=== PATIENT | female | born 1990 | race Caucasian/White ===

== ENCOUNTER 2018-05-17 04:08 | Inpatient (IN) | payer SELFPAY ==
[2018-05-17] MEDS ORDERED: NA CHLORIDE 0.9% 1,000 ML ONE (04:36)
[2018-05-17 05:16] LABS: Urine Blood TRACE (NEG); Urine Glucose 2+ (NEG); Urine Protein NEGATIVE (NEG); Urine Specific Gravity 1.015 (1.005-1.030)
[2018-05-17 05:37] LABS: Urine Culture Reflex Order REFLEXED
[2018-05-17 05:38] LABS: Urine Bacteria 20-50 /HPF (<20); Urine RBC <5 /HPF (NONE SEEN)
[2018-05-17 06:22] LABS: Absolute Lymphocytes (CBC) 0.9 K/uL (0.7-4.9); Absolute Monocytes 0.5 K/uL (0.1-1.3); Absolute Neutrophil 5.1 K/uL (1.8-8.0); Basophils % 0.4 % (0-1.3); Eosinophils % 1.1 % (0-4.4); Hematocrit 38.5 % (36.0-45.0); MCH 28.1 pg (27.0-35.0); MCV 83.6 fL (80-100); MPV 8.6 fL (7.6-11.3); Monocytes % 8.1 % (3.3-12.3)
[2018-05-17 06:34] LABS: BUN Blood Urea Nitrogen 16 mg/dL (7-18); Bicarbonate 26 mmol/L (21-32); Glucose Level 185 mg/dL (74-106); Magnesium 2.2 mg/dL (1.8-2.4); Phosphorus 1.1 mg/dL (2.5-4.9); Potassium 3.4 mmol/L (3.5-5.1); Sodium Level 138 mmol/L (136-145)
--- NOTE | 2018-05-17 06:56 | EDPHYS ---
Physician Documentation [facility] Name: Georgiana Fenton Age: 27 yrs Sex: Female : 1990 Arrival Date: 05/17/2018 Time: 04:15 Bed 7 Private MD: ED Physician Bautista Diggs HPI: 05/17 06:51 This 27 yrs old Female presents to ER via Ambulatory with complaints of Back gs Pain, Abdominal Pain. 06:51 The patient presents with pain that is acute. The symptoms are located in the low back. gs Onset: The symptoms/episode began/occurred 2 day(s) ago. Associated signs and symptoms: Pertinent negatives: fever. Severity of symptoms: At their worst the symptoms were moderate, in the emergency department the symptoms are unchanged. The patient has experienced similar episodes in the past, a few times. 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 - Social history:: Smoking status: Patient/guardian denies using tobacco. - Ebola Screening: : No symptoms or risks identified at this time. ROS: 06:51 All other systems are negative. gs Exam: 06:51 Head/Face: Normocephalic, atraumatic. Eyes: Pupils equal round and reactive to light, gs extra-ocular motions intact. Lids and lashes normal. Conjunctiva and sclera are non-icteric and not injected. Cornea within normal limits. Periorbital areas with no swelling, redness, or edema. ENT: Nares patent. No nasal discharge, no septal abnormalities noted. Tympanic membranes are normal and external auditory canals are clear. Oropharynx with no redness, swelling, or masses, exudates, or evidence of obstruction, uvula midline. Mucous membranes moist. Neck: Trachea midline, no thyromegaly or masses palpated, and no cervical lymphadenopathy. Supple, full range of motion without nuchal rigidity, or vertebral point tenderness. No Meningismus. Chest/axilla: Normal chest wall appearance and motion. Nontender with no deformity. No lesions are appreciated. 06:51 Respiratory: Lungs have equal breath sounds bilaterally, clear to auscultation and percussion. No rales, rhonchi or wheezes noted. No increased work of breathing, no retractions or nasal flaring. Abdomen/GI: Soft, non-tender, with normal bowel sounds. No distension or tympany. No guarding or rebound. No evidence of tenderness throughout. Skin: Warm, dry with normal turgor. Normal color with no rashes, no lesions, and no evidence of cellulitis. MS/ Extremity: Pulses equal, no cyanosis. Neurovascular intact. Full, normal range of motion. Neuro: Awake and alert, GCS 15, oriented to person, place, time, and situation. Cranial nerves II-XII grossly intact. Motor strength 5/5 in all extremities. Sensory grossly intact. Cerebellar exam normal. Normal gait. 06:51 Constitutional: The patient appears alert, awake. 06:51 Cardiovascular: Rate: tachycardic, Rhythm: regular, Pulses: no pulse deficits are appreciated. 06:51 Back: CVA tenderness, that is moderate, is noted on the right. Vital Signs: 04:30 BP 146 / 92; Pulse 111; Resp 18; Temp 98.4(O); Pulse Ox 98% on R/A; Weight 61.23 kg; lp1 Height 5 ft. 3 in. (160.02 cm); Pain 8/10; 05:30 BP 121 / 82; Pulse 104; Resp 16; Pulse Ox 98% on R/A; lp1 06:45 BP 123 / 81; Pulse 102; Resp 16; Pulse Ox 97% on R/A; lp1 07:48 BP 121 / 82; Pulse 93; Resp 18; Pulse Ox 96% on R/A; Pain 7/10; ph 09:44 BP 119 / 76; Pulse 94; Resp 18; Pulse Ox 97% ; ph 10:37 BP 116 / 74; Pulse 100; Resp 18; Pulse Ox 100% on R/A; aj1 04:30 Body Mass Index 23.91 (61.23 kg, 160.02 cm) lp1 MDM: 04:26 Patient medically screened. gs 06:51 Differential diagnosis: Pyelonephritis sprain. Data reviewed: vital signs, nurses gs notes. Response to treatment: the patient's symptoms have mildly improved after treatment. 05/17 04:25 Order name: Basic Metabolic Panel 05/17 04:25 Order name: CBC with Diff 05/17 04:25 Order name: Magnesium 05/17 04:25 Order name: Urine Microscopic Only 05/17 04:25 Order name: Phosphorus 05/17 04:28 Order name: Urine Dipstick--Ancillary (enter results) [facility] 05/17 04:28 Order name: Urine --Ancillary (enter results) [facility] 05/17 05:16 Order name: Urine --Ancillary; Complete Time: 06:42 EDMS 05/17 05:16 Order name: Urine Dipstick-Ancillary; Complete Time: 06:42 EDMS 05/17 05:38 Order name: Urine Microscopic Only; Complete Time: 06:42 EDMS 05/17 06:24 Order name: CBC with Automated Diff; Complete Time: 07:03 EDMS 05/17 06:34 Order name: Basic Metabolic Panel; Complete Time: 07:03 EDMS 05/17 06:34 Order name: Phosphorus; Complete Time: 07:03 EDMS 05/17 06:34 Order name: Magnesium; Complete Time: 07:03 EDMS 05/17 04:25 Order name: Cardiac monitoring; Complete Time: 05:25 05/17 04:25 Order name: IV Saline Lock; Complete Time: 05:25 05/17 04:25 Order name: Labs collected and sent; Complete Time: 05:04 05/17 04:25 Order name: O2 Per Protocol; Complete Time: 04:53 05/17 04:25 Order name: O2 Sat Monitoring; Complete Time: 04:53 05/17 04:25 Order name: Urine Dipstick-Ancillary (obtain specimen); Complete Time: 04:26 05/17 08:51 Order name: CT EDMS Administered Medications: 05:25 Drug: NS 0.9% 1000 ml Route: IV; Rate: 1 bolus; Site: left antecubital; lp1 07:02 Drug: Rocephin - (cefTRIAXone) 1 grams Route: IVPB; Infused Over: 30 mins; Site: left lp1 antecubital; 07:46 Follow up: Response: No adverse reaction; IV Status: Completed infusion ph 07:28 Drug: Potassium Phosphate 15 mmol Route: IV; Rate: 15 calculated rate; Site: left ph antecubital; 07:47 Follow up: Response: No adverse reaction; IV Status: Infusion continued upon admission ph 07:46 Drug: morphine 4 mg Route: IVP; Site: left antecubital; ph 08:00 Follow up: Response: No adverse reaction; Pain is decreased ph 07:46 Drug: Zofran 4 mg Route: IVP; Site: left antecubital; ph 08:00 Follow up: Response: No adverse reaction; Nausea is increased ph 07:57 Drug: Zofran 4 mg Route: IVP; Site: left antecubital; ph 18:40 Follow up: Response: No adverse reaction ph 08:45 Drug: Phenergan 12.5 mg Route: IVP; Site: right wrist; ph 09:10 Follow up: Response: No adverse reaction; Nausea is decreased; Vomiting decreased ph Disposition: 05/17/18 06:54 Hospitalization ordered by Felix Aguirre for Observation. Preliminary diagnosis are Acute tubulo-interstitial nephritis, hypophosphatemia. - Bed requested for Telemetry/MedSurg (observation). - Status is Observation. ph - Condition is Stable. - Problem is new. - Symptoms have improved. UTI on Admission? Yes Signatures: Dispatcher [employer] EDMS Brigitte Carpenter Laura, RN RN lp1 Paz Jiménez RN RN ph Diggs, MD RIGOBERTO Baum Corrections: (The following items were deleted from the chart) 10:02 06:54 Hospitalization Ordered by Felix Aguirre MD for Observation. Preliminary bd diagnosis is Acute tubulo-interstitial nephritis; hypophosphatemia. Bed requested for Telemetry/MedSurg (observation). Status is Observation. Condition is Stable. Problem is new. Symptoms have improved. UTI on Admission? Yes. gs 10:48 10:02 05/17/2018 06:54 Hospitalization Ordered by Felix Aguirre MD for Observation. ph Preliminary diagnosis is Acute tubulo-interstitial nephritis; hypophosphatemia. Bed requested for Telemetry/MedSurg (observation). Status is Observation. Condition is Stable. Problem is new. Symptoms have improved. UTI on Admission? Yes. bd
--- NOTE | 2018-05-17 06:56 | ER ---
Nurse's Notes [facility] Name: Georgiana Fenton Age: 27 yrs Sex: Female : 1990 Arrival Date: 05/17/2018 Time: 04:15 Bed 7 Private MD: Diagnosis: Acute tubulo-interstitial nephritis;hypophosphatemia Presentation: 05/17 04:25 Presenting complaint: Patient states: Lower back pain to right and left flanks, lower lp1 pelvic pain x 1 day; complaint of diarrhea, nausea; Denies fever. Transition of care: patient was not received from another setting of care. Onset of symptoms was May 16, 2018. Risk Assessment: Do you want to hurt yourself or someone else? Patient reports no desire to harm self or others. Initial Sepsis Screen: Does the patient meet any 2 criteria? No. Patient's initial sepsis screen is negative. Does the patient have a suspected source of infection? No. Patient's initial sepsis screen is negative. Care prior to arrival: Glucose check: 340. 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 - Social history:: Smoking status: Patient/guardian denies using tobacco. - Ebola Screening: : No symptoms or risks identified at this time. Screenin:31 Abuse screen: Denies threats or abuse. Denies injuries from another. Nutritional lp1 screening: No deficits noted. Tuberculosis screening: No symptoms or risk factors identified. Fall Risk None identified. Assessment: 04:31 General: Appears uncomfortable, Behavior is appropriate for age. Pain: Complains of lp1 pain in left low back, right low back, right lower quadrant and left lower quadrant Pain currently is 8 out of 10 on a pain scale. Quality of pain is described as sharp, Is intermittent. Neuro: Level of Consciousness is awake, alert, obeys commands. Cardiovascular: Patient's skin is warm and dry. Respiratory: Respiratory effort is even, unlabored. GI: Abdomen is non-distended, Abdomen is tender to palpation in right lower quadrant and left lower quadrant Reports lower abdominal pain, diarrhea, nausea. : No signs and/or symptoms were reported regarding the genitourinary system. EENT: No signs and/or symptoms were reported regarding the EENT system. Derm: Skin is pink, warm \\T\\ dry. Musculoskeletal: Circulation, motion, and sensation intact. 05:30 Reassessment: Patient appears in no apparent distress at this time. No changes from lp1 previously documented assessment. 06:30 Reassessment: Patient is alert, oriented x 3, equal unlabored respirations, skin lp1 warm/dry/pink. Patient states feeling better. Patient states symptoms have improved. 07:47 Reassessment: Patient appears in no apparent distress at this time. Patient and/or ph family updated on plan of care and expected duration. Pain level reassessed. Patient is alert, oriented x 3, equal unlabored respirations, skin warm/dry/pink. Pt resting quietly, c/o "slight" nausea and low back pain 12/24, ERP notified, see MAR, VSS at this time, awaiting room assignment. 07:57 Reassessment: Pt c/o nausea after receiving pain medication, ERP notified, additional ph antiemetic administered, see MAR. 08:45 Reassessment: Patient appears in no apparent distress at this time. Patient and/or ph family updated on plan of care and expected duration. Pain level reassessed. Patient is alert, oriented x 3, equal unlabored respirations, skin warm/dry/pink. Pt returned from CT, c/o nausea and noted to be actively vomiting, ERP notified, see MAR. 09:43 Reassessment: Patient appears in no apparent distress at this time. Patient and/or ph family updated on plan of care and expected duration. Pain level reassessed. Patient is alert, oriented x 3, equal unlabored respirations, skin warm/dry/pink. Pt resting quietly, reports that nausea has improved, awaiting room assignment. 10:37 Reassessment: Patient appears in no apparent distress at this time. No changes from aj1 previously documented assessment. Patient and/or family updated on plan of care and expected duration. Pain level reassessed. Patient is alert, oriented x 3, equal unlabored respirations, skin warm/dry/pink. Vital Signs: 04:30 BP 146 / 92; Pulse 111; Resp 18; Temp 98.4(O); Pulse Ox 98% on R/A; Weight 61.23 kg; lp1 Height 5 ft. 3 in. (160.02 cm); Pain 8/10; 05:30 BP 121 / 82; Pulse 104; Resp 16; Pulse Ox 98% on R/A; lp1 06:45 BP 123 / 81; Pulse 102; Resp 16; Pulse Ox 97% on R/A; lp1 07:48 BP 121 / 82; Pulse 93; Resp 18; Pulse Ox 96% on R/A; Pain 7/10; ph 09:44 BP 119 / 76; Pulse 94; Resp 18; Pulse Ox 97% ; ph 10:37 BP 116 / 74; Pulse 100; Resp 18; Pulse Ox 100% on R/A; aj1 04:30 Body Mass Index 23.91 (61.23 kg, 160.02 cm) lp1 ED Course: 04:15 Patient arrived in ED. es 04:17 Bautista Diggs MD is Attending Physician. gs 04:24 Margy Cross, RN is Primary Nurse. lp1 04:28 Triage completed. lp1 04:31 Arm band placed on. lp1 04:36 Patient has correct armband on for positive identification. lp1 04:50 Missed attempt(s): 20 gauge in right forearm. 22 gauge in right antecubital area. jb4 04:51 Urine Microscopic Only Sent. jb4 05:04 Magnesium Sent. jb4 05:04 Basic Metabolic Panel Sent. jb4 05:04 CBC with Diff Sent. jb4 05:04 Phosphorus Sent. jb4 05:24 Missed attempt(s): 22 gauge in left forearm. Inserted saline lock: 20 gauge in left lp1 antecubital area, using aseptic technique. Blood collected. 06:53 Felix Aguirre MD is Hospitalizing Provider. gs 07:49 Primary Nurse role handed off by Margy Cross, RN ph 07:49 Paz Jiménez, RN is Primary Nurse. ph 08:45 Inserted saline lock: 22 gauge in right wrist, using aseptic technique. inserted while ph in radiology for CT scan, 20 g to LAC d/c, intact, bleeding controlled. 10:36 Report given to LOWELL Mohamud on 2nd floor. aj1 10:38 No provider procedures requiring assistance completed. Patient admitted, IV remains in aj1 place. Administered Medications: 05:25 Drug: NS 0.9% 1000 ml Route: IV; Rate: 1 bolus; Site: left antecubital; lp1 07:02 Drug: Rocephin - (cefTRIAXone) 1 grams Route: IVPB; Infused Over: 30 mins; Site: left lp1 antecubital; 07:46 Follow up: Response: No adverse reaction; IV Status: Completed infusion ph 07:28 Drug: Potassium Phosphate 15 mmol Route: IV; Rate: 15 calculated rate; Site: left ph antecubital; 07:47 Follow up: Response: No adverse reaction; IV Status: Infusion continued upon admission ph 07:46 Drug: morphine 4 mg Route: IVP; Site: left antecubital; ph 08:00 Follow up: Response: No adverse reaction; Pain is decreased ph 07:46 Drug: Zofran 4 mg Route: IVP; Site: left antecubital; ph 08:00 Follow up: Response: No adverse reaction; Nausea is increased ph 07:57 Drug: Zofran 4 mg Route: IVP; Site: left antecubital; ph 18:40 Follow up: Response: No adverse reaction ph 08:45 Drug: Phenergan 12.5 mg Route: IVP; Site: right wrist; ph 09:10 Follow up: Response: No adverse reaction; Nausea is decreased; Vomiting decreased ph Outcome: 06:54 Decision to Hospitalize by Provider. gs 10:45 Admitted to Med/surg accompanied by tech, via stretcher, with chart. ph 10:45 Condition: good 10:45 Instructed on the need for admit. 10:48 Patient left the ED. ph Signatures: Falguni Avila RN RN aj1 Linda Quinones Laura, RN RN lp1 Paz Jiménez RN RN ph Trip José RN RN jb4 Bautista Diggs MD MD gs
[2018-05-17] MEDS ORDERED: CEFTRIAXONE/SWI 1gm 1 GM/10 ML SYR ONE (07:04)
[2018-05-17] MEDS ORDERED: POTASSIUM PHOS IN 0.9 % NACL 15 MMOL/250 ML BAG IV ONE (07:07)
[2018-05-17] MEDS ORDERED: ONDANSETRON 4 MG/2 ML VIAL IV PRN (07:38)
[2018-05-17] MEDS ORDERED: MORPHINE 2 MG/ML SYR IV PRN (07:38)
[2018-05-17] MEDS ORDERED: ACETAMINOPHEN 500 MG TAB PO PRN (07:38)
[2018-05-17] MEDS ORDERED: ONDANSETRON 4 MG/2 ML VIAL ONE (07:41)
[2018-05-17] MEDS ORDERED: MORPHINE 4 MG/ML SYR ONE (07:41)
[2018-05-17] MEDS ORDERED: POTASSIUM PHOS 30 MM in NA CHLORIDE 0.9% 500 ML IV ONE (07:43)
[2018-05-17] MEDS: NA CHLORIDE 0.9% 1,000 ML IV SCH ×3 (08:00→18:00)
[2018-05-17] MEDS ORDERED: PROMETHAZINE 25 MG/ML VIAL ONE (08:44)
--- NOTE | 2018-05-17 08:50 | RAD REPORT ---
EXAM DESCRIPTION: CTAbdomen Pelvis W Contrast - 05/17/2018 8:31 am CLINICAL HISTORY: Abdominal pain. Abdominal pain/pyelonephritis/back pain COMPARISON: CT ABD PELVIS W CONTRAST dated 04/06/2014; CT ABD PELVIS W CONTRAST dated 12/18/2013 TECHNIQUE: Biphasic CT imaging of the abdomen and pelvis was performed with 100 ml non-ionic IV cont rast. All CT scans are performed using dose optimization technique as appropriate and may include automated exposure control or mA/KV adjustment according to patient size. FINDINGS: The lung bases are clear.Cholecystectomy clips. The liver, spleen, pancreas, adrenal glands and left kidney are within normal limits. Punctate right nephrolithiasis. No bowel obstruction, free air, free fluid or abscess. The appendix is normal. No evidence of signi ficant lymphadenopathy. No suspicious bony findings. IMPRESSION: Punctate right nephrolithiasis without hydronephrosis. Normal appendix.
--- NOTE | 2018-05-17 08:53 | P.HP ---
Certification for Inpatient Patient admitted to: Observation With expected LOS: <2 Midnights Patient will require the following post-hospital care: None Practitioner: I am a practitioner with admitting privileges, knowledge of patient current condition, hospital course, and medical plan of care. Services: Services provided to patient in accordance with Admission requirements found in Title 42 Section 412.3 of the Code of Federal Regulations Patient History Date of Service: 05/17/18 Reason for admission: Abdominal pain and back pain along with nausea History of Present Illness: Patient is a 27-year-old female came into the hospital with abdominal pain. Patient also been having some flank tenderness. She came into the emergency room because her symptoms were not improving. Patient has been feeling really weak. She had hypophosphatemia. She has also had some diarrhea. She came into the ER because she has was feeling worse. Patient will be admitted to the hospital for further workup. Allergies No Known Drug Allergies Allergy (Verified 06/24/14 06:18) Unknown Home Medications: Insulin -Regular Human [Novolin -R*] 1 dose IJ ACHS 06/27/14 Ondansetron [Zofran (Odt)*] 4 mg PO Q6H PRN 07/01/14 Insulin NPH Human [Novolin N (Humulin N)*] 10 units SQ BIDWM #10 ml 07/05/14 LORazepam [Ativan*] 0.5 mg PO Q6HR PRN #30 tab 07/05/14 - Past Medical/Surgical History Diabetic: Yes -: DM1 -: Anxiety -: Intractable vomiting (03/2014) -: Abdominal pain/Periumbilical -: Gastroparesis -: Cholecystectomy - Family History Father Family History: Reviewed- Non-Contributory - Social History Smoking Status: Unknown if ever smoked Alcohol use: No CD- Drugs: No Caffeine use: Yes Review of Systems 10-point ROS is otherwise unremarkable Physical Examination - Vital Signs Temperature: 98 F Blood Pressure: 140/70 Pulse: 80 Respirations: 18 Pulse Ox (%): 96 - Physical Exam General: Alert, In no apparent distress, Oriented x3 HEENT: Atraumatic, Normocephalic, PERRLA Neck: Supple, 2+ carotid pulse no bruit, JVD not distended, No Thyromegaly Respiratory: Clear to auscultation bilaterally, Normal air movement Cardiovascular: Regular rate/rhythm, Normal S1 S2, No murmurs Gastrointestinal: Normal bowel sounds, Hypoactive, Soft and benign, Non- distended, W/out hepatomegaly Musculoskeletal: No clubbing, No swelling, No contractures, No erythema Integumentary: No rashes Neurological: Normal gait, Normal speech, Normal strength at 5/5 x4 extr, Normal tone, Sensation intact, Cranial nerves 3-12 intact Lymphatics: No axilla or inguinal lymphadenopathy External genitalia: No edema - Studies Laboratory Data (last 24 hrs) 05/17/18 06:12: WBC 6.6, Hgb 12.9, Hct 38.5, Plt Count 260 05/17/18 06:12: Sodium 138, Potassium 3.4 L, BUN 16, Creatinine 0.70, Glucose 185 H, Phosphorus 1.1 L, Magnesium 2.2 Assessment & Plan - Problems (Diagnosis) (1) Flank pain Current Visit: Yes Status: Acute (2) Diarrhea Current Visit: Yes Status: Acute (3) Hypophosphatemia Current Visit: Yes Status: Acute (4) Abdominal pain Onset Date: 04/08/14 Current Visit: No Status: Acute (5) Diabetes mellitus type 1 Onset Date: 04/14/14 Current Visit: No Status: Acute - Plan Plan: 1. IV hydration 2. Stool studies 3. CT abdomen and pelvis 4. IV antibiotics 5. Pain control 6. Replace phosphorus 7. GI and DVT prophylaxis Discharge Plan: Home Plan to discharge in: 24 Hours - Advance Directives Does patient have a Living Will: No Does patient have a Durable POA for Healthcare: No - Code Status/Comfort Care Code Status Assessed: Yes Code Status: Full Code Critical Care: No Time Spent Managing PTS Care (In Minutes): 50
[2018-05-17] MEDS ORDERED: HYDROCODONE/APAP 5/325 MG TAB PO PRN (08:54)
[2018-05-17 11:28] VITALS: BMI 23.9
[2018-05-17] MEDS ORDERED: D50W 25 GM/50 ML SYRINGE IV PRN (13:23)
[2018-05-17] MEDS ORDERED: GLUCAGON 1 MG/VIAL IM PRN (13:23)
[2018-05-17] MEDS ORDERED: CEFTRIAXONE 1 GM/NS 50 ML 1 GM/50 ML BAG IV SCH (14:00)
[2018-05-17] MEDS: INSULIN -REGULAR HUMAN 50 UNIT/0.5 ML ML SQ SCH ×2 (17:55→21:00)
--- NOTE | 2018-05-17 19:28 | PN ---
Date of Progress Note: 05/17/2018 Subjective: Patient seen and examined. Chart reviewed and case discussed with RN. The patient still complaining of some diarrhea and nausea, but has not thrown up since earlier this morning. Would like to try some liquids. Pain is controlled. Medications: List reviewed. Physical Examination: Vital Signs: Temperature 98, heart rate 80, blood pressure 140/70, respirations 18, O2 96% on room air. General: Awake, alert, oriented x3, in some mild distress due to abdominal discomfort, ill-appearing female. CV: S1, S2. Peripheral pulses present. No murmurs respiratory moving air well bilaterally. No wheezing or stridor. No use of accessory muscles. Gastrointestinal: Abdomen is soft. Mild tenderness to palpation. No guarding or rigidity. Bowel sounds positive. Extremities: No clubbing, cyanosis, or edema. No calf tenderness. Skin: No rash. Skin turgor. Neuro: Cranial nerves 2 through 12 intact grossly. No focal neurological deficit. Speech is normal. Laboratory Data: Sodium 138, potassium 3.4, chloride 105, CO2 26, BUN 16, creatinine 0.7, glucose 185. Hemoglobin A1c pending. Calcium 7.8, phosphorus 1.1. WBC 6.6, hemoglobin and hematocrit 12.9 and 38.5, platelets 260, neutrophils 77%. CT scan of the abdomen and pelvis shows a punctate right nephrolithiasis without hydronephrosis. Normal appendix. Assessment: A 27-year-old female with: 1. Flank pain may be related to nephrolithiasis. 2. Intractable nausea and vomiting. Continue antiemetics. The patient may have an element of diabetic gastroparesis. She is a type 1 diabetic since the age of 14, not well controlled. We will continue with symptomatic treatment. Continue IV fluids. 3. Diarrhea rule out Clostridium difficile. We will obtain stool sample. Follow up on stool studies. 4. Generalized abdominal pain secondary to above. 5. Diabetes mellitus type 1 with hyperglycemia. 6. Anxiety disorder, on Ativan p.r.n. 7. Diabetic gastroparesis. 8. Hypokalemia. We will replace and monitor. 9. Hypophosphatemia. We will replace and monitor. 10. Hypocalcemia. 11. Acute cystitis without hematuria. We will continue with IV antibiotics. Follow up on urine culture. Likely discharge in the next 24 to 48 hours pending on clinical response. We will add mild sliding-scale insulin a.c. and at bedtime. Once the patient is able to tolerate p.o. intake, we will resume home dose of long-acting insulin. Check A1C. /NU Voice ID: [id number] Report ID: [id number] MTDD
[2018-05-18] MEDS: NA CHLORIDE 0.9% 1,000 ML IV SCH ×4 (00:15→20:21)
[2018-05-18 05:14] LABS: Absolute Lymphocytes (CBC) 1.7 K/uL (0.7-4.9); Absolute Monocytes 0.5 K/uL (0.1-1.3); Absolute Neutrophil 1.2 K/uL (1.8-8.0); Basophils % 0.7 % (0-1.3); Hematocrit 31.8 % (36.0-45.0); Lymphocytes % 47.5 % (15.3-44.8); MCH 28.1 pg (27.0-35.0); MCV 84.1 fL (80-100); MPV 8.9 fL (7.6-11.3); Monocytes % 13.2 % (3.3-12.3); RBC Red Blood Cell Count 3.78 M/uL (3.86-4.86)
[2018-05-18 05:38] LABS: Albumin 2.8 g/dL (3.4-5.0); Alkaline Phosphatase 221 U/L (45-117); BUN Blood Urea Nitrogen 6 mg/dL (7-18); Bicarbonate 25 mmol/L (21-32); Bilirubin Total 0.3 mg/dL (0.2-1.0); Glucose Level 212 mg/dL (74-106); Potassium 3.4 mmol/L (3.5-5.1); Protein, Total 6.1 g/dL (6.4-8.2); Sodium Level 140 mmol/L (136-145)
[2018-05-18 05:41] LABS: ALT/SGPT 533 U/L (12-78); AST/SGOT 594 U/L (15-37)
[2018-05-18] MEDS ORDERED: NPH (HUMAN) 100 UNITS/ML INSULIN SQ SCH (08:00)
[2018-05-18] MEDS ORDERED: CEFTRIAXONE/SWI 1gm 1 GM/10 ML SYR IV SCH (09:00)
[2018-05-18] MEDS ORDERED: CEFTRIAXONE 1 GM/NS 50 ML 1 GM/50 ML BAG IV SCH (09:03)
[2018-05-18] MEDS: INSULIN -REGULAR HUMAN 50 UNIT/0.5 ML ML SQ SCH ×4 (09:35→21:50)
[2018-05-18 10:51] LABS: Absolute Lymphocytes (CBC) 1.6 K/uL (0.7-4.9); Absolute Monocytes 0.5 K/uL (0.1-1.3); Absolute Neutrophil 3.7 K/uL (1.8-8.0); Basophils % 0.6 % (0-1.3); Eosinophils % 2.9 % (0-4.4); Hematocrit 33.9 % (36.0-45.0); Lymphocytes % 27.1 % (15.3-44.8); MCV 84.9 fL (80-100); MPV 8.9 fL (7.6-11.3); Monocytes % 8.5 % (3.3-12.3)
[2018-05-18 11:26] LABS: Alkaline Phosphatase 231 U/L (45-117); BUN Blood Urea Nitrogen 7 mg/dL (7-18); Bicarbonate 23 mmol/L (21-32); Bilirubin Total 0.3 mg/dL (0.2-1.0); Magnesium 2.3 mg/dL (1.8-2.4); Phosphorus 2.2 mg/dL (2.5-4.9); Protein, Total 6.4 g/dL (6.4-8.2); Sodium Level 137 mmol/L (136-145)
[2018-05-18 11:40] LABS: ALT/SGPT 509 U/L (12-78); AST/SGOT 429 U/L (15-37); Glucose Level 434 mg/dL (74-106)
[2018-05-18] MEDS: INSULIN GLARGINE 100 UNITS/ML SQ SCH (12:21)
[2018-05-18 19:45] VITALS: O2SAT 98
--- NOTE | 2018-05-18 21:12 | PN ---
Date of Progress Note: 05/18/2018 Subjective: The patient was seen and examined. Chart reviewed and case discussed with RN. The patient states her condition is improved. Not having as much nausea. No vomiting. The patient was able to tolerate her clear liquid diet. Abdominal pain is improved. Medications: List reviewed. Physical Examination: Vital Signs: Temperature 97, heart rate 75, blood pressure 121/70, respirations 20, O2 98% on room air. General: Awake, alert, oriented x3. Some mild distress, ill-appearing female. CV: S1, S2. No murmurs. Regular rate and rhythm. Peripheral pulses present. Respiratory: Moving air well bilaterally. No wheezing. Gastrointestinal: Abdomen is mildly tender. No rebound or guarding. Nondistended. Positive bowel sounds. Extremities: No clubbing, cyanosis, edema. Neurologic: Nonfocal. Laboratory Data: Sodium 137, potassium 4, chloride 105, CO2 23, BUN 7, creatinine 0.6, glucose 434. Hemoglobin A1c pending. Calcium 7.5, phosphorus 2.2, magnesium 2.3. AST 429, ALT 509, WBC 6, H and H 11.2 and 33.9, platelets 220. Stool culture pending. Urine culture, mixed jeremy. Assessment And Plan: A 27-year-old female with: 1. Flank pain, likely secondary to nephrolithiasis. 2. Right nephrolithiasis without hydronephrosis. Continue with IV fluid hydration. 3. Intractable nausea and vomiting. Continue antiemetics, improved. We will advance diet as tolerated. 4. Diarrhea, rule out Clostridium difficile. Obtain stool culture, improving. 5. Generalized abdominal pain secondary to above, improved. 6. Elevated liver enzymes, possibly due to medication side effect. Hepatitis panel is pending. 7. Diabetes mellitus type 1 with hyperglycemia. We will adjust insulin dose. The patient has only been taking insulin as needed. She is not on any long- acting insulin at home. She needs to follow up with her established care with PCP and prover. 8. Generalized anxiety disorder. Ativan p.r.n. 9. Diabetic gastroparesis. 10. Hypokalemia. Replace and monitor. 11. Hypophosphatemia. Replace and monitor. 12. Hypocalcemia, corrected. 13. Acute cystitis without hematuria. Urine culture growing mixed jeremy. We will discontinue IV antibiotics. Plan: Follow up on hepatitis panel. Trend LFTs, likely discharge in the next 24 hours depending on diet and clinical status. SA/MODNathan Voice ID: [id number] Report ID: [id number] MICHELLE
[2018-05-19] MEDS: NA CHLORIDE 0.9% 1,000 ML IV SCH (04:01)
[2018-05-19 06:55] LABS: Protime INR 0.88
[2018-05-19 06:56] LABS: AST/SGOT 148 U/L (15-37); Albumin 2.9 g/dL (3.4-5.0); Alkaline Phosphatase 200 U/L (45-117); BUN Blood Urea Nitrogen 6 mg/dL (7-18); Bicarbonate 27 mmol/L (21-32); Bilirubin Total 0.2 mg/dL (0.2-1.0); Glucose Level 118 mg/dL (74-106); Lipase 96 U/L (73-393); Potassium 3.8 mmol/L (3.5-5.1); Protein, Total 6.3 g/dL (6.4-8.2); Sodium Level 143 mmol/L (136-145)
[2018-05-19 06:57] LABS: ALT/SGPT 343 U/L (12-78)
[2018-05-19 07:05] LABS: Absolute Lymphocytes (CBC) 2.7 K/uL (0.7-4.9); Absolute Monocytes 0.4 K/uL (0.1-1.3); Absolute Neutrophil 1.6 K/uL (1.8-8.0); Basophils % 0.7 % (0-1.3); Hematocrit 32.5 % (36.0-45.0); Lymphocytes % 54.5 % (15.3-44.8); MCH 28.5 pg (27.0-35.0); MCV 83.7 fL (80-100); MPV 9.2 fL (7.6-11.3); Monocytes % 8.6 % (3.3-12.3); RBC Red Blood Cell Count 3.88 M/uL (3.86-4.86)
[2018-05-19] MEDS: INSULIN -REGULAR HUMAN 50 UNIT/0.5 ML ML SQ SCH ×2 (07:30→11:49)
[2018-05-19] MEDS: INSULIN GLARGINE 100 UNITS/ML SQ SCH (09:34)
[2018-05-19 15:14] VITALS: BP 115/73; TEMP 97.9
--- NOTE | 2018-05-20 06:23 | DS ---
Date of Discharge: 05/19/2018 Admitting Diagnoses: 1.Flank pain. 2.Diarrhea. 3.Hypophosphatemia. 4.Abdominal pain. 5.Diabetes mellitus type 1 with hyperglycemia. Discharge Diagnoses: A 27-year-old female with: 1.Flank pain, likely secondary to nephrolithiasis. 2.Right nephrolithiasis without hydronephrosis. 3.Intractable nausea and vomiting, resolved. 4.Diarrhea, resolved. 5.Generalized abdominal pain secondary to above. 6.Elevated liver enzymes; doubt hepatitis, panel pending, likely secondary to side effect from Rocep hin and that was trending down. 7.Diabetes mellitus type 1 with hyperglycemia. Patient counseled regarding diabetes. We will be fo llowing up with diabetes education as an outpatient to [place] [facility]. Patient needs to estab [facility] with PCP and investigative writer. 8.Generalized anxiety disorder, stable. 9.Possible diabetic gastroparesis. Patient tolerating diet. 10.Hypokalemia, replaced. 11.Hypophosphatemia, corrected. 12.Hypocalcemia. Adjusted calcium level was normal. 13.Acute cystitis without hematuria. Urine culture growing mixed jeremy. She was treated with Rocep hin. No further need for antibiotics. Hospital Course: The patient is a 27-year-old type 1 diabetic, who came into the hospital with diarr hea, flank pain. CT scan of the abdomen and pelvis showed nephrolithiasis, but no hydronephrosis or obstruction. Patient was started on IV antibiotics. She did have some acute cystitis. Her urine cu ltures grew out mixed jeremy. Patient did seem to have side effect of Rocephin with elevated liver en zymes. Therefore, Rocephin was discontinued. Patient did have significant amount of nausea, vomitin g, and diarrhea, which improved with symptomatic treatment. Stool studies were also obtained. Declan diggs remained afebrile. Her vital signs were stable. She was counseled extensively regarding her diab etes and she was provided a list of primary care physicians to follow up with her A1c as well as to c oordinate her diabetic care including dilated eye exam and podiatry exam yearly. Patient has been us ing insulin as needed depending on her blood sugar levels that day. She understands that she needs t o be on a more controlled regimen. We will need to follow her blood sugars closely and adjust her in sulin dose. Hepatitis panel also obtained due to her elevated liver enzymes, which is currently pend ing. She needs to follow up with hepatitis panel with her primary care physician. Her liver enzymes trending downwards. Patient was then able to ambulate. She was tolerating her diet. No longer had any diarrhea, nausea, or vomiting. Patient was then cleared for discharge and sent home in a stable condition. Activity: As tolerated. Medications: As per medication reconciliation list. Followup: With diabetic education. Establish care with PCP in 2-3 days. Repeat CMP in 1 week. Fol low up with hepatitis panel through PCP or through medical records. Diet: Diabetic diet. Physical Examination: General: Awake, alert, oriented x3. No acute distress. Cardiovascular: S1, S2. No murmurs. Respiratory: Moving air well bilaterally. Abdomen: Soft, nontender, nondistended. Positive bowel sounds. Extremities: No clubbing, cyanosis, or edema. Neurologic: Nonfocal. Total time spent discharging the patient was 41 minutes. ANDREW Voice ID: [id number] Report ID: [id number]
[2018-05-21 04:20] LABS: HBsAG Nonreactive (Nonreactive); Hepatitis A IgM Antibody Nonreactive
== END 2018-05-19 13:26 | disposition home or self-care (01) | DRG 694 ==
LOC: ER 04:08 → OBSVTOIN 06:56 → ERHOLD 06:56 → INTOOBSV 06:56 → 2ND 10:39 → OBSVTOIN 05-19 04:15
PROVIDERS: ADMIT Hospitalist; ATTEND Family Medicine
DX: N20.0 Calculus of kidney (principal); E10.65 Type 1 diabetes mellitus with hyperglycemia; F41.1 Generalized anxiety disorder; E87.6 Hypokalemia; E83.39 Other disorders of phosphorus metabolism; E83.51 Hypocalcemia; N30.90 Cystitis, unspecified without hematuria; E10.43 Type 1 diabetes mellitus with diabetic autonomic (poly)neuropathy; K31.84 Gastroparesis; R19.7 Diarrhea, unspecified
CPT/HCPCS: 36415; 74177; 80048; 80053; 80074; 81003; 81015; 81025; 82962; 83036; 83690; 83735; 84100; 84132; 85025; 85610; 85730; 87045; 87046; 87086; 87088; 99285; G0378; J0696; J2405; J2550; J7030; Q9967

== ENCOUNTER 2020-07-10 09:09 | Emergency (ER) | payer BC, SELFPAY ==
--- OUTSIDE RECORDS SUMMARY | 2020-07-10 09:11 | XMS REPORT | Summary of Care ---
:1990 Author Organization [facility] Address [address] [place] [address] Care Team Providers Name Role Phone Brianne Doss MD Primary Care Provider [phone] Reason for Visit Reason Comments Follow-up Diabetes Mellitus I Encounter Details Date Type Department Care Team Description 06/29/2020 Office Visit [facility] Jennifer Dotson MD Uncontrolled type 1 diabetes mellitus wi th hyperglycemia (Primary Dx); Endocrinology- [address] [facility] Hypogly emia; [facility] Primary hypothyroidism [address] [place] [address], [address] [address] [place], [place] [phone] [id number] Allergies No Known Allergiesdocumented as of this encounter (statuses as of 06/29/2020) Medications Medication Sig Dispensed Refills Start Date End Date Status flash glucose 1 Kit every 6 Kit 2 03/23/2020 Act blake sensor (FREESTYLE 14 NICOLE 2 SENSOR) (fourteen) KitIndications: days. Uncontrolled type 1 diabetes mellitus with hyperglycemia, Hypoglycemia insulin degludec inject 18 18 mL 1 03/23/2020 Ac tive (TRESIBA FLEXTOUCH Units under U-100) 100 unit/mL the skin (3 mL) daily. InPnIndications: Uncontrolled type 1 diabetes mellitus with hyperglycemia insulin aspart inject 4-10 9 mL 3 03/23/2020 Ac tive U-100 100 unit/mL Units under (3 mL) the skin 3 injectionIndication (three) s: Uncontrolled times daily type 1 diabetes before mellitus with meals. hyperglycemia flash glucose 1 Each 1 Each 0 03/31/2020 Activ e scanning reader daily. ([employer] NICOLE 2 READER) Misc levothyroxine 25 Take 1 90 tablet 3 06/29/2020 Ac tive mcg tablet by tabletIndications: mouth every Primary morning. hypothyroidism LEVOTHYROXINE 25 TAKE 1 90 tablet 1 11/15/2019 Di scontinued mcg TABLET BY 1 (Reorder) tabletIndications: MOUTH ONCE Primary DAILY IN THE hypothyroidism MORNING documented as of this encounter (statuses as of 06/29/2020) Active Problems Problem Noted Date Diabetic ketoacidosis 12/26/2013 Type I diabetes mellitus 12/26/2013 documented as of this encounter (statuses as of 06/29/2020) Social History Tobacco Use Types Packs/Day Years Used Date Never Smoker Smokeless Tobacco: Never Used Alcohol Use Drinks/Week oz/Week Comments No Sex Assigned at Date Recorded Not on file COVID-19 Exposure Response Date Recorded In the last month, have you been in contact with No / Unsure 06/29/2020 2:08 PM TRACTOR TRAILER MECHANIC someone who was confirmed or suspected to have Coronavirus / COVID-19? documented as of this encounter Last Filed Vital Signs Vital Sign Reading Time Taken Comments Blood Pressure 117/79 06/29/2020 2:20 PM TRACTOR TRAILER MECHANIC Pulse 75 06/29/2020 2:20 PM TRACTOR TRAILER MECHANIC Temperature - - Respiratory Rate 18 06/29/2020 2:20 PM TRACTOR TRAILER MECHANIC Oxygen Saturation 100% 06/29/2020 2:20 PM TRACTOR TRAILER MECHANIC Inhaled Oxygen Concentration - - Weight 66.9 kg (147 lb 6.4 oz) 06/29/2020 2:20 PM TRACTOR TRAILER MECHANIC Height 160 cm (5' 3") 06/29/2020 2:20 PM TRACTOR TRAILER MECHANIC Body Mass Index 26.11 06/29/2020 2:20 PM TRACTOR TRAILER MECHANIC documented in this encounter Patient Instructions Patient InstructionsJennifer Dotson MD - 06/29/2020 1:00 PM CSTContinue Tresiba 18 units every morning Continue Novolog 1 unit for every 7 gram carbohydrates Plus to take additional dose when sugar >150 before meal Blood glucose 151 - 200 give 1 units. Blood glucose 201 -250 give 2 units. Blood glucose 251 -300 give 3 units. Blood glucose greater than 300 give 4 units Avoid bedtime Novolog bolus. Only bolus 2 units if glucose >300 at bedtime TOR TRAILER MECHANIC documented in this encounter Progress Notes Jennifer Dotson MD - 06/29/2020 1:00 PM CST CC follow up for type 1 DM and hypothyroid HPI Patient is a 29 year old /White female who is here today for Diabetes Mellitus Type 1: Patient's diabetes is complicated by atherogenic diet and hypothyroidism. DM was diagnosed at age of 14 YEAR-OLD. Hx of DKA with last admission 2014. Initial visit in 12/2018:Her last diabetic care visit was in 2009. Patient states she has no doctor office visit in past 9 years due to lack of insurance. Pt has been buying Novolin N and R From [email or web address] and self adjusting insulin dose. SARAI was in 03/2020 with A1c at 7.8. She was advised to reduce Tresiba to 18 units daily d/t frequenthypoglycemia Patient reports glucose has been doing well for a while but trending up in past 1-2 months with eating holiday food Patienthas [place] [employer] nicole CGM since 12/2018. Patient brought CGM today CGM reviewed (06/15/20/-06/29/20) sensor AVG BG 174 CV 38.5% %time CGM [id number]% Scan9/per day Glucose stat high44% in Target range53% low3% Interpretation: The patient is having Hypoglycemia early am and post breakfast; she has hyperglycemia post dinner Patient is semicompliant with medication Tresiba 18 units every morning NovologNovolog 1 unit for every 7 gram carbohydrates Plus to take additional dose when sugar >150 before meal Blood glucose 151 - 200 give 1 units. Blood glucose 201 -250 give 2 units. Blood glucose 251 -300 give 3 units. Blood glucose greater than 300 give 4 units. He skipped dose of insulin at times in recent holiday Patient isless compliant with diet and exercise in recent holiday -more carbs intake lately Hypothyroid: She was on Levothyroxine 125mcg daily in past. Has not been taking medication for past 9 years due to above reason. However, TFTs In 01/2019 was at low normal range. . Resumed LT4 25mcg daily in 03/2019 She reports fatigue improved. TFTs in 03/2020 was at target DIABETIC HEALTH MAINTENANCE Last Ophthalmology visit was03/2019 Patient on DUNCAN/ARB therapy - No Patient on ASA therapy - No. Patient on Statin/Fibrate therapy - No. Patient received Flu shot this season - No. Patient instructed about daily feet exams, last sensation exam was 03/23/2020 Patient has received Nutrition/Diet/Diabetes Education on 01/14/2019 REVIEW OF SYSTEMS Constitutional: denies weight change, denies fatigue and hair loss Eyes: denies blurry vision, denies diplopia and denies pain. Neck: denies pain, denies swollen glands Cardiovascular: denies chest pain , denies irregular pulse and denies palpitations. Respiratory: denies dyspnea on exertion and denies shortness of breath. Gastrointestinal: denies abdominal pain, denies constipation and denies diarrhea. Genitourinary: denies burning and denies dysuria. Musculoskeletal: denies back pain, denies muscle pain and denies weakness. Skin: denies dry skin and denies hair changes. Neuro: denies numbness , denies tingling and denies tremor. Psych: negative. Endocrine: +Hypoglycemia improved denies goiter, denies hair loss, denies intolerance to cold, denies intolerance to heat, denies polydipsia, denies polyphagia and denies polyuria. PHYSICAL EXAM BP 117/79 (BP Location: Left arm, Patient Position: Sitting, BP CUFF SIZE: Adult Medium) | Pulse 75 | Resp 18 | Ht 5' 3" (1.6 m) | Wt 147 lb 6.4 oz (66.9 kg) | LMP 06/27/2020 (Exact Date) | SpO2 100% | BMI 26.11 kg/m General: alert, oriented times three, no apparent distress, appearing age appropriate. Skin: skin color and turgor are normal Neck: no acanthosis nigricans Thyroid: normal size and consistency to palaption Lungs: good diaphragmatic excursion, lungs clear to auscultation bilaterally. Heart: regular rate and rhythm, no murmurs, gallops or rubs. Neuro: unremarkable without focal findings. Extremities/Musculoskeletal: no cyanosis, no edema . ASSESSMENT/PLAN Uncontrolled type 1 diabetes mellitus with hyperglycemia Status: worsened with recent non following diet instruction -A1C (target=6-7%):8.5 (01/02)--> 8.4(05/05)--> 7.8(04/05)--> 9.0(07/07) -reviewed CGM download as in HPI -complication: none -diet: less compliant -exercise: active reviewed results CREATININE Date Value 03/24/2020 0.57 mg/dL 12/28/2013 0.35 MG/DL (L) Hepatic Function Panel ALBUMIN Date Value 03/24/2020 4.5 g/dL 12/26/2013 3.5 G/DL T PROTEIN Date Value 03/24/2020 7.2 g/dL 12/26/2013 5.9 G/DL (L) TOTAL BILI Date Value 03/24/2020 0.6 mg/dL 12/26/2013 0.4 MG/DL BILI UNCON Date Value 05/10/2019 0.5 mg/dL 12/26/2013 0.1 MG/DL BILI CONJ Date Value 05/10/2019 0.0 mg/dL 12/26/2013 0.0 MG/DL ALT(SGPT) (U/L) Date Value 01/15/2019 15 12/26/2013 20 ALTv (U/L) Date Value 03/24/2020 17 AST(SGOT) (U/L) Date Value 03/24/2020 22 12/26/2013 12 (L) ALK PHOS (U/L) Date Value 03/24/2020 79 12/26/2013 53 Ref. Range 01/15/2019 08:33 CREAT U Latest Units: mg/dL 40.1 MICROAL/CR Latest Ref Range: 0-3,500 ug/mmol creatinine 1,973 MICROALB U Latest Ref Range: 0 - 45 ug/mL 7 Plan -reinterated to continue CGM nicole 2 -urged compliance with diet/exercise - MICROALBUMIN URINE - SPOT SAMPLE; Future - POCT HEMOGLOBIN A1C TEST Patient Instructions Continue Tresiba 18 units every morning Continue Novolog 1 unit for every 7 gram carbohydrates Plus to take additional dose when sugar >150 before meal Blood glucose 151 - 200 give 1 units. Blood glucose 201 -250 give 2 units. Blood glucose 251 -300 give 3 units. Blood glucose greater than 300 give 4 units Avoid bedtime Novolog bolus. Only bolus 2 units if glucose >300 at bedtime 2. Hypoglycemia Status: improved but still with few in early AM , likely 2/2 bedtime bolus Plan continue CGM, adjust bedtime Novolog bolus as above 3. Primary hypothyroidism Status; controlled , TFTs was normal in 03/2020 Reviewed results TSH Date Value 03/24/2020 1.64 mIU/L 12/25/2013 1.20 uIU/mL FREE T4 Date Value 03/24/2020 1.26 ng/dL: 05/17/2005 0.70 NG/DL (L) Plan Continue - levothyroxine 25 mcg tablet; Take 1 tablet by mouth every morning. Dispense: 90 tablet; Refill: 3 documented in this encounter Plan of Treatment Date Type Specialty Care Team Description 10/14/2020 Office Visit Internal Medicine Brianne Doss MD [address] [facility] [address] [place], [place] [address] [phone] 11/09/2020 Office Visit Endocrinology Diabetes & Christiano Dotson MD Metabolism [address] [place], [place] [address] Name Type Priority Associated Diagnoses Order S chedule MICROALBUMIN URINE - SPOT LAB Routine Uncontrolled ty pe 1 Expected: SAMPLE diabetes mellitus with 06/29, Expires: hyperglycemia 06/29/2021 Health Maintenance Due Date Last Done Comments DTaP,Tdap,and Td Vaccines 2010 (1 - Tdap) PAP SMEAR 2012 URINE MICROALBUMIN 01/16/2020 01/15/2019, 03/14/2010 EYE EXAM 03/26/2020 03/26/2019, 03/26/2019 HgA1C 09/21/2020 03/23/2020, 04/28/2019, 01/14/2019, Additional history exists Depression Screening 03/23/2021 03/23/2020 FOOT EXAM 03/23/2021 03/23/2020, 03/23/2020, 01/14/2019, Additional history exists CREATININE (SERUM) 03/24/2021 03/24/2020, 05/10/2019, 01/15/2019, Additional history exists LDL-C 03/24/2021 03/24/2020, 01/15/2019, 03/24/2010 INFLUENZA VACCINE Completed 03/15/2020 PNEUMOCOCCAL 0-64 YEARS Aged Out No longe r eligible COMBINED SERIES based on patient 's age to complete this topic VARICELLA VACCINES Discontinued documented as of this encounter Procedures Procedure Name Priority Date/Time Associated Diagnosis Comme nts POCT HEMOGLOBIN A1C Routine 06/29/2020 3:47 Uncontrolled type 1 Results for this TEST PM TRACTOR TRAILER MECHANIC diabetes mellitus with proce dure are in hyperglycemia the results section. documented in this encounter Results POCT HEMOGLOBIN A1C TEST (06/29/2020 3:47 PM TRACTOR TRAILER MECHANIC) Pathologist Sig nature POCT HBA1C 9.0 (A) 4 - 6 % Specimen Blood - CAPILLARY documented in this encounter Visit Diagnoses Diagnosis Uncontrolled type 1 diabetes mellitus wi th hyperglycemia - Primary Hypoglycemia Hypoglycemia, unspecified Primary hypothyroidism Unspecified hypothyroidism documented in this encounter Insurance Payer Benefit Plan Subscriber ID Effective Dates Phone Address Type / Group [id number] 2018-Mindy [phone] [address] PPO/POS [place] t 7 [id number] [place] [address] documented as of this encounter
--- OUTSIDE RECORDS SUMMARY | 2020-07-10 09:11 | XMS REPORT | Continuity of Care Document ---
:1990 Author Organization [facility] t Address [address] [place] [place] [address] Care Team Providers Name Role Phone Mauri FRANKLIN Attending Clinician Doctor Unassigned, Name Attending Clinician Unavailable Problems This patient has no known problems. Allergies, Adverse Reactions, Alerts This patient has no known allergies or adverse reactions. Medications This patient has no known medications. Procedures This patient has no known procedures. Encounters Start End Encounter Admission Attending Care Care Encounter Source Date/Time Date/Time Type Type Clinicians Facility Department ID 2020-06-29 2020-06-29 Office ANÍBAL Dotson [id number] 14:10:08 15:02:17 Visit Jennifer Meier [id number] [place] [id number] Yonatan [phone] [facility] [address] Building 2020-06-29 2020-06-29 Orders Doctor MOORE [id number] 00:00:00 00:00:00 Only UnassLELA denise [id number] [place] [facility] [id number] Results This patient has no known results.
--- OUTSIDE RECORDS SUMMARY | 2020-07-10 09:11 | XMS REPORT | Summary of Care ---
:[address] [facility] Address [address] [place] [address] Care Team Providers Name Role Phone Brianne Doss MD Primary Care Provider [phone] Reason for Visit Reason Comments Follow-up Diabetes Mellitus I Encounter Details Date Type Department Care Team Description 06/29/2020 Office Visit [facility] Jennifer Dotson MD Uncontrolled type 1 diabetes mellitus wi th hyperglycemia (Primary Dx); [facility]ocrinology- [facility] Hypogly emia; [facility] Primary hypothyroidism [address] [place] [address], [address] [address] [place], [place] [phone] Allergies No Known Allergiesdocumented as of [...] 0 03/31/2020 Activ e scanning reader daily. ([employer] NICOLE 2 READER) Misc levothyroxine 25 Take [...] with No / Unsure 06/29/2020 2:08 PM GLASS WORKER someone who was confirmed or suspected to have Coronavirus / COVID-19? documented as of this encounter Last Filed Vital Signs Vital Sign Reading Time Taken Comments Blood Pressure 117/79 06/29/2020 2:20 PM GLASS WORKER Pulse 75 06/29/2020 2:20 PM GLASS WORKER Temperature - - Respiratory Rate 18 06/29/2020 2:20 PM GLASS WORKER Oxygen Saturation 100% 06/29/2020 2:20 PM GLASS WORKER Inhaled Oxygen Concentration - - Weight 66.9 kg (147 lb 6.4 oz) 06/29/2020 2:20 PM GLASS WORKER Height 160 cm (5' 3") 06/29/2020 2:20 PM GLASS WORKER Body Mass Index 26.11 06/29/2020 2:20 PM GLASS WORKER documented in this encounter Patient Instructions Patient [...] 2 units if glucose >300 at bedtime S WORKER documented in this encounter Progress Notes Jennifer [...] been buying Novolin N and R From [employer] and self adjusting insulin dose. SARAI was in 03/2020 with A1c at 7.8. She was advised to reduce Tresiba to 18 units daily d/t frequenthypoglycemia Patient reports glucose has been doing well for a while but trending up in past 1-2 months with eating holiday food Patienthas [employer] nicole CGM since 12/2018. Patient brought CGM today CGM reviewed (06/15/20/-06/29/20) sensor AVG BG 174 CV 38.5% %time CGM [id number]% Scan9/per day Glucose stat high44% in Target [...] Visit Internal Medicine Brianne Doss MD [address] [facility] [address] [place], [place] [address] [phone] 11/09/2020 Office Visit Endocrinology Diabetes & Christiano Dotson MD Metabolism [address] [place], [place] [id number] Name Type Priority Associated Diagnoses Order S [...] type 1 Results for this TEST PM GLASS WORKER diabetes mellitus with proce dure are in hyperglycemia the results section. documented in this encounter Results POCT HEMOGLOBIN A1C TEST (06/29/2020 3:47 PM GLASS WORKER) Pathologist Sig nature POCT HBA1C 9.0 (A) 4 - 6 % Specimen Blood - CAPILLARY documented in this encounter Visit Diagnoses Diagnosis Uncontrolled type 1 diabetes mellitus wi th hyperglycemia - Primary Hypoglycemia Hypoglycemia, unspecified Primary hypothyroidism Unspecified hypothyroidism documented in this encounter Insurance Payer Benefit Plan Subscriber ID Effective Dates Phone Address Type / Group [id number] 2018-Mindy [phone] [address] PPO/POS [place] t [id number] [place] [address] documented as of this encounter
--- OUTSIDE RECORDS SUMMARY | 2020-07-10 09:12 | XMS REPORT | Summary of Care ---
:1990 Author Organization [facility] - Health Address [address] [place] [id number] Care Team Providers Name Role Phone Brianne Doss MD Primary Care Provider [phone] Encounter Details Date Type Department Care Team Description 06/29/2020 Orders Only [facility] Doctor Unassigned, No [address] [facility] [place] [address] [address] [place] [address] Allergies No Known Allergiesdocumented as of this encounter (statuses as of 07/07/2020) Medications Medication Sig Dispensed Refills Start Date End Date Status flash glucose sensor 1 Kit every 14 6 Kit 2 03/23/2020 Active (FREESTYLE BRITNEY 2 (fourteen) days. SENSOR) KitIndications: Uncontrolled type 1 diabetes mellitus with hyperglycemia, Hypoglycemia insulin degludec inject 18 Units 18 mL 1 03/23/2020 Active (TRESIBA FLEXTOUCH under the skin U-100) 100 unit/mL (3 daily. mL) InPnIndications: Uncontrolled type 1 diabetes mellitus with hyperglycemia insulin aspart U-100 100 inject 4-10 9 mL 3 03/23/2020 Active unit/mL (3 mL) Units under the injectionIndications: skin 3 (three) Uncontrolled type 1 times daily diabetes mellitus with before meals. hyperglycemia flash glucose scanning 1 Each daily. 1 Each 0 03/31/2020 Active reader (FREESTYLE BRITNEY 2 READER) Misc levothyroxine 25 mcg Take 1 tablet by 90 tablet 3 06/29/2020 Active tabletIndications: mouth every Primary hypothyroidism morning. documented as of this encounter (statuses as of 07/07/2020) Active Problems Problem Noted Date Diabetic ketoacidosis 12/26/2013 Type I diabetes mellitus 12/26/2013 documented as of this encounter (statuses as of 07/07/2020) Social History Tobacco Use Types Packs/Day Years Used Date Never Smoker Smokeless Tobacco: Never Used Alcohol Use Drinks/Week oz/Week Comments No Sex Assigned at Date Recorded Not on file COVID-19 Exposure Response Date Recorded In the last month, have you been in contact with No / Unsure 06/29/2020 2:08 PM PROTECTION MGR someone who was confirmed or suspected to have Coronavirus / COVID-19? documented as of this encounter Last Filed Vital Signs Not on filedocumented in this encounter Plan of Treatment Date Type Specialty Care Team Description 08/17/2020 Office Visit Obstetrics & Gynecology Martha Silvestre PA-C [address] [place] [address] [address] [place], [place] [phone] 08/17/2020 Office Visit Ophthalmology Jarocho Aguirre MD [address] [place] [address] 77 550 10/14/2020 Office Visit Internal Medicine Brianne Doss MD [address] [place] [address] [address] [place], [place] [address] 11/09/2020 Office Visit Endocrinology Diabetes & Christiano Dotson MD Metabolism [address] [place] [address] [phone] Health Maintenance Due Date Last Done Comments DTaP,Tdap,and Td Vaccines 2010 (1 - Tdap) PAP SMEAR 2012 URINE MICROALBUMIN 01/16/2020 01/15/2019, 03/14/2010 EYE EXAM 03/26/2020 03/26/2019, 03/26/2019 HgA1C 12/27/2020 06/29/2020, 03/23/2020, 04/28/2019, Additional history exists Depression Screening 03/23/2021 03/23/2020 [...] Name Priority Date/Time Associated Diagnosis Comme nts DIABETES TESTING Routine 06/29/2020 12:01 AM PROTECTION MGR REPORTS documented in this encounter Results Not on filedocumented in this encounter Insurance Payer Benefit Plan Subscriber ID Effective Dates Phone Address Type / Group BC[facility] [id number] 2018-Mindy [phone] [address] PPO/POS [place] t [id number] [place] [address] documented as of this encounter
[2020-07-10 09:37] LABS: Absolute Lymphocytes (CBC) 0.6 K/uL (0.7-4.9); Basophils % 1.6 % (0-1.3); Hematocrit 39.1 % (36.0-45.0); Lymphocytes % 3.8 % (15.3-44.8); MPV 8.8 fL (7.6-11.3); RBC Red Blood Cell Count 4.72 M/uL (3.86-4.86)
[2020-07-10] MEDS ORDERED: ONDANSETRON 4 MG/2 ML VIAL ONE (09:41)
[2020-07-10] MEDS ORDERED: NA CHLORIDE 0.9% 1,000 ML ONE ×2 (09:41→13:02)
[2020-07-10] MEDS ORDERED: PROMETHAZINE INJ 25 MG/ML AMP ONE ×2 (09:52→11:59)
[2020-07-10 10:31] LABS: Blood Morphology Comment NOT SEEN (NOT SEEN); Platelet Estimate ADEQ
[2020-07-10 10:43] LABS: BUN Blood Urea Nitrogen 21 mg/dL (7-18); Bicarbonate 26 mmol/L (21-32); Glucose Level 285 mg/dL (74-106); Potassium 3.9 mmol/L (3.5-5.1); Sodium Level 139 mmol/L (136-145)
--- NOTE | 2020-07-10 12:22 | RAD REPORT ---
EXAM DESCRIPTION: CT - Abdomen Pelvis W Contrast - 07/10/2020 12:00 pm CLINICAL HISTORY: ABD PAIN COMPARISON: CT study May 2018 TECHNIQUE: Biphasic, helical CT imaging of the abdomen and pelvis was performed following 100 ml non -ionic IV contrast. No oral contrast administered. All CT scans are performed using dose optimization technique as appropriate and may include automated exposure control or mA/KV adjustment according to patient size. FINDINGS: No suspicious findings in the lung bases. The liver, spleen, and pancreas show no suspicious findings. Cholecystectomy clips are present. No bi liary tree dilatation. Symmetric renal function is seen with no hydronephrosis or suspicious renal mass. No pyelonephritis o r acute parenchymal process. No bladder abnormalities. No adrenal abnormalities. Uterus is retroflexe d. No suspicious uterine or ovarian finding. No dilated bowel loops or bowel wall thickening. Appendix is not clearly defined. No direct or indire ct evidence for appendicitis. Fluid-filled stomach shows no wall thickening or edema. No free air, fr ee fluid or inflammatory stranding. No hernia, mass or bulky lymphadenopathy. No suspicious bony findings. IMPRESSION: Contrast enhanced CT abdomen and pelvis showing no acute or emergent finding.
--- NOTE | 2020-07-10 12:34 | EDPHYS ---
Physician Documentation [facility] Name: Georgiana Fenton Age: 29 yrs Sex: Female : 1990 Arrival Date: 07/10/2020 Time: 09:12 Bed 19 Private MD: ED Physician Andrew Viramontes HPI: 07/10 09:17 This 29 yrs old Female presents to ER via Unassigned with complaints of kb Vomiting, High Blood Sugar. 09:17 The patient presents to the emergency department with nausea, vomiting. Onset: The kb symptoms/episode began/occurred this morning, at 02:00. Possible causes: unknown. The symptoms are aggravated by nothing. The symptoms are alleviated by nothing. Associated signs and symptoms: Pertinent positives: nausea, vomiting, Pertinent negatives: abdominal pain, constipation, diarrhea, fever. Severity of symptoms: At their worst the symptoms were moderate in the emergency department the symptoms are unchanged. The patient has experienced similar episodes in the past. The patient has not recently seen a physician. Pt reports vomiting started at 0200. States BGL was in the 200s and going up. . BLACK BELT: 09:21 LMP 06/27/2020 iw Historical: - Allergies: 09:23 No Known Allergies; iw - Home Meds: 09:23 Novolin R Sub-Q before meals [Active]; Tresiba FlexTouch U-100 100 unit/mL (3 mL) iw subcutaneous inpn 18 units [Active]; - PMHx: 09:23 Diabetes - IDDM; Hypothyroidism; iw - PSHx: 09:23 Cholecystectomy; iw - Immunization history:: Adult Immunizations up to date. - Social history:: Smoking status: Patient denies any tobacco usage or history of. ROS: 09:18 Constitutional: Negative for fever, chills, and weight loss, Cardiovascular: Negative kb for chest pain, palpitations, and edema, Respiratory: Negative for shortness of breath, cough, wheezing, and pleuritic chest pain, Back: Negative for injury and pain, MS/Extremity: Negative for injury and deformity, Skin: Negative for injury, rash, and discoloration, Neuro: Negative for headache, weakness, numbness, tingling, and seizure. 09:18 Abdomen/GI: Positive for nausea and vomiting, Negative for abdominal pain, diarrhea, constipation. Exam: 11:24 Head/Face: Normocephalic, atraumatic. Chest/axilla: Normal chest wall appearance and kb motion. Nontender with no deformity. No lesions are appreciated. Cardiovascular: Regular rate and rhythm with a normal S1 and S2. No gallops, murmurs, or rubs. Normal PMI, no JVD. No pulse deficits. Respiratory: Lungs have equal breath sounds bilaterally, clear to auscultation and percussion. No rales, rhonchi or wheezes noted. No increased work of breathing, no retractions or nasal flaring. Abdomen/GI: Soft, non-tender, with normal bowel sounds. No distension or tympany. No guarding or rebound. No evidence of tenderness throughout. Skin: Warm, dry with normal turgor. Normal color with no rashes, no lesions, and no evidence of cellulitis. MS/ Extremity: Pulses equal, no cyanosis. Neurovascular intact. Full, normal range of motion. Neuro: Awake and alert, GCS 15, oriented to person, place, time, and situation. Cranial nerves II-XII grossly intact. Motor strength 5/5 in all extremities. Sensory grossly intact. Cerebellar exam normal. Normal gait. 11:24 Constitutional: The patient appears alert, awake, uncomfortable. Vital Signs: 09:21 BP 151 / 77; Pulse 103; Resp 18 S; Temp 98.2; Pulse Ox 100% on R/A; Weight 66.68 kg; iw Height 5 ft. 3 in. (160.02 cm); 11:27 BP 112 / 67; Pulse 93; Resp 17 S; Pulse Ox 99% on R/A; jd3 12:31 BP 122 / 73; Pulse 104; Resp 19 S; Pulse Ox 99% on R/A; jd3 13:28 BP 133 / 86; Pulse 104; Resp 17 S; Pulse Ox 100% on R/A; jd3 09:21 Body Mass Index 26.04 (66.68 kg, 160.02 cm) iw MDM: 09:14 Patient medically screened. kb 09:17 Data reviewed: vital signs, nurses notes. Data interpreted: Pulse oximetry: on room air kb is 100 %. Interpretation: normal. 12:32 Counseling: I had a detailed discussion with the patient and/or guardian regarding: the kb historical points, exam findings, and any diagnostic results supporting the discharge/admit diagnosis, lab results, radiology results, the need for outpatient follow up, a family practitioner, to return to the emergency department if symptoms worsen or persist or if there are any questions or concerns that arise at home. 07/10 09:17 Order name: CBC with Diff; Complete Time: 10:38 kb 07/10 09:17 Order name: Basic Metabolic Panel; Complete Time: 11:29 kb 07/10 09:17 Order name: Acetone, Serum; Complete Time: 11:29 kb 07/10 09:32 Order name: Glucose, Ancillary Testing; Complete Time: 09:33 EDMS 07/10 09:43 Order name: Manual Differential; Complete Time: 10:38 EDMS 07/10 11:11 Order name: CT Abd/Pelvis - IV Contrast Only; Complete Time: 12:24 kb 07/10 11:40 Order name: Urine Dipstick--Ancillary (enter results); Complete Time: 13:19 eb 07/10 11:40 Order name: Urine --Ancillary (enter results); Complete Time: 13:19 eb 07/10 12:17 Order name: SARS-COV-2 RT PCR; Complete Time: 12:18 EDMS 07/10 09:17 Order name: IV Start; Complete Time: 09:29 kb 07/10 09:17 Order name: Urine Dipstick-Ancillary (obtain specimen); Complete Time: 11:39 kb 07/10 09:17 Order name: EKG; Complete Time: 09:18 kb 07/10 09:17 Order name: EKG - Nurse/Tech; Complete Time: 09:32 kb Administered Medications: 09:29 Drug: Zofran (Ondansetron) 4 mg Route: IVP; Site: left wrist; iw 10:20 Follow up: Response: No adverse reaction jd3 09:29 Drug: NS 0.9% 1000 ml Route: IV; Rate: 1000 ml; Site: left wrist; iw 10:20 Follow up: Response: No adverse reaction; IV Status: Completed infusion; IV Intake: jd3 1000ml 09:41 Drug: Phenergan 12.5 mg Route: IVP; Site: left wrist; jd3 10:40 Follow up: Response: No adverse reaction jd3 11:46 Drug: Phenergan 12.5 mg Route: IVP; Site: left wrist; jd3 12:40 Follow up: Response: No adverse reaction jd3 12:24 CANCELLED (Duplicate Order): NS 0.9% 1000 ml IV at 1000 ml once kb 12:51 Drug: NS 0.9% 1000 ml Route: IV; Rate: 1000 ml; Site: left wrist; jd3 14:14 Follow up: Response: No adverse reaction; IV Status: Completed infusion; IV Intake: jd3 1000ml Point of Care Testing: Blood Glucose: 09:21 Blood Glucose: 298 mg/dL; iw Ranges: Critical Glucose Levels:Adult <50 mg/dl or >400 mg/dl <40 mg/dl or >180 mg/dl Disposition: 16:05 Co-signature as Attending Physician, Andrew Viramontes MD. rn Disposition: 07/10/20 12:33 Discharged to Home. Impression: Elevated white blood cell count, Nausea and vomiting, Hyperglycemia, unspecified. - Condition is Stable. - Discharge Instructions: Nausea and Vomiting, Adult, Cwrg-te-Lgne, Hyperglycemia, Pcom-ob-Xier. - Prescriptions for promethazine 25 mg Oral Tablet - take 1 tablet by ORAL route every 8 hours As needed; 20 tablet. - Medication Reconciliation Form, Thank You Letter, Antibiotic Education, Prescription Opioid Use, Work release form form. - Follow up: Emergency Department; When: As needed; Reason: Worsening of condition. Follow up: Private Physician; When: 2 - 3 days; Reason: Recheck today's complaints, Continuance of care, Re-evaluation by your physician. Signatures: Dispatcher [employer] [facility] Ashley Whatley, WORKDAY FINANCIALS CONSULTANT-C WORKDAY FINANCIALS CONSULTANT-Ckb Felipa Camara RN RN iw Nieto, Roman, MD MD rn Davies, Jonathon, RN RN jd3 Corrections: (The following items were deleted from the chart) 11:20 09:45 CORONAVIRUS+LAB.BRTrish ordered. [facility] 12:24 12:24 NS 0.9% 1000 ml IV at 1000 ml once ordered. kb kb 14:18 12:33 07/10/2020 12:33 Discharged to Home. Impression: Elevated white blood cell count; jd3 Nausea and vomiting; Hyperglycemia, unspecified. Condition is Stable. Forms are Medication Reconciliation Form, Thank You Letter, Antibiotic Education, Prescription Opioid Use. Follow up: Emergency Department; When: As needed; Reason: Worsening of condition. Follow up: Private Physician; When: 2 - 3 days; Reason: Recheck today's complaints, Continuance of care, Re-evaluation by your physician. kb
--- NOTE | 2020-07-10 12:34 | ER ---
Nurse's Notes [facility] Name: Georgiana Fenton Age: 29 yrs Sex: Female : 1990 Arrival Date: 07/10/2020 Time: 09:12 Bed 19 Private MD: Diagnosis: Elevated white blood cell count;Nausea and vomiting;Hyperglycemia, unspecified Presentation: 07/10 09:21 Chief complaint: Patient states: vomiting started this morning, also has some chills, iw has hx of diabetes , BS was 260 just PAN SHAKER, has hx of dka. Coronavirus screen: chills, vomiting. Client presents with at least one sign or symptom that may indicate coronavirus-19. Standard/surgical mask placed on the client. Provider contacted for isolation considerations. Ebola Screen: Patient negative for fever greater than or equal to 101.5 degrees Fahrenheit, and additional compatible Ebola Virus Disease symptoms Patient denies exposure to infectious person. Patient denies travel to an Ebola-affected area in the 21 days before illness onset. No symptoms or risks identified at this time. Initial Sepsis Screen: Does the patient meet any 2 criteria? No. Patient's initial sepsis screen is negative. Does the patient have a suspected source of infection? No. Patient's initial sepsis screen is negative. Risk Assessment: Do you want to hurt yourself or someone else? Patient reports no desire to harm self or others. Onset of symptoms was July 10, 2020. 09:21 Method Of Arrival: Ambulatory iw 09:21 Acuity: CHICHO 3 iw GENERAL MILLING SUPERINTENDENT: 09:21 LMP 06/27/2020 iw Historical: - Allergies: 09:23 No Known Allergies; iw - Home Meds: 09:23 Novolin R Sub-Q before meals [Active]; Tresiba FlexTouch U-100 100 unit/mL (3 mL) iw subcutaneous inpn 18 units [Active]; - PMHx: 09:23 Diabetes - IDDM; Hypothyroidism; iw - PSHx: 09:23 Cholecystectomy; iw - Immunization history:: Adult Immunizations up to date. - Social history:: Smoking status: Patient denies any tobacco usage or history of. Screenin:43 Abuse screen: Denies threats or abuse. Nutritional screening: No deficits noted. jd3 Tuberculosis screening: No symptoms or risk factors identified. Fall Risk Ambulatory Aid- None/Bed Rest/Nurse Assist (0 pts). Gait- Normal/Bed Rest/Wheelchair (0 pts) Mental Status- Oriented to own ability (0 pts). Total Medley Fall Scale indicates No Risk (0-24 pts). Assessment: 09:30 General: Appears in no apparent distress. uncomfortable, Behavior is calm, cooperative, jd3 appropriate for age. Pain: Complains of pain in chest Quality of pain is described as burning, pressure. Neuro: Level of Consciousness is awake, alert, obeys commands, Oriented to person, place, time, situation. Cardiovascular: Capillary refill < 3 seconds Patient's skin is warm and dry. Rhythm is regular. Respiratory: Airway is patent Respiratory effort is even, unlabored, Respiratory pattern is regular, symmetrical, Denies cough, shortness of breath. GI: Abdomen is round non-distended, Abd is soft X 4 quads Reports upper abdominal pain, nausea, vomiting. : No signs and/or symptoms were reported regarding the genitourinary system. EENT: No signs and/or symptoms were reported regarding the EENT system. Derm: Skin is intact, Skin is dry, Skin is normal, Skin temperature is warm. Musculoskeletal: Circulation, motion, and sensation intact. Range of motion: intact in all extremities. 10:30 Reassessment: Patient appears in no apparent distress at this time. No changes from jd3 previously documented assessment. Patient and/or family updated on plan of care and expected duration. Pain level reassessed. Patient is alert, oriented x 3, equal unlabored respirations, skin warm/dry/pink. 11:26 Reassessment: Patient appears in no apparent distress at this time. No changes from jd3 previously documented assessment. Patient and/or family updated on plan of care and expected duration. Pain level reassessed. Patient is alert, oriented x 3, equal unlabored respirations, skin warm/dry/pink. 12:31 Reassessment: Patient appears in no apparent distress at this time. No changes from jd3 previously documented assessment. Patient and/or family updated on plan of care and expected duration. Pain level reassessed. Patient is alert, oriented x 3, equal unlabored respirations, skin warm/dry/pink. reports some relief from nausea medication. 12:51 Reassessment: awaiting fluid bolus completion prior to discharge. jd3 13:28 Reassessment: Patient appears in no apparent distress at this time. No changes from jd3 previously documented assessment. Patient and/or family updated on plan of care and expected duration. Pain level reassessed. Patient is alert, oriented x 3, equal unlabored respirations, skin warm/dry/pink. 14:15 Reassessment: Patient appears in no apparent distress at this time. Patient and/or jd3 family updated on plan of care and expected duration. Pain level reassessed. Patient is alert, oriented x 3, equal unlabored respirations, skin warm/dry/pink. pt with even and steady gait upon discharge. Patient states feeling better. Vital Signs: 09:21 BP 151 / 77; Pulse 103; Resp 18 S; Temp 98.2; Pulse Ox 100% on R/A; Weight 66.68 kg; iw Height 5 ft. 3 in. (160.02 cm); 11:27 BP 112 / 67; Pulse 93; Resp 17 S; Pulse Ox 99% on R/A; jd3 12:31 BP 122 / 73; Pulse 104; Resp 19 S; Pulse Ox 99% on R/A; jd3 13:28 BP 133 / 86; Pulse 104; Resp 17 S; Pulse Ox 100% on R/A; jd3 09:21 Body Mass Index 26.04 (66.68 kg, 160.02 cm) iw ED Course: 09:12 Patient arrived in ED. ag5 09:13 Ashley Whatley FNP-C [facility]. kb 09:13 Andrew Viramontes MD is Attending Physician. kb 09:23 Triage completed. iw 09:31 Alfredo Santiago, RN is Primary Nurse. jd3 09:31 Initial lab(s) drawn, by me, sent to lab. Inserted saline lock: 20 gauge in left wrist, em1 using aseptic technique. Blood collected. 09:42 Arm band placed on. jd3 09:43 Patient has correct armband on for positive identification. Bed in low position. Call jd3 light in reach. Side rails up X 1. benefits specialist recruiter on. Pulse ox on. NIBP on. 11:28 Radiology exam delayed due to test not completed at this time. bq 12:00 CT Abd/Pelvis - IV Contrast Only In Process Unspecified. EDMS 14:13 No provider procedures requiring assistance completed. IV discontinued, intact, jd3 bleeding controlled, No redness/swelling at site. Pressure dressing applied. Administered Medications: 09:29 Drug: Zofran (Ondansetron) 4 mg Route: IVP; Site: left wrist; iw 10:20 Follow up: Response: No adverse reaction jd3 09:29 Drug: NS 0.9% 1000 ml Route: IV; Rate: 1000 ml; Site: left wrist; iw 10:20 Follow up: Response: No adverse reaction; IV Status: Completed infusion; IV Intake: jd3 1000ml 09:41 Drug: Phenergan 12.5 mg Route: IVP; Site: left wrist; jd3 10:40 Follow up: Response: No adverse reaction jd3 11:46 Drug: Phenergan 12.5 mg Route: IVP; Site: left wrist; jd3 12:40 Follow up: Response: No adverse reaction jd3 12:24 CANCELLED (Duplicate Order): NS 0.9% 1000 ml IV at 1000 ml once kb 12:51 Drug: NS 0.9% 1000 ml Route: IV; Rate: 1000 ml; Site: left wrist; jd3 14:14 Follow up: Response: No adverse reaction; IV Status: Completed infusion; IV Intake: jd3 1000ml Point of Care Testing: Blood Glucose: 09:21 Blood Glucose: 298 mg/dL; iw Ranges: Intake: 10:20 IV: 1000ml; Total: 1000ml. jd3 14:14 IV: 1000ml; Total: 2000ml. jd3 Outcome: 12:33 Discharge ordered by MD. kb 14:14 Discharged to home ambulatory, with family. jd3 14:14 Condition: stable 14:14 Discharge instructions given to patient, Instructed on discharge instructions, follow up and referral plans. medication usage, Demonstrated understanding of instructions, follow-up care, medications, Prescriptions given X 1. 14:18 Patient left the ED. jd3 Signatures: Dispatcher [employer] EDID sAhley Whatley FNP-C FNP-Senait Tompkins Irene, RN RN iw Medhat Hernandez em1 Alfredo Santiago RN RN jd3 Saúl Lott ag5 Corrections: (The following items were deleted from the chart) 12:32 12:31 Reassessment: Patient appears in no apparent distress at this time. No changes jd3 from previously documented assessment. Patient and/or family updated on plan of care and expected duration. Pain level reassessed. Patient is alert, oriented x 3, equal unlabored respirations, skin warm/dry/pink. jd3
[2020-07-10 13:16] LABS: Urine Blood NEGATIVE (NEG); Urine Glucose 2+ (NEG); Urine Protein 1+ (NEG); Urine pH 6.5 (5.0-7.0)
[2020-07-10 14:23] VITALS: TEMP 98.2
[2020-07-10 14:26] VITALS: BP 133/86; O2SAT 100
--- NOTE | 2020-07-11 07:32 | EKG ---
Test Date: 2020-07-10 Test Time: 09:36:03 Cabinet Maker: RENARD MEASUREMENT RESULTS: Intervals: Rate: 106 TN: 138 QRSD: 60 QT: 332 QTc: 441 [place]: P: 44 TN: 138 QRS: 66 T: 39 INTERPRETIVE STATEMENTS: Sinus tachycardia Possible Left atrial enlargement Anterior infarct, age undetermined Abnormal ECG Compared to ECG 06/25/2014 12:02:52 Myocardial infarct finding now present T-wave abnormality no longer present Possible ischemia no longer present Electronically Signed On 07-11-20 07:30:09 FUR TRAPPER by Jimbo Bustamante
== END 2020-07-10 14:18 | disposition home or self-care (01) ==
LOC: ER 09:09
DX: E11.65 Type 2 diabetes mellitus with hyperglycemia (principal); D72.829 Elevated white blood cell count, unspecified; Z20.822 Contact with and (suspected) exposure to COVID-19; E03.9 Hypothyroidism, unspecified; Z79.4 Long term (current) use of insulin
CPT/HCPCS: 96361; 93005 ×2; 85025; 80048; 36415; 82010; 81025; 82947; 81003; 74177; 96375; 96374; 99284; U0003; Q9967; J2550 ×2; J7030 ×2; J2405

== ENCOUNTER 2021-06-17 16:49 | Emergency (ER) | payer BC ==
--- OUTSIDE RECORDS SUMMARY | 2021-06-17 17:00 | XMS REPORT | Continuity of Care Document ---
:1990 Author Organization [facility] t Address [address] [place] [address] Care Team Providers Name Role Phone Misty FRANKLIN, Jody Primary Care Physician JOEL Attending Clinician Unavailable MAURI Attending Clinician Unavailable Mauri FRANKLIN Attending Clinician Doctor Unassigned, Name Attending Clinician Unavailable Jody JAY Attending Clinician Unavailable Carmen XIAO Attending Clinician Unavailable Joel LOPEZ Attending Clinician Myles LOPEZ Attending Clinician Igor FRANKLIN Attending Clinician IGOR Attending Clinician Unavailable Carmen De La Cruz Attending Clinician [facility] Attending Clinician Unavailable Jody Jay MD Attending Clinician Taylor MOE Attending Clinician 2, Lab Attending Clinician Unavailable TAYLOR Attending Clinician Unavailable Jody DOSS Attending Clinician Unavailable Clinic, Gastroenterology Attending Clinician [phone] Reynaldo MOE Attending Clinician Jody Doss MD Attending Clinician Eddie Castaneda DO Attending Clinician ALEX Attending Clinician Unavailable Alex FRANKLIN Attending Clinician Sarah Sosa Attending Clinician Shavon FRANKLIN Attending Clinician REYNALDO Attending Clinician Unavailable Jennifer ETIENNE M Attending Clinician Kevin MOE Attending Clinician Sera FRANKLIN Attending Clinician Provider, Urgent Care Attending Clinician Unavailable Oralia MOE Attending Clinician LEATHA RUIZ Attending Clinician Unavailable 1, Lab Attending Clinician Unavailable Sera FRANKLIN Admitting Clinician Payers Payer Name Policy Type Policy Number Effective Date Expiration Date S cathryn [employer] [place] [id number] 2018 00:00:00 Problems Condition Condition Condition Status Onset Resolution Last Treating Co mments Source Name Details Category Date Date Treatment Clinician Date Acquired Acquired Disease Active Unive rs hypothyroi hypothyroi 6- it y of dism dism 00:00: [address] Branch Atypical Atypical Disease Active Unive rs rash, nape rash, nape 6-28 it y of of neck, of neck, 00:00: [place] psoriasis psoriasis 00 Medi marlon vs eczema vs eczema Bran ch Ovarian Ovarian Disease Active Univers cyst cyst -28 ity of 00:00: [place] [facility] Branch GERD GERD Disease Active Univers (gastroeso (gastroeso 6- it y of phageal phageal 00:00: [place] reflux reflux 00 Medical disease) disease) Branch Migraines Migraines Disease Active Uni vers 6-28 ity of 00:00: [place] [facility] Branch DKA DKA Disease Active Univers (diabetic (diabetic 1-26 ity of ketoacidos ketoacidos [place] es[place] 00 Medical Branch Intractabl Intractabl Disease Active U nivers e nausea e nausea 1-25 ity of and and 00:00: [place] vomiting vomiting 00 Medica l Branch Diabetic Diabetic Disease Active Unive rs ketoacidos ketoacidos - it y of is is 00:00: [place] 00 Medical Branch Type I Type I Disease Active Univers diabetes diabetes 12-26 ity of mellitus mellitus 00:00: [place] 00 Medical Branch Allergies, Adverse Reactions, Alerts Allergy Allergy Status Severity Reaction(s) Onset Inactive Treating Comm ents Source Name Type Date Date Clinician NO KNOWN Drug Active Univers ALLERGIE Class ity of S [place] [facility] Social History Social Habit Start Date Stop Date Quantity Comments Source Exposure to Not sure [place] of SARS-CoV-2 [place] [facility] (event) Branch History SDOH University o f Alcohol Frequency [place] [facility] History SDKS University o f Alcohol Std [place] [facility] Drinks Branch History [facility] University o f Alcohol Binge [place] [facility] al Branch Alcohol intake 2021-02-22 2021-02-22 Current University of 00:00:00 00:00:00 non-drinker of [facility] alcohol Branch (finding) Tobacco use and 2021-01-02 2021-01-02 Never used Universit y of exposure 00:00:00 00:00:00 [facility] Branch Alcohol Comment 2020-07-27 2020-07-27 1-2x/month; last Uni versity of 00:00:00 00:00:00 drink- 07/23/2020 [place] [facility] ical Branch History [facility] Food 2020-07-12 2020-07-12 1 Univers ity of Worry 00:00:00 00:00:00 [place] [facility] History SDKS Food 2020-07-12 2020-07-12 1 Univers ity of Scarcity 00:00:00 00:00:00 [place] [facility] History SDOH 2020-07-12 2020-07-12 2 University o f Transport Med 00:00:00 00:00:00 [place] [facility] al [facility] History SDOH 2020-07-12 2020-07-12 2 University o f Transport Non-Med 00:00:00 00:00:00 [facility] edical Branch Sex [birth year] At [birth year] Universit y of 00:00:00 00:00:00 [facility] Smoking Status Start Date Stop Date Source Never smoker [facility] Branch Medications Ordered Filled Start Stop Current Ordering Indication Dosage Frequency Signature Comments Components Source Medication Medication Date Date Medication? Clinician (SIG) Name Name insulin Yes [id number] 4U inject Uni vers lispro 9-08 4-10 Units ity of (HUMALOG 00:00: under the [employer] KWIKPEN 00 skin 3 Medical INSULIN) (three) Branch 100 unit/mL times pen daily injector before meals. insulin Yes [id number] 24U inject 24 Univers degludec 9-08 Units ity of (TRESIBA 00:[place] FLE[place] 00 skin Medical U-100) 100 daily. Branch unit/mL (3 mL) InPn levothyroxi Yes [id number] 25ug Take 1 Univers ne 25 mcg 9-08 tablet by ity o f tablet 00:00: mouth [place] 00 every Medical morning. Branch insulin Yes [id number] 4U inject Uni vers lispro 9-08 4-10 Units ity of (HUMALOG 00:00: under the [employer] KWIKPEN 00 skin 3 Medical INSULIN) (three) Branch 100 unit/mL times pen daily injector before meals. insulin Yes [id number] 24U inject 24 Univers degludec 9-08 Units ity of (TRESIBA 00:00: under the [employer] FLEXTOUCH 00 skin Medical U-100) 100 daily. Branch unit/mL (3 mL) InPn levothyroxi Yes [id number] 25ug Take 1 Univers ne 25 mcg 9-08 tablet by ity o f tablet 00:00: mouth [place] 00 every Medical morning. Branch insulin Yes [id number] 4U inject Uni vers lispro 9-08 4-10 Units ity of (HUMALOG 00:00: under the [employer] KWIKPEN 00 skin 3 Medical INSULIN) (three) Branch 100 unit/mL times pen daily injector before meals. insulin Yes [id number] 24U inject 24 Univers degludec 9-08 Units ity of (TRESIBA 00:[place] FLEXT[place] 00 skin Medical U-100) 100 daily. Branch unit/mL (3 mL) InPn levothyroxi Yes [id number] 25ug Take 1 Univers ne 25 mcg 9-08 tablet by ity o f tablet 00:00: mouth [place] 00 every Medical morning. Branch pantoprazol Yes [id number] 40mg Take 1 Univers e 40 mg EC 7-07 tablet by ity of tablet 00:00: mouth [place] 00 daily. 30 Medical minutes Branch before meal pantoprazol Yes [id number] 40mg Take 1 Univers e 40 mg EC 7-07 tablet by ity of tablet 00:00: mouth [place] 00 daily. 30 Medical minutes Branch before meal pantoprazol Yes [id number] 40mg Take 1 Univers e 40 mg EC 7-07 tablet by ity of tablet 00:00: mouth [place] 00 daily. 30 Medical minutes Branch before meal pantoprazol Yes [id number] 40mg Take 1 Univers e 40 mg EC 7-07 tablet by ity of tablet 00:00: mouth [place] 00 daily. 30 Medical minutes Branch before meal pantoprazol Yes [id number] 40mg Take 1 Univers e 40 mg EC 7-07 tablet by ity of tablet 00:00: mouth [place] 00 daily. 30 Medical minutes Branch before meal pantoprazol Yes [id number] 40mg Take 1 Univers e 40 mg EC 7-07 tablet by ity of tablet 00:00: mouth [place] 00 daily. 30 Medical minutes Branch before meal calcipotrie Yes [id number] 1{pump} Apply 1 Univers ne-betameth 6-28 Pump to ity o f asone 00:00: area(s) [place] 0.005-0.064 00 daily. Medica l % Foam Branch calcipotrie Yes [id number] 1{pump} Apply 1 Univers ne-betameth 6-28 Pump to ity o f asone 00:00: area(s) [place] 0.005-0.064 00 daily. Medica l % Foam Branch calcipotrie 0 Yes [id number] 1{pump} Apply 1 Univers ne-betameth 6-28 Pump to ity o f asone 00:00: area(s) [place] 0.005-0.064 00 daily. Medica l % Foam Branch calcipotrie Yes [id number] 1{pump} Apply 1 Univers ne-betameth 6-28 Pump to ity o f asone 00:00: area(s) [place] 0.005-0.064 00 daily. Medica l % Foam Branch calcipotrie 2020-0 Yes [id number] 1{pump} Apply 1 Univers ne-betameth 6-28 Pump to ity o f asone 00:00: area(s) [place] 0.005-0.064 00 daily. Medica l % Foam Branch calcipotrie 2020-0 Yes [id number] 1{pump} Apply 1 Univers ne-betameth 6-28 Pump to ity o f asone 00:00: area(s) [place] 0.005-0.064 00 daily. Medica l % Foam Branch calcipotrie 2020-0 Yes [id number] 1{pump} Apply 1 Univers ne-betameth 6-28 Pump to ity o f asone 00:00: area(s) [place] 0.005-0.064 00 daily. Medica l % Foam Branch calcipotrie 2020-0 Yes [id number] 1{pump} Apply 1 Univers ne-betameth 6-28 Pump to ity o f asone 00:00: area(s) [place] 0.005-0.064 00 daily. Medica l % Foam Branch calcipotrie 2020-0 Yes [id number] 1{pump} Apply 1 Univers ne-betameth 6-28 Pump to ity o f asone 00:00: area(s) [place] 0.005-0.064 00 daily. Medica l % Foam Branch calcipotrie 2020-0 Yes [id number] 1{pump} Apply 1 Univers ne-betameth 6-28 Pump to ity o f asone 00:00: area(s) [place] 0.005-0.064 00 daily. Medica l % Foam Branch calcipotrie 1-0 Yes [id number] 1{pump} Apply 1 Univers ne-betameth 6-28 Pump to ity o f asone 00:00: area(s) [place] 0.005-0.064 00 daily. Medica l % Foam Branch calcipotrie 1-0 Yes [id number] 1{pump} Apply 1 Univers ne-betameth 6-28 Pump to ity o f asone 00:00: area(s) [place] 0.005-0.064 00 daily. Medica l % Foam Branch insulin Yes [id number] 4U inject Uni vers aspart 6-08 4-10 Units ity of U-100 100 00:00: under the [place] unit/mL (3 00 skin 3 Medical mL) (three) Branch injection times daily before meals. flash Yes [id number] 1{each} Apply 1 U nivers glucose 6-08 Each to ity of sensor 00:00: skin every [place] (FREESTYLE 00 14 Medical BRITNEY 2 (fourteen) Branch SENSOR) Kit days. Dx E10.65 insulin Yes [id number] 22U inject 22 Univers degludec 6-08 Units ity of (TRESIBA 00:00: [place] FLEXTOU[place] 00 skin Medical U-100) 100 daily. Branch unit/mL (3 mL) InPn insulin Yes [id number] 4U inject Uni vers aspart 6-08 4-10 Units ity of U-100 100 00:00: under the [place] unit/mL (3 00 skin 3 Medical mL) (three) Branch injection times daily before meals. flash Yes [id number] 1{each} Apply 1 U nivers glucose 6-08 Each to ity of sensor 00:00: skin every (FREESTYLE 00 14 Medical BRITNEY 2 (fourteen) Branch SENSOR) Kit days. Dx E10.65 insulin Yes [id number] 22U inject 22 Univers degludec 6-08 Units ity of (TRESIBA 00:00: [place] FLEXTOU[place] 00 skin Medical U-100) 100 daily. Branch unit/mL (3 mL) InPn insulin Yes [id number] 4U inject Uni vers aspart 6-08 4-10 Units ity of U-100 100 00:00: under the [place] unit/mL (3 00 skin 3 Medical mL) (three) Branch injection times daily before meals. flash Yes [id number] 1{each} Apply 1 U nivers glucose 6-08 Each to ity of sensor 00:00: skin every [place] (FREESTYLE 00 14 Medical BRITNEY 2 (fourteen) Branch SENSOR) Kit days. Dx E10.65 insulin Yes [id number] 22U inject 22 Univers degludec 6-08 Units ity of (TRESIBA 00:00: [place] FLEXTOU[place] 00 skin Medical U-100) 100 daily. Branch unit/mL (3 mL) InPn insulin Yes [id number] 4U inject Uni vers aspart 6-08 4-10 Units ity of U-100 100 00:00: under the [place] unit/mL (3 00 skin 3 Medical mL) (three) Branch injection times daily before meals. flash Yes [id number] 1{each} Apply 1 U nivers glucose 6-08 Each to ity of sensor 00:00: skin every (FREESTYLE 00 14 Medical BRITNEY 2 (fourteen) Branch SENSOR) Kit days. Dx E10.65 insulin Yes [id number] 22U inject 22 Univers degludec 6-08 Units ity of (TRESIBA 00:00: [place] FLEXTOU[place] 00 skin Medical U-100) 100 daily. Branch unit/mL (3 mL) InPn insulin Yes [id number] 4U inject Uni vers aspart 6-08 4-10 Units ity of U-100 100 00:00: under the [place] unit/mL (3 00 skin 3 Medical mL) (three) Branch injection times daily before meals. flash Yes [id number] 1{each} Apply 1 U nivers glucose 6-08 Each to ity of sensor 00:00: skin every (FREESTYLE 00 14 Medical BRITNEY 2 (fourteen) Branch SENSOR) Kit days. Dx E10.65 insulin Yes [id number] 22U inject 22 Univers degludec 6-08 Units ity of (TRESIBA 00:00: [place] FLEXTOUCH 00 skin Medical U-100) 100 daily. Branch unit/mL (3 mL) InPn insulin Yes [id number] 4U inject Uni vers aspart 6-08 4-10 Units ity of U-100 100 00:00: under the [place] unit/mL (3 00 skin 3 Medical mL) (three) Branch injection times daily before meals. flash Yes [id number] 1{each} Apply 1 U nivers glucose 6-08 Each to ity of sensor 00:00: skin every [place] (FREESTYLE 00 14 Medical BRITNEY 2 (fourteen) Branch SENSOR) Kit days. Dx E10.65 insulin 0 Yes [id number] 22U inject 22 Univers degludec 6-08 Units ity of (TRESIBA 00:00: [place] FLEXTOUCH 00 skin Medical U-100) 100 daily. Branch unit/mL (3 mL) InPn insulin Yes [id number] 4U inject Uni vers aspart 6-08 4-10 Units ity of U-100 100 00:00: under the [place] unit/mL (3 00 skin 3 Medical mL) (three) Branch injection times daily before meals. flash Yes [id number] 1{each} Apply 1 U nivers glucose 6-08 Each to ity of sensor 00:00: skin every (FREESTYLE 00 14 Medical BRITNEY 2 (fourteen) Branch SENSOR) Kit days. Dx E10.65 insulin Yes [id number] 22U inject 22 Univers degludec 6-08 Units ity of (TRESIBA 00:00: [place] FLEXTOUCH 00 skin Medical U-100) 100 daily. Branch unit/mL (3 mL) InPn insulin Yes [id number] 4U inject Uni vers aspart 6-08 4-10 Units ity of U-100 100 00:00: under the [place] unit/mL (3 00 skin 3 Medical mL) (three) Branch injection times daily before meals. flash Yes [id number] 1{each} Apply 1 U nivers glucose 6-08 Each to ity of sensor 00:00: skin every [place] (FREESTYLE 00 14 Medical BRITNEY 2 (fourteen) Branch SENSOR) Kit days. Dx E10.65 insulin Yes [id number] 22U inject 22 Univers degludec 6-08 Units ity of (TRESIBA 00:00: [place] FLEXTOUCH 00 skin Medical U-100) 100 daily. Branch unit/mL (3 mL) InPn insulin Yes [id number] 4U inject Uni vers aspart 6-08 4-10 Units ity of U-100 100 00:00: under the [place] unit/mL (3 00 skin 3 Medical mL) (three) Branch injection times daily before meals. flash Yes [id number] 1{each} Apply 1 U nivers glucose 6-08 Each to ity of sensor 00:00: skin every (FREESTYLE 00 14 Medical BRITNEY 2 (fourteen) Branch SENSOR) Kit days. Dx E10.65 insulin Yes [id number] 22U inject 22 Univers degludec 6-08 Units ity of (TRESIBA 00:00: [place] FLEXTOU[place] 00 skin Medical U-100) 100 daily. Branch unit/mL (3 mL) InPn insulin Yes [id number] 4U inject Uni vers aspart 6-08 4-10 Units ity of U-100 100 00:00: under the [place] unit/mL (3 00 skin 3 Medical mL) (three) Branch injection times daily before meals. flash Yes [id number] 1{each} Apply 1 U nivers glucose 6-08 Each to ity of sensor 00:00: skin every [place] (FREESTYLE 00 14 Medical BRITNEY 2 (fourteen) Branch SENSOR) Kit days. Dx E10.65 insulin Yes [id number] 22U inject 22 Univers degludec 6-08 Units ity of (TRESIBA 00:00: [place] FLEXTOUCH 00 skin Medical U-100) 100 daily. Branch unit/mL (3 mL) InPn insulin Yes [id number] 4U inject Uni vers aspart 6-08 4-10 Units ity of U-100 100 00:00: under the [place] unit/mL (3 00 skin 3 Medical mL) (three) Branch injection times daily before meals. flash Yes [id number] 1{each} Apply 1 U nivers glucose 6-08 Each to ity of sensor 00:00: skin every [place] (FREESTYLE 00 14 Medical BRITNEY 2 (fourteen) Branch SENSOR) Kit days. Dx E10.65 insulin Yes [id number] 22U inject 22 Univers degludec 6-08 Units ity of (TRESIBA 00:00: [place] FLEXTOUCH 00 skin Medical U-100) 100 daily. Branch unit/mL (3 mL) InPn insulin Yes [id number] 4U inject Uni vers aspart 6-08 4-10 Units ity of U-100 100 00:00: under the [place] unit/mL (3 00 skin 3 Medical mL) (three) Branch injection times daily before meals. flash Yes [id number] 1{each} Apply 1 U nivers glucose 6-08 Each to ity of sensor 00:00: skin every (FREESTYLE 00 14 Medical BRITNEY 2 (fourteen) Branch SENSOR) Kit days. Dx E10.65 insulin Yes [id number] 22U inject 22 Univers degludec 6-08 Units ity of (TRESIBA 00:00: [place] FLEXTOUCH 00 skin Medical U-100) 100 daily. Branch unit/mL (3 mL) InPn insulin Yes [id number] 4U inject Uni vers aspart 6-08 4-10 Units ity of U-100 100 00:00: under the [place] unit/mL (3 00 skin 3 Medical mL) (three) Branch injection times daily before meals. flash Yes [id number] 1{each} Apply 1 U nivers glucose 6-08 Each to ity of sensor 00:00: skin every (FREESTYLE 00 14 Medical BRITNEY 2 (fourteen) Branch SENSOR) Kit days. Dx E10.65 insulin Yes [id number] 22U inject 22 Univers degludec 6-08 Units ity of (TRESIBA 00:00: [place] FLEXTOU[place] 00 skin Medical U-100) 100 daily. Branch unit/mL (3 mL) InPn flash Yes [id number] 1{each} Apply 1 U nivers glucose 6-08 Each to ity of sensor 00:00: skin every (FREESTYLE 00 14 Medical BRITNEY 2 (fourteen) Branch SENSOR) Kit days. Dx E10.65 flash Yes [id number] 1{each} Apply 1 U nivers glucose 6-08 Each to ity of sensor 00:00: skin every (FREESTYLE 00 14 Medical BRITNEY 2 (fourteen) Branch SENSOR) Kit days. Dx E10.65 flash Yes [id number] 1{each} Apply 1 U nivers glucose 6-08 Each to ity of sensor 00:00: skin every [place] (FREESTYLE 00 14 Medical BRITNEY 2 (fourteen) Branch SENSOR) Kit days. Dx E10.65 insulin 2020- No [id number] 4U inject Un diallo aspart 11-22-08 4-10 Units ity of U-100 100 00:00: 00:00 under the [place] unit/mL (3 00 :00 skin 3 Medical mL) (three) Branch injection times daily before meals. insulin 2020- No [id number] 22U inject 22 Univers degludec 11-22-08 Units ity of (TRESIBA 00:00: 00:00 under the [place] FLEXTOUCH 00 :00 skin Medical U-100) 100 daily. Branch unit/mL (3 mL) In FREESTYLE Yes [id number] USE 1 Un diallo BRITNEY 2 6-07 SENSOR ity of SENSOR Kit 00:00: EVERY 14 [place] 00 DAYS Medical Branch FREESTYLE Yes [id number] USE 1 Un diallo BRITNEY 2 6-07 SENSOR ity of SENSOR Kit 00:00: EVERY 14 [place] 00 DAYS Medical Branch FREESTYLE 0 2020- No [id number] USE 1 U nivers BRITNEY 2 6-07 06-08 SENSOR ity of SENSOR Kit 00:00: 00:00 EVERY 14 [place] 00 :00 DAYS Medical Branch FREESTYLE 2020-0 2020- No [id number] USE 1 U nivers BRITNEY 2 6-07 06-08 SENSOR ity of SENSOR Kit 00:00: 00:00 EVERY 14 [place] 00 :00 DAYS Medical Branch LEVOTHYROXI Yes TAKE 1 Univ ers NE 25 mcg 5-17 TABLET BY ity o f tablet 00:00: MOUTH ONCE 00 DAILY IN Medical THE Branch MORNING LEVOTHYROXI Yes TAKE 1 Univ ers NE 25 mcg 5-17 TABLET BY ity o f tablet 00:00: MOUTH ONCE 00 DAILY IN Medical THE Branch MORNING LEVOTHYROXI Yes TAKE 1 Univ ers NE 25 mcg 5-17 TABLET BY ity o f tablet 00:00: MOUTH ONCE 00 DAILY IN Medical THE Branch MORNING LEVOTHYROXI 2021-0 Yes TAKE 1 Univ ers NE 25 mcg 5-17 TABLET BY ity o f tablet 00:00: MOUTH ONCE [place] 00 DAILY IN [facility] MORNING LEVOTHYROXI Yes TAKE 1 Univ ers NE 25 mcg 5-17 TABLET BY ity o f tablet 00:00: MOUTH ONCE [place] 00 DAILY IN [facility] MORNING LEVOTHYROXI 0 Yes TAKE 1 Univ ers NE 25 mcg 5-17 TABLET BY ity o f tablet 00:00: MOUTH ONCE [place] 00 DAILY IN [facility] MORNING LEVOTHYROXI Yes TAKE 1 Univ ers NE 25 mcg 5-17 TABLET BY ity o f tablet 00:00: MOUTH ONCE [place] 00 DAILY IN [facility] MORNING LEVOTHYROXI Yes TAKE 1 Univ ers NE 25 mcg 5-17 TABLET BY ity o f tablet 00:00: MOUTH ONCE [place] 00 DAILY IN [facility] MORNING LEVOTHYROXI Yes TAKE 1 Univ ers NE 25 mcg 5-17 TABLET BY ity o f tablet 00:00: MOUTH ONCE [place] 00 DAILY IN [facility] MORNING LEVOTHYROXI Yes TAKE 1 Univ ers NE 25 mcg 5-17 TABLET BY ity o f tablet 00:00: MOUTH ONCE [place] 00 DAILY IN [facility] MORNING LEVOTHYROXI Yes TAKE 1 Univ ers NE 25 mcg 5-17 TABLET BY ity o f tablet 00:00: MOUTH ONCE [place] 00 DAILY IN [facility] MORNING LEVOTHYROXI Yes TAKE 1 Univ ers NE 25 mcg 5-17 TABLET BY ity o f tablet 00:00: MOUTH ONCE [place] 00 DAILY IN [facility] MORNING LEVOTHYROXI Yes TAKE 1 Univ ers NE 25 mcg 5-17 TABLET BY ity o f tablet 00:00: MOUTH ONCE [place] 00 DAILY IN [facility] MORNING LEVOTHYROXI Yes TAKE 1 Univ ers NE 25 mcg 5-17 TABLET BY ity o f tablet 00:00: MOUTH ONCE [place] 00 DAILY IN [facility] MORNING LEVOTHYROXI Yes TAKE 1 Univ ers NE 25 mcg 5-17 TABLET BY ity o f tablet 00:00: MOUTH ONCE [place] 00 DAILY IN [facility] MORNING LEVOTHYROXI Yes TAKE 1 Univ ers NE 25 mcg 5-17 TABLET BY ity o f tablet 00:00: MOUTH ONCE [place] 00 DAILY IN [facility] MORNING LEVOTHYROXI Yes TAKE 1 Univ ers NE 25 mcg 5-17 TABLET BY ity o f tablet 00:00: MOUTH ONCE [place] 00 DAILY IN [facility] MORNING LEVOTHYROXI Yes TAKE 1 Univ ers NE 25 mcg 5-17 TABLET BY ity o f tablet 00:00: MOUTH ONCE [place] 00 DAILY IN [facility] MORNING LEVOTHYROXI 2020- No TAKE 1 Uni vers NE 25 mcg 5-17 09-08 TABLET BY ity of tablet 00:00: 00:00 MOUTH ONCE [place] 00 :[place] DAILY IN [facility] MORNING pantoprazol Yes [id number] 40mg Take 1 Univers e 40 mg EC 4-01 tablet by ity of tablet 00:00: mouth [place] 00 daily. [facility] pantoprazol Yes [id number] 40mg Take 1 Univers e 40 mg EC 4-01 tablet by ity of tablet 00:00: mouth [place] 00 daily. [facility] pantoprazol Yes [id number] 40mg Take 1 Univers e 40 mg EC 4-01 tablet by ity of tablet 00:00: mouth [place] 00 daily. [facility] pantoprazol Yes [id number] 40mg Take 1 Univers e 40 mg EC 4-01 tablet by ity of tablet 00:00: mouth [place] 00 daily. [facility] pantoprazol Yes [id number] 40mg Take 1 Univers e 40 mg EC 4-01 tablet by ity of tablet 00:00: mouth [place] 00 daily. [facility] Branch pantoprazol Yes [id number] 40mg Take 1 Univers e 40 mg EC 4-01 tablet by ity of tablet 00:00: mouth [place] 00 daily. [facility] pantoprazol Yes [id number] 40mg Take 1 Univers e 40 mg EC 4-01 tablet by ity of tablet 00:00: mouth [place] 00 daily. [facility] pantoprazol Yes [id number] 40mg Take 1 Univers e 40 mg EC 4-01 tablet by ity of tablet 00:00: mouth [place] 00 daily. [facility] pantoprazol Yes [id number] 40mg Take 1 Univers e 40 mg EC 4-01 tablet by ity of tablet 00:00: mouth [place] 00 daily. Medical Branch pantoprazol Yes [id number] 40mg Take 1 Univers e 40 mg EC - tablet by ity of tablet 00:00: mouth [place] 00 daily. Medical Branch pantoprazol 2020- No [id number] 40mg Take 1 Univers e 40 mg EC -18 tablet by ity of tablet 00:00: 00:00 mouth [place] 00 :00 daily. Medical Branch pantoprazol 2020- No [id number] 40mg Take 1 Univers e 40 mg EC 09-1518 tablet by ity of tablet 00:00: 00:00 mouth [place] 00 :00 daily. Medical Branch norgestimat Yes [id number] 1{tbl} Take 1 Univers e-ethinyl 3-12 tablet by ity o f estradioL 00:00: mouth [place] 0.25-35 00 daily. Medical mg-mcg per Branch tablet norgestimat 2020- Yes [id number] 1{tbl} Take 1 Univers e-ethinyl 3-12 tablet by ity o f estradioL 00:00: mouth [place] 0.25-35 00 daily. Medical mg-mcg per Branch tablet norgestimat Yes [id number] 1{tbl} Take 1 Univers e-ethinyl 3-12 tablet by ity o f estradioL 00:00: mouth [place] 0.25-35 00 daily. Medical mg-mcg per Branch tablet norgestimat 2020- Yes [id number] 1{tbl} Take 1 Univers e-ethinyl 3-12 tablet by ity o f estradioL 00:00: mouth [place] 0.25-35 00 daily. Medical mg-mcg per Branch tablet norgestimat 2020- Yes [id number] 1{tbl} Take 1 Univers e-ethinyl 3-12 tablet by ity o f estradioL 00:00: mouth [place] 0.25-35 00 daily. Medical mg-mcg per Branch tablet norgestimat 2020- Yes [id number] 1{tbl} Take 1 Univers e-ethinyl 3-12 tablet by ity o f estradioL 00:00: mouth [place] 0.25-35 00 daily. Medical mg-mcg per Branch tablet norgestimat Yes [id number] 1{tbl} Take 1 Univers e-ethinyl 3-12 tablet by ity o f estradioL 00:00: mouth [place] 0.25-35 00 daily. Medical mg-mcg per Branch tablet norgestimat 2020- Yes [id number] 1{tbl} Take 1 Univers e-ethinyl 3-12 tablet by ity o f estradioL 00:00: mouth [place] 0.25-35 00 daily. Medical mg-mcg per Branch tablet norgestimat 2020-0 Yes [id number] 1{tbl} Take 1 Univers e-ethinyl 3-12 tablet by ity o f estradioL 00:00: mouth [place] 0.25-35 00 daily. Medical mg-mcg per Branch tablet norgestimat 2020- Yes [id number] 1{tbl} Take 1 Univers e-ethinyl 3-12 tablet by ity o f estradioL 00:00: mouth [place] 0.25-35 00 daily. Medical mg-mcg per Branch tablet norgestimat 2020- Yes [id number] 1{tbl} Take 1 Univers e-ethinyl 3-12 tablet by ity o f estradioL 00:00: mouth [place] 0.25-35 00 daily. Medical mg-mcg per Branch tablet norgestimat 2020-0 Yes [id number] 1{tbl} Take 1 Univers e-ethinyl 3-12 tablet by ity o f estradioL 00:00: mouth [place] 0.25-35 00 daily. Medical mg-mcg per Branch tablet norgestimat 2020-0 Yes [id number] 1{tbl} Take 1 Univers e-ethinyl 3-12 tablet by ity o f estradioL 00:00: mouth [place] 0.25-35 00 daily. Medical mg-mcg per Branch tablet norgestimat 2020-0 Yes [id number] 1{tbl} Take 1 Univers e-ethinyl 3-12 tablet by ity o f estradioL 00:00: mouth [place] 0.25-35 00 daily. Medical mg-mcg per Branch tablet norgestimat 2020-0 Yes [id number] 1{tbl} Take 1 [facility] e-ethinyl 3-12 tablet by ity o f estradioL 00:00: mouth [place] 0.25-35 00 daily. Medical mg-mcg per Branch tablet norgestimat 2020-0 Yes [id number] 1{tbl} Take 1 Univers e-ethinyl 3-12 tablet by ity o f estradioL 00:00: mouth [place] 0.25-35 00 daily. Medical mg-mcg per Branch tablet norgestimat 2020-0 Yes [id number] 1{tbl} Take 1 [facility] e-ethinyl 3-12 tablet by ity o f estradioL 00:00: mouth [place] 0.25-35 00 daily. Medical mg-mcg per Branch tablet norgestimat 2020-0 Yes [id number] 1{tbl} Take 1 [facility] e-ethinyl 3-12 tablet by ity o f estradioL 00:00: mouth [place] 0.25-35 00 daily. Medical mg-mcg per Branch tablet norgestimat 2020-0 Yes [id number] 1{tbl} Take 1 [facility] e-ethinyl 3-12 tablet by ity o f estradioL 00:00: mouth [place] 0.25-35 00 daily. Medical mg-mcg per Branch tablet norgestimat 2020-0 Yes [id number] 1{tbl} Take 1 [facility] e-ethinyl 3-12 tablet by ity o f estradioL 00:00: mouth [place] 0.25-35 00 daily. Medical mg-mcg per Branch tablet norgestimat 2020-0 Yes [id number] 1{tbl} Take 1 [facility] e-ethinyl 3-12 tablet by ity o f estradioL 00:00: mouth [place] 0.25-35 00 daily. Medical mg-mcg per Branch tablet norgestimat 2020-0 Yes [id number] 1{tbl} Take 1 [facility] e-ethinyl 3-12 tablet by ity o f estradioL 00:00: mouth [place] 0.25-35 00 daily. Medical mg-mcg per Branch tablet norgestimat 2020-0 Yes [id number] 1{tbl} Take 1 [facility] e-ethinyl 3-12 tablet by ity o f estradioL 00:00: mouth [place] 0.25-35 00 daily. Medical mg-mcg per Branch tablet norgestimat 2020-0 Yes [id number] 1{tbl} Take 1 [facility] e-ethinyl 3-12 tablet by ity o f estradioL 00:00: mouth [place] 0.25-35 00 daily. Medical mg-mcg per Branch tablet norgestimat Yes [id number] 1{tbl} Take 1 [facility] e-ethinyl 3-12 tablet by ity o f estradioL 00:00: mouth [place] 0.25-35 00 daily. Medical mg-mcg per Branch tablet norgestimat Yes [id number] 1{tbl} Take 1 [facility] e-ethinyl 3-12 tablet by ity o f estradioL 00:00: mouth [place] 0.25-35 00 daily. Medical mg-mcg per Branch tablet norgestimat Yes [id number] 1{tbl} Take 1 [facility] e-ethinyl 3-12 tablet by ity o f estradioL 00:00: mouth [place] 0.25-35 00 daily. Medical mg-mcg per Branch tablet norgestimat Yes [id number] 1{tbl} Take 1 [facility] e-ethinyl 3-12 tablet by ity o f estradioL 00:00: mouth [place] 0.25-35 00 daily. Medical mg-mcg per Branch tablet norgestimat Yes [id number] 1{tbl} Take 1 [facility] e-ethinyl 3-12 tablet by ity o f estradioL 00:00: mouth [place] 0.25-35 00 daily. Medical mg-mcg per Branch tablet norgestimat Yes [id number] 1{tbl} Take 1 [facility] e-ethinyl 3-12 tablet by ity o f estradioL 00:00: mouth [place] 0.25-35 00 daily. Medical mg-mcg per Branch tablet ketorolac 2020- No 30mg 30 mg, Unive rs (TORADOL) 08-15 Slow IV ity of injection 02:45: 01:54 Push, [place] 30 mg 00 :00 ONCE, 1 Medical dose, [place] [facility] 08/14/20 at 2044, JASON
[facility] member approving Restricted medication : Idalia CABA FENTanyl PF 2020- No 50ug 50 mcg, Un diallo (SUBLIMAZE 08-14 Slow IV ity o f (PF)) 23:30: 23:12 Push, [place] injection 00 :00 ONCE, 1 Medical 50 mcg dose, [place] [facility] 08/14/20 at 1730, STAT iohexol 2020- No 100mL 100 mL, Unive rs (OMNIPAQUE 08-14 Intravenou it y of 350 23:15: 23:00 s, ONCE, 1 [place] BULK-100 00 :00 dose, [facility] Med[facility] l mL) 08/14/20 at Branch injection 1715, 100 mL Routine NaCl 0.9% 2020- No 1000mL at 999 Uni vers (NS) bolus 08-14 03-01 mL/hr, ity of infusion 23:00: 01:04 1,000 mL, [place] 1,000 mL 00 :00 IV Medical Infusion, Branch ONCE, 1 dose, [place] 08/14/20 at 1700, STAT ondansetron 2020- No 4mg 4 mg, Slow Univers (ZOFRAN 08-14 IV Push, ity of (PF)) 23:00: 21:55 ONCE, 1 [place] injection 4 00 :00 dose, [place] Med ical mg 08/14/20 at Branch 1700, JASON ibuprofen 2020- Yes [id number] 600mg Take 1 U nivers 600 mg 2-28 tablet by ity of tablet 00:00: mouth [place] 00 every 6 Medical (six) Branch hours as needed for Pain (scale 4-6). ibuprofen 0 Yes [id number] 600mg Take 1 U nivers 600 mg 2-28 tablet by ity of tablet 00:00: mouth [place] 00 every 6 Medical (six) Branch hours as needed for Pain (scale 4-6). ibuprofen 2020-0 Yes [id number] 600mg Take 1 U nivers 600 mg 2-28 tablet by ity of tablet 00:00: mouth [place] 00 every 6 Medical (six) Branch hours as needed for Pain (scale 4-6). ibuprofen 2020-0 Yes [id number] 600mg Take 1 U nivers 600 mg 2-28 tablet by ity of tablet 00:00: mouth [place] 00 every 6 Medical (six) Branch hours as needed for Pain (scale 4-6). ibuprofen 2020-0 Yes [id number] 600mg Take 1 U nivers 600 mg 2-28 tablet by ity of tablet 00:00: mouth [place] 00 every 6 Medical (six) Branch hours as needed for Pain (scale 4-6). ibuprofen 2021-0 Yes [id number] 600mg Take 1 U nivers 600 mg 2-28 tablet by ity of tablet 00:00: mouth [place] 00 every 6 Medical (six) Branch hours as needed for Pain (scale 4-6). ibuprofen 2021-0 Yes [id number] 600mg Take 1 U nivers 600 mg 2-28 tablet by ity of tablet 00:00: mouth [place] 00 every 6 Medical (six) Branch hours as needed for Pain (scale 4-6). ibuprofen 2021-0 Yes [id number] 600mg Take 1 U nivers 600 mg 2-28 tablet by ity of tablet 00:00: mouth [place] 00 every 6 Medical (six) Branch hours as needed for Pain (scale 4-6). ibuprofen 2021-0 Yes [id number] 600mg Take 1 U nivers 600 mg 2-28 tablet by ity of tablet 00:00: mouth [place] 00 every 6 Medical (six) Branch hours as needed for Pain (scale 4-6). ibuprofen 2021-0 Yes [id number] 600mg Take 1 U nivers 600 mg 2-28 tablet by ity of tablet 00:00: mouth [place] 00 every 6 Medical (six) Branch hours as needed for Pain (scale 4-6). ibuprofen 2021-0 Yes [id number] 600mg Take 1 U nivers 600 mg 2-28 tablet by ity of tablet 00:00: mouth [place] 00 every 6 Medical (six) Branch hours as needed for Pain (scale 4-6). ibuprofen 2021-0 Yes [id number] 600mg Take 1 U nivers 600 mg 2-28 tablet by ity of tablet 00:00: mouth [place] 00 every 6 Medical (six) Branch hours as needed for Pain (scale 4-6). ibuprofen 2021-0 Yes [id number] 600mg Take 1 U nivers 600 mg 2-28 tablet by ity of tablet 00:00: mouth [place] 00 every 6 Medical (six) Branch hours as needed for Pain (scale 4-6). ibuprofen 2021-0 Yes [id number] 600mg Take 1 U nivers 600 mg 2-28 tablet by ity of tablet 00:00: mouth [place] 00 every 6 Medical (six) Branch hours as needed for Pain (scale 4-6). ibuprofen 2021-0 Yes [id number] 600mg Take 1 U nivers 600 mg 2-28 tablet by ity of tablet 00:00: mouth [place] 00 every 6 Medical (six) Branch hours as needed for Pain (scale 4-6). ibuprofen 2021-0 Yes [id number] 600mg Take 1 U nivers 600 mg 2-28 tablet by ity of tablet 00:00: mouth [place] 00 every 6 Medical (six) Branch hours as needed for Pain (scale 4-6). ibuprofen 2021-0 Yes [id number] 600mg Take 1 U nivers 600 mg 2-28 tablet by ity of tablet 00:00: mouth [place] 00 every 6 Medical (six) Branch hours as needed for Pain (scale 4-6). ibuprofen 2021-0 Yes [id number] 600mg Take 1 U nivers 600 mg 2-28 tablet by ity of tablet 00:00: mouth [place] 00 every 6 Medical (six) Branch hours as needed for Pain (scale 4-6). ondansetron 2021-0 Yes [id number] 4mg Take 1 Univers (ZOFRAN 2-28 tablet by ity of ODT) 4 mg 00:00: mouth [place] disintegrat 00 every 8 Medic al ing tablet (eight) Branch hours as needed for Nausea and Vomiting (N/V). ibuprofen 2020-0 Yes [id number] 600mg Take 1 U nivers 600 mg 2-28 tablet by ity of tablet 00:00: mouth [place] 00 every 6 Medical (six) Branch hours as needed for Pain (scale 4-6). ondansetron 2021-0 Yes [id number] 4mg Take 1 Univers (ZOFRAN 2-28 tablet by ity of ODT) 4 mg 00:00: mouth [place] disintegrat 00 every 8 Medic al ing tablet (eight) Branch hours as needed for Nausea and Vomiting (N/V). ibuprofen 2021-0 Yes [id number] 600mg Take 1 U nivers 600 mg 2-28 tablet by ity of tablet 00:00: mouth [place] 00 every 6 Medical (six) Branch hours as needed for Pain (scale 4-6). ondansetron 2021-0 Yes [id number] 4mg Take 1 Univers (ZOFRAN 2-28 tablet by ity of ODT) 4 mg 00:00: mouth [place] disintegrat 00 every 8 Medic al ing tablet (eight) Branch hours as needed for Nausea and Vomiting (N/V). ibuprofen 2020-0 Yes [id number] 600mg Take 1 U nivers 600 mg 2-28 tablet by ity of tablet 00:00: mouth [place] 00 every 6 Medical (six) Branch hours as needed for Pain (scale 4-6). ondansetron 2020-0 Yes [id number] 4mg Take 1 Univers (ZOFRAN 2-28 tablet by ity of ODT) 4 mg 00:00: mouth [place] disintegrat 00 every 8 Medic al ing tablet (eight) Branch hours as needed for Nausea and Vomiting (N/V). ibuprofen 2020-0 Yes [id number] 600mg Take 1 U nivers 600 mg 2-28 tablet by ity of tablet 00:00: mouth [place] 00 every 6 Medical (six) Branch hours as needed for Pain (scale 4-6). ondansetron 2020-0 Yes [id number] 4mg Take 1 Univers (ZOFRAN 2-28 tablet by ity of ODT) 4 mg 00:00: mouth [place] disintegrat 00 every 8 Medic al ing tablet (eight) Branch hours as needed for Nausea and Vomiting (N/V). ibuprofen 2020-0 Yes [id number] 600mg Take 1 U nivers 600 mg 2-28 tablet by ity of tablet 00:00: mouth [place] 00 every 6 Medical (six) Branch hours as needed for Pain (scale 4-6). ondansetron 2020-0 Yes [id number] 4mg Take 1 Univers (ZOFRAN 2-28 tablet by ity of ODT) 4 mg 00:00: mouth [place] disintegrat 00 every 8 Medic al ing tablet (eight) Branch hours as needed for Nausea and Vomiting (N/V). ibuprofen 2020-0 Yes [id number] 600mg Take 1 U nivers 600 mg 2-28 tablet by ity of tablet 00:00: mouth [place] 00 every 6 Medical (six) Branch hours as needed for Pain (scale 4-6). ondansetron 2020-0 Yes [id number] 4mg Take 1 Univers (ZOFRAN 2-28 tablet by ity of ODT) 4 mg 00:00: mouth [place] disintegrat 00 every 8 Medic al ing tablet (eight) Branch hours as needed for Nausea and Vomiting (N/V). ibuprofen 2021-0 Yes [id number] 600mg Take 1 U nivers 600 mg 2-28 tablet by ity of tablet 00:00: mouth [place] 00 every 6 Medical (six) Branch hours as needed for Pain (scale 4-6). ondansetron 2021-0 Yes [id number] 4mg Take 1 Univers (ZOFRAN 2-28 tablet by ity of ODT) 4 mg 00:00: mouth [place] disintegrat 00 every 8 Medic al ing tablet (eight) Branch hours as needed for Nausea and Vomiting (N/V). ibuprofen 2021-0 Yes [id number] 600mg Take 1 U nivers 600 mg 2-28 tablet by ity of tablet 00:00: mouth [place] 00 every 6 Medical (six) Branch hours as needed for Pain (scale 4-6). ondansetron 2021-0 Yes [id number] 4mg Take 1 Univers (ZOFRAN 2-28 tablet by ity of ODT) 4 mg 00:00: mouth [place] disintegrat 00 every 8 Medic al ing tablet (eight) Branch hours as needed for Nausea and Vomiting (N/V). ibuprofen 2021-0 Yes [id number] 600mg Take 1 U nivers 600 mg 2-28 tablet by ity of tablet 00:00: mouth [place] 00 every 6 Medical (six) Branch hours as needed for Pain (scale 4-6). ondansetron 2021-0 Yes [id number] 4mg Take 1 Univers (ZOFRAN 2-28 tablet by ity of ODT) 4 mg 00:00: mouth [place] disintegrat 00 every 8 Medic al ing tablet (eight) Branch hours as needed for Nausea and Vomiting (N/V). ibuprofen 2021-0 Yes [id number] 600mg Take 1 U nivers 600 mg 2-28 tablet by ity of tablet 00:00: mouth [place] 00 every 6 Medical (six) Branch hours as needed for Pain (scale 4-6). ondansetron 2021-0 Yes [id number] 4mg Take 1 Univers (ZOFRAN 2-28 tablet by ity of ODT) 4 mg 00:00: mouth [place] disintegrat 00 every 8 Medic al ing tablet (eight) Branch hours as needed for Nausea and Vomiting (N/V). ibuprofen 2020-0 Yes [id number] 600mg Take 1 U nivers 600 mg 2-28 tablet by ity of tablet 00:00: mouth [place] 00 every 6 Medical (six) Branch hours as needed for Pain (scale 4-6). ondansetron 202-0 Yes [id number] 4mg Take 1 Univers (ZOFRAN 2-28 tablet by ity of ODT) 4 mg 00:00: mouth [place] disintegrat 00 every 8 Medic al ing tablet (eight) Branch hours as needed for Nausea and Vomiting (N/V). ibuprofen 2020-0 Yes [id number] 600mg Take 1 U nivers 600 mg 2-28 tablet by ity of tablet 00:00: mouth [place] 00 every 6 Medical (six) Branch hours as needed for Pain (scale 4-6). ondansetron 2020-0 Yes [id number] 4mg Take 1 Univers (ZOFRAN 2-28 tablet by ity of ODT) 4 mg 00:00: mouth [place] disintegrat 00 every 8 Medic al ing tablet (eight) Branch hours as needed for Nausea and Vomiting (N/V). ibuprofen 2020-0 Yes [id number] 600mg Take 1 U nivers 600 mg 2-28 tablet by ity of tablet 00:00: mouth [place] 00 every 6 Medical (six) Branch hours as needed for Pain (scale 4-6). ondansetron 2020-0 Yes [id number] 4mg Take 1 Univers (ZOFRAN 2-28 tablet by ity of ODT) 4 mg 00:00: mouth [place] disintegrat 00 every 8 Medic al ing tablet (eight) Branch hours as needed for Nausea and Vomiting (N/V). ibuprofen 2020-0 Yes [id number] 600mg Take 1 U nivers 600 mg 2-28 tablet by ity of tablet 00:00: mouth [place] 00 every 6 Medical (six) Branch hours as needed for Pain (scale 4-6). ibuprofen 2021-0 Yes [id number] 600mg Take 1 U nivers 600 mg 2-28 tablet by ity of tablet 00:00: mouth [place] 00 every 6 Medical (six) Branch hours as needed for Pain (scale 4-6). ibuprofen 2021-0 Yes [id number] 600mg Take 1 U nivers 600 mg 2-28 tablet by ity of tablet 00:00: mouth [place] 00 every 6 Medical (six) Branch hours as needed for Pain (scale 4-6). ibuprofen 0 Yes [id number] 600mg Take 1 U nivers 600 mg 2-28 tablet by ity of tablet 00:00: mouth [place] 00 every 6 Medical (six) Branch hours as needed for Pain (scale 4-6). ibuprofen 0 Yes [id number] 600mg Take 1 U nivers 600 mg 2-28 tablet by ity of tablet 00:00: mouth [place] 00 every 6 Medical (six) Branch hours as needed for Pain (scale 4-6). ibuprofen 0 Yes [id number] 600mg Take 1 U nivers 600 mg 2-28 tablet by ity of tablet 00:00: mouth [place] 00 every 6 Medical (six) Branch hours as needed for Pain (scale 4-6). ondansetron 2021- No [id number] 4mg Take 1 Univers (ZOFRAN 2-28 04-08 tablet by ity of ODT) 4 mg 00:00: 00:00 mouth [place] disintegrat 00 :00 every 8 Medic al ing tablet (eight) Branch hours as needed for Nausea and Vomiting (N/V). ondansetron 0 1- No [id number] 4mg Take 1 Univers (ZOFRAN 2-28 04-08 tablet by ity of ODT) 4 mg 00:00: 00:00 mouth [place] disintegrat 00 :00 every 8 Medic al ing tablet (eight) Branch hours as needed for Nausea and Vomiting (N/V). insulin Yes [id number] 18U inject 18 [facility] degludec 2-16 Units ity of (TRESIBA 00:00: [place] FLEXTOU[place] 00 skin Medical U-100) 100 daily. Branch unit/mL (3 mL) InPn insulin Yes [id number] 18U inject 18 Univers degludec 2-16 Units ity of (TRESIBA 00:00: [place] FLE[place]OU[place] 00 skin Medical U-100) 100 daily. Branch unit/mL (3 mL) InPn insulin Yes [id number] 18U inject 18 Univers degludec 2-16 Units ity of (TRESIBA 00:00: [place] the [place] FLE[place] 00 skin Medical U-100) 100 daily. Branch unit/mL (3 mL) InPn insulin Yes [id number] 18U inject 18 Univers degludec 2-16 Units ity of (TRESIBA 00:00: [place] the [place] FLE[place] 00 skin Medical U-100) 100 daily. Branch unit/mL (3 mL) InPn insulin Yes [id number] 18U inject 18 [facility] degludec 2-16 Units ity of (TRESIBA 00:00: [place] FLE[place] 00 skin Medical U-100) 100 daily. Branch unit/mL (3 mL) InPn insulin Yes [id number] 18U inject 18 [facility] degludec 2-16 Units ity of (TRESIBA 00:00: [place]LE[place] 00 skin Medical U-100) 100 daily. Branch unit/mL (3 mL) InPn insulin Yes [id number] 18U inject 18 [facility] degludec 2-16 Units ity of (TRESIBA 00:00: [place]LE[place]OU[place] 00 skin Medical U-100) 100 daily. Branch unit/mL (3 mL) InPn insulin Yes [id number] 18U inject 18 Univers degludec 2-16 Units ity of (TRESIBA 00:00: [place] FLE[place]OU[place] 00 skin Medical U-100) 100 daily. Branch unit/mL (3 mL) InPn insulin Yes [id number] 18U inject 18 [facility] degludec 2-16 Units ity of (TRESIBA 00:00: [place]LE[place] 00 skin Medical U-100) 100 daily. Branch unit/mL (3 mL) InPn insulin Yes [id number] 18U inject 18 [facility] degludec 2-16 Units ity of (TRESIBA 00:00: [place]LE[place] 00 skin Medical U-100) 100 daily. Branch unit/mL (3 mL) InPn insulin Yes [id number] 18U inject 18 [facility] degludec 2-16 Units ity of (TRESIBA 00:00: [place] the [place]LE[place]OU[place] 00 skin Medical U-100) 100 daily. Branch unit/mL (3 mL) InPn insulin Yes [id number] 18U inject 18 [facility] degludec 2-16 Units ity of (TRESIBA 00:00: under the [place]LE[place] 00 skin Medical U-100) 100 daily. Branch unit/mL (3 mL) InPn insulin Yes [id number] 18U inject 18 [facility] degludec 2-16 Units ity of (TRESIBA 00:00: under the [place]LE[place] 00 skin Medical U-100) 100 daily. Branch unit/mL (3 mL) InPn insulin Yes [id number] 18U inject 18 [facility] degludec 2-16 Units ity of (TRESIBA 00:00: under the [place]LE[place] 00 skin Medical U-100) 100 daily. Branch unit/mL (3 mL) InPn insulin Yes [id number] 18U inject 18 [facility] degludec 2-16 Units ity of (TRESIBA 00:00: under the [place]LE[place]OU[place] 00 skin Medical U-100) 100 daily. Branch unit/mL (3 mL) InPn insulin Yes [id number] 18U inject 18 [facility] degludec 2-16 Units ity of (TRESIBA 00:00: [place]LE[place] 00 skin Medical U-100) 100 daily. Branch unit/mL (3 mL) InPn insulin Yes [id number] 18U inject 18 [facility] degludec 2-16 Units ity of (TRESIBA 00:00: under the [place]LE[place] 00 skin Medical U-100) 100 daily. Branch unit/mL (3 mL) InPn insulin Yes [id number] 18U inject 18 [facility] degludec 2-16 Units ity of (TRESIBA 00:00: under [place]LE[place] 00 skin Medical U-100) 100 daily. Branch unit/mL (3 mL) InPn insulin Yes [id number] 18U inject 18 [facility] degludec 2-16 Units ity of (TRESIBA 00:00: [place]LE[place] 00 skin Medical U-100) 100 daily. Branch unit/mL (3 mL) InPn insulin Yes [id number] 18U inject 18 Univers degludec 2-16 Units ity of (TRESIBA 00:00: [facility] [place] [facility] FLEXTOU[facility] 00 skin Medical U-100) 100 daily. Branch unit/mL (3 mL) InPn insulin Yes [id number] 18U inject 18 Univers degludec 2-16 Units ity of (TRESIBA 00:00: under the [facility] s FLEXTOUCH 00 skin Medical U-100) 100 daily. Branch unit/mL (3 mL) InPn insulin Yes [id number] 18U inject 18 Univers degludec 2-16 Units ity of (TRESIBA 00:00: under the [facility] FLEXTOUCH 00 skin Medical U-100) 100 daily. Branch unit/mL (3 mL) InPn insulin Yes [id number] 18U inject 18 Univers degludec 2-16 Units ity of (TRESIBA 00:00: under the [facility] FLEXTOUCH 00 skin Medical U-100) 100 daily. Branch unit/mL (3 mL) InPn insulin 2020- No [id number] 18U inject 18 Univers degludec 2-16 06-08 Units ity of (TRESIBA 00:00: 00:00 under the [place] as FLEXTOUCH 00 :00 skin Medical U-100) 100 daily. Branch unit/mL (3 mL) InPn insulin 2020- No [id number] 18U inject 18 Univers degludec 2-16 06-08 Units ity of (TRESIBA 00:00: 00:00 under the [place] FLEXTOUCH 00 :00 skin Medical U-100) 100 daily. Branch unit/mL (3 mL) InPn pantoprazol Yes [id number] 40mg Take 1 Univers e 40 mg EC 2-10 tablet by ity of tablet 00:00: mouth [place] 00 daily. Medical Branch pantoprazol Yes [id number] 40mg Take 1 Univers e 40 mg EC 2-10 tablet by ity of tablet 00:00: mouth [place] 00 daily. Medical Branch pantoprazol Yes [id number] 40mg Take 1 Univers e 40 mg EC 2-10 tablet by ity of tablet 00:00: mouth [place] 00 daily. Medical Branch pantoprazol Yes [id number] 40mg Take 1 Univers e 40 mg EC 2-10 tablet by ity of tablet 00:00: mouth [place] 00 daily. Medical Branch pantoprazol Yes [id number] 40mg Take 1 Univers e 40 mg EC 2-10 tablet by ity of tablet 00:00: mouth [place] 00 daily. Medical Branch pantoprazol Yes [id number] 40mg Take 1 Univers e 40 mg EC 2-10 tablet by ity of tablet 00:00: mouth [place] 00 daily. Medical Branch pantoprazol Yes [id number] 40mg Take 1 Univers e 40 mg EC 2-10 tablet by ity of tablet 00:00: mouth [place] 00 daily. Medical Branch pantoprazol Yes [id number] 40mg Take 1 Univers e 40 mg EC 2-10 tablet by ity of tablet 00:00: mouth [place] 00 daily. Medical Branch pantoprazol Yes [id number] 40mg Take 1 Univers e 40 mg EC 2-10 tablet by ity of tablet 00:00: mouth [place] 00 daily. Medical Branch pantoprazol Yes [id number] 40mg Take 1 Univers e 40 mg EC 2-10 tablet by ity of tablet 00:00: mouth [place] 00 daily. Medical Branch pantoprazol Yes [id number] 40mg Take 1 Univers e 40 mg EC 2-10 tablet by ity of tablet 00:00: mouth [place] 00 daily. Medical Branch pantoprazol Yes [id number] 40mg Take 1 Univers e 40 mg EC 2-10 tablet by ity of tablet 00:00: mouth [place] 00 daily. Medical Branch pantoprazol Yes [id number] 40mg Take 1 Univers e 40 mg EC 2-10 tablet by ity of tablet 00:00: mouth [place] 00 daily. Medical Branch pantoprazol Yes [id number] 40mg Take 1 Univers e 40 mg EC 2-10 tablet by ity of tablet 00:00: mouth [place] 00 daily. Medical Branch pantoprazol Yes [id number] 40mg Take 1 Univers e 40 mg EC 2-10 tablet by ity of tablet 00:00: mouth [place] 00 daily. [facility] pantoprazol Yes [id number] 40mg Take 1 Univers e 40 mg EC 2-10 tablet by ity of tablet 00:00: mouth [place] 00 daily. [facility] pantoprazol Yes [id number] 40mg Take 1 Univers e 40 mg EC 2-10 tablet by ity of tablet 00:00: mouth [place] 00 daily. [facility] pantoprazol 2020- No [id number] 40mg Take 1 Univers e 40 mg EC 2-10 - tablet by ity of tablet 00:00: 00:00 mouth [place] 00 :00 daily. [facility] magnesium 2020- No 1g 1 g, IV Univ ers sulfate in 07-14 Piggyback, it y of D5W 1 14:15: 15:24 ONCE, 1 [place] gram/100 mL 00 :00 dose, [facility] Med ical RTU IV 07/14/20 at [place] Piggyback 1 0815, 100 g mL potassium 2020- No 10meq 10 mEq, IV Univers chloride in 07-14 Piggyback, i ty of water 10 14:00: 19:36 Q1H, 4 [place] mEq/100 mL 00 :00 doses, Medical RTU 10 mEq First dose Bra nch (after last reorder) on [place] 07/14/20 at 0800, Last dose on [facility] 07/14/20 at 1100, 100 mL magnesium Yes 400mg 400 mg, Univ ers oxide 07-14 Oral, BID, ity of (MAG-OX 13:15: [place] 400[place] tablet 00 on [place] [facility] 400 mg 07/14/20 at Branch 0715, Until Discontinu ed, Routine KCL Yes 40meq 40 mEq, Univers (KLOR-CON 07-14 Oral, ity of M20) tablet 13:15: DAILY, [place] 40 mEq 00 First dose Medical on [facility] [place] 07/14/20 at 0715, Until Discontinu ed, Routine pantoprazol 2020- No [id number] 40mg Take 1 Univers e 40 mg EC 07-14 tablet by ity of tablet 00:00: 05:59 mouth [place] 00 :00 daily for Medical 30 days. Branch pantoprazol 2020- No [id number] 40mg Take 1 Univers e 40 mg EC 07-14 tablet by ity of tablet 00:00: 05:59 mouth [place] 00 :00 daily for Medical 30 days. Branch pantoprazol 2020- No [id number] 40mg Take 1 Univers e 40 mg EC 07-14 tablet by ity of tablet 00:00: 05:59 mouth [place] 00 :00 daily for Medical 30 days. Branch pantoprazol 2020- No [id number] 40mg Take 1 Univers e 40 mg EC 07-14 tablet by ity of tablet 00:00: 00:00 mouth [place] 00 :00 daily for Medical 30 days. [place] pantoprazol 2020- No [id number] 40mg Take 1 Univers e 40 mg EC 07-14 tablet by ity of tablet 00:00: 00:00 mouth [place] 00 :00 daily for Medical 30 days. [place] KCL 20 mEq 2020- No [id number] 20meq Take 1 Univers tablet 07-14 tablet by ity of 00:00: 05:59 mouth [place] 00 :00 daily for Medical 10 days. Branch KCL 20 mEq 2020- No [id number] 20meq Take 1 Univers tablet 07-14 tablet by ity of 00:00: 05:59 mouth [place] 00 :00 daily for Medical 10 days. [place] KCL 20 mEq 2020- No [id number] 20meq Take 1 Univers tablet 07-14 tablet by ity of 00:00: 05:59 mouth [place] 00 :00 daily for Medical 10 days. [place] metoclopram Yes 10mg 10 mg, Univ ers luann HCl 07-13 Slow IV ity of (REGLAN) 18:00: Push, Q6H, [place] injection 00 First dose Medi marlon 10 mg on Sat Branch 07/13/20 at 1200, Until Discontinu ed, Routine potassium 2020- No 10meq 10 mEq, IV Univers chloride in 07-13 Piggyback, i ty of water 10 17:00: 21:17 Q1H, 2 [place] mEq/100 mL 00 :00 doses, Medical RTU 10 mEq First dose Bra nch on Sat07/13/20 at 1100, Last dose on Sat07/13/20 at 1200, 100 mL enoxaparin Yes 40mg 40 mg, Unive rs (LOVENOX) 07-12 Subcutaneo ity of injection 23:00: [place], DAILY, [place] 40 mg 00 First dose Medical on [facility] 07/12/20 at 1700, Until Discontinu ed, Routine maalox:diph Yes 15mL 15 mL, Univ ers enhydrAMINE 07-12 Oral ity of :lidocaine 18:11: ([place] 2 % viscous 04 Spit Out), Me dical 1:1:1 Q6HPRN, [place] (FIRST-MOUT Starting [facility]) Sat oral 07/12/20 at suspension 1211, 15 mL Until Discontinu ed, Routine, nausea/vom iting insulin Yes 10U 10 Units, Unive rs glargine 07-12 Subcutaneo ity o f (LANTUS 15:00: [place], DAILY, [place] U-100) 00 First dose Medical injection on [place] 10 Units 07/12/20 at 0900, Until Discontinu ed maalox:diph 0 2020- No 15mL 15 mL, Uni vers enhydrAMINE 07-12 Oral, ity of :lidocaine 14:30: 14:45 ONCE, 1 [place] 2 % viscous 00 :13 dose, Sat Med ical 1:1:1 07/12/20 at [place] (FIRST-MOUT 08, [facility]) Routine oral suspension 15 mL Sliding Yes Subcutaneo Univ ers Scale 07-12 us, Q4H, ity of Insulin-Reg 14:00: First dose [place] ular + Fsbg 00 on Sat Medica l Testing 07/12/20 at Branch 0800, Until Discontinu ed, Routine pantoprazol Yes 40mg 40 mg, IV U nivers e 07-12 Piggyback, ity of (PROTONIX) 13:00: Q24H, [place] 40 mg in 00 First dose Medic al NaCl 0.9% on Tue Branch (NS) 100 mL 07/12/20 at MINI-BAG 0700, Until Discontinu ed, 100 mL NaCl 0.9% Yes 1000mL at 125 Univ ers (NS) IV 1-26 mL/hr, IV ity of infusion 10:45: [place]fusion, [place] 1,000 mL 00 CONTINUOUS Medic al , Starting Branch 07/12/20 at 0445, Until Discontinu ed, Routine glucagon Yes 1mg 1 mg, Univers (GLUCAGEN 07-12 Intramuscu ity of DIAGNOSTIC 10:28: [place], PRN, [place] KIT) 14 Starting Medical injection 1 Tue Branch mg 07/12/20 at 0428, Until Discontinu ed, JASON, Blood Glucose < or = 70 mg/dL and patient is unable to swallow or has mental changes. dextrose 50 Yes 25mL 25 mL, Univ ers % in water 07-12 Slow IV ity of (D50W) 10:28: Push, PRN, [place] injection 14 Starting Medica l 25 mL [facility] Branch 07/12/20 at 0428, Until Discontinu ed, JASON, Blood Glucose < or = 70 mg/dL and patient is unable to swallow or has mental status changes. ondansetron Yes 4mg 4 mg, Slow Univers (ZOFRAN 07-12 IV Push, ity of (PF)) 10:28: Q6HPRN, [place] injection 4 05 Starting Medi marlon mg [facility] Branch 07/12/20 at 0428, Until Discontinu ed, Routine, Nausea and Vomiting (N/V) acetaminoph Yes 650mg 650 mg, Un diallo en 07-12 Oral, ity of (TYLENOL) 10:27: Q6HPRN, [place] tablet 650 57 Starting Medic al mg [facility] Branch 07/12/20 at 0427, Until Discontinu ed, Routine, Pain (scale 1-3) proMETHazin No 12.5mg 12.5 mg, Univers e 07-12 IV ity of (PHENERGAN) 06:05: 06:45 Piggyback, [place] 12.5 mg in 00 :00 ONCE, 1 Medica l NaCl 0.9% dose, Tue Branc h (NS) 50 mL 07/12/20 at piggyback 0015, 50 mL maalox:diph 2020- No 15mL 15 mL, Uni vers enhydrAMINE 07-12 Oral, ity of :lidocaine 06:05: 06:26 ONCE, 1 [place] 2 % viscous 00 :00 dose, Tue Med ical 1:1:1 07/12/20 at [place] (FIRST-MOUT 0015, JASON HWASH BLM) oral suspension 15 mL ketorolac 2020- No 30mg 30 mg, [facility] ([facility] 07-12 Slow IV ity of injection 03:30: 02:49 Push, [place] 30 mg 00 :00 ONCE, 1 Medical dose, [facility] 07/11/20 at 2130, JASON
Fa culty member approving Restricted medication : [place] CABA famotidine No 20mg [address] mg, [facility] ers (PEPCID 07-12 Slow IV ity of (PF)) 03:30: 02:49 Push, [place] injection 00 :00 ONCE, 1 Medical 20 mg dose, [facility] 07/11/20 at 2130, JASON NaCl 0.9% No 2000mL at 999 Uni vers (NS) bolus 07-12 mL/hr, ity of infusion 03:00: 04:15 2,000 mL, [place] 2,000 mL 00 :00 IV Medical Infusion, Branch ONCE, 1 dose, [facility] 07/11/20 at 2100, STAT ondansetron 2020- No 4mg 4 mg, [facility] ers (ZOFRAN-ODT 07-12 Oral, ity of ) 01:30: 00:22 ONCE, 1 [place] disintegrat 00 :00 dose, [facility] Med ical ing tablet 07/11/20 at [facility] 4 mg 1930, Routine insulin Yes [id number] 4U inject Uni vers aspart 07-11 4-10 Units ity of U-100 100 00:00: under the [place] unit/mL (3 00 skin 3 Medical mL) (three) Branch injection times daily before meals. insulin Yes [id number] 4U inject Uni vers aspart 1-25 4-10 Units ity of U-100 100 00:00: under the [place] unit/mL (3 00 skin 3 Medical mL) (three) Branch injection times daily before meals. insulin 2020-0 Yes [id number] 4U inject Uni vers aspart 1-25 4-10 Units ity of U-100 100 00:00: under the [place] unit/mL (3 00 skin 3 Medical mL) (three) Branch injection times daily before meals. insulin 2020-0 Yes [id number] 4U inject Uni vers aspart 1-25 4-10 Units ity of U-100 100 00:00: under the [place] unit/mL (3 00 skin 3 Medical mL) (three) Branch injection times daily before meals. insulin 0 Yes [id number] 4U inject Uni vers aspart 1-25 4-10 Units ity of U-100 100 00:00: under the [place] unit/mL (3 00 skin 3 Medical mL) (three) Branch injection times daily before meals. insulin 0 Yes [id number] 4U inject Uni vers aspart 1-25 4-10 Units ity of U-100 100 00:00: under the [place] unit/mL (3 00 skin 3 Medical mL) (three) Branch injection times daily before meals. insulin 0 Yes [id number] 4U inject Uni vers aspart 1-25 4-10 Units ity of U-100 100 00:00: under the [place] unit/mL (3 00 skin 3 Medical mL) (three) Branch injection times daily before meals. insulin 0 Yes [id number] 4U inject Uni vers aspart 1-25 4-10 Units ity of U-100 100 00:00: under the [place] unit/mL (3 00 skin 3 Medical mL) (three) Branch injection times daily before meals. insulin 2020-0 Yes [id number] 4U inject Uni vers aspart 1-25 4-10 Units ity of U-100 100 00:00: under the [place] unit/mL (3 00 skin 3 Medical mL) (three) Branch injection times daily before meals. insulin 2020-0 Yes [id number] 4U inject Uni vers aspart 1-25 4-10 Units ity of U-100 100 00:00: under the [place] unit/mL (3 00 skin 3 Medical mL) (three) Branch injection times daily before meals. insulin 2020-0 Yes [id number] 4U inject Uni vers aspart 1-25 4-10 Units ity of U-100 100 00:00: under the [place] unit/mL (3 00 skin 3 Medical mL) (three) Branch injection times daily before meals. insulin 0 Yes [id number] 4U inject Uni vers aspart 1-25 4-10 Units ity of U-100 100 00:00: under the [place] unit/mL (3 00 skin 3 Medical mL) (three) Branch injection times daily before meals. insulin 2020-0 Yes [id number] 4U inject Uni vers aspart 1-25 4-10 Units ity of U-100 100 00:00: under the [place] unit/mL (3 00 skin 3 Medical mL) (three) Branch injection times daily before meals. insulin Yes [id number] 4U inject Uni vers aspart 1-25 4-10 Units ity of U-100 100 00:00: under the [place] unit/mL (3 00 skin 3 Medical mL) (three) Branch injection times daily before meals. insulin 2020-0 Yes [id number] 4U inject Uni vers aspart 1-25 4-10 Units ity of U-100 100 00:00: under the [place] unit/mL (3 00 skin 3 Medical mL) (three) Branch injection times daily before meals. insulin 2020-0 Yes [id number] 4U inject Uni vers aspart 1-25 4-10 Units ity of U-100 100 00:00: under the [place] unit/mL (3 00 skin 3 Medical mL) (three) Branch injection times daily before meals. insulin 2020-0 Yes [id number] 4U inject Uni vers aspart 1-25 4-10 Units ity of U-100 100 00:00: under the [place] unit/mL (3 00 skin 3 Medical mL) (three) Branch injection times daily before meals. insulin 2020-0 Yes [id number] 4U inject Uni vers aspart 1-25 4-10 Units ity of U-100 100 00:00: under the [place] unit/mL (3 00 skin 3 Medical mL) (three) Branch injection times daily before meals. insulin 2020-0 Yes [id number] 4U inject Uni vers aspart 1-25 4-10 Units ity of U-100 100 00:00: under the [place] unit/mL (3 00 skin 3 Medical mL) (three) Branch injection times daily before meals. insulin 2020-0 Yes [id number] 4U inject Uni vers aspart 1-25 4-10 Units ity of U-100 100 00:00: under the [place] unit/mL (3 00 skin 3 Medical mL) (three) Branch injection times daily before meals. insulin 2020-0 Yes [id number] 4U inject Uni vers aspart 1-25 4-10 Units ity of U-100 100 00:00: under the [place] unit/mL (3 00 skin 3 Medical mL) (three) Branch injection times daily before meals. insulin 2020-0 Yes [id number] 4U inject Uni vers aspart 1-25 4-10 Units ity of U-100 100 00:00: under the [place] unit/mL (3 00 skin 3 Medical mL) (three) Branch injection times daily before meals. insulin 2020-0 Yes [id number] 4U inject Uni vers aspart 1-25 4-10 Units ity of U-100 100 00:00: under the [place] unit/mL (3 00 skin 3 Medical mL) (three) Branch injection times daily before meals. insulin 2020-0 Yes [id number] 4U inject Uni vers aspart 1-25 4-10 Units ity of U-100 100 00:00: under the [place] unit/mL (3 00 skin 3 Medical mL) (three) Branch injection times daily before meals. insulin 2020-0 Yes [id number] 4U inject Uni vers aspart 1-25 4-10 Units ity of U-100 100 00:00: under the [place] unit/mL (3 00 skin 3 Medical mL) (three) Branch injection times daily before meals. insulin 2020-0 Yes [id number] 4U inject Uni vers aspart 1-25 4-10 Units ity of U-100 100 00:00: under the [place] unit/mL (3 00 skin 3 Medical mL) (three) Branch injection times daily before meals. insulin 2020-0 Yes [id number] 4U inject Uni vers aspart 1-25 4-10 Units ity of U-100 100 00:00: under the [place] unit/mL (3 00 skin 3 Medical mL) (three) Branch injection times daily before meals. insulin Yes [id number] 4U inject Uni vers aspart 1-25 4-10 Units ity of U-100 100 00:00: under the [place] unit/mL (3 00 skin 3 Medical mL) (three) Branch injection times daily before meals. insulin Yes [id number] 4U inject Uni vers aspart 1-25 4-10 Units ity of U-100 100 00:00: under the [place] unit/mL (3 00 skin 3 Medical mL) (three) Branch injection times daily before meals. insulin Yes [id number] 4U inject Uni vers aspart 1-25 4-10 Units ity of U-100 100 00:00: under the [place] unit/mL (3 00 skin 3 Medical mL) (three) Branch injection times daily before meals. insulin Yes [id number] 4U inject Uni vers aspart 1-25 4-10 Units ity of U-100 100 00:00: under the [place] unit/mL (3 00 skin 3 Medical mL) (three) Branch injection times daily before meals. insulin 2020- No [id number] 4U inject Un diallo aspart 1-25 06-08 4-10 Units ity of U-100 100 00:00: 00:00 under the [place] unit/mL (3 00 :00 skin 3 Medical mL) (three) Branch injection times daily before meals. insulin 2020- No [id number] 4U inject Un diallo aspart 1-25 06-08 4-10 Units ity of U-100 100 00:00: 00:00 under the [place] unit/mL (3 00 :00 skin 3 Medical mL) (three) Branch injection times daily before meals. levothyroxi 2020-0 Yes [id number] 25ug Take 1 Univers ne 25 mcg 1-13 tablet by ity o f tablet 00:00: mouth [place] 00 every Medical morning. Branch levothyroxi 2020-0 Yes [id number] 25ug Take 1 Univers ne 25 mcg 1-13 tablet by ity o f tablet 00:00: mouth 00 every Medical morning. Branch levothyroxi 2020-0 Yes [id number] 25ug Take 1 Univers ne 25 mcg 1-13 tablet by ity o f tablet 00:00: mouth [place] 00 every Medical morning. Branch levothyroxi 2020-0 Yes [id number] 25ug Take 1 Univers ne 25 mcg 1-13 tablet by ity o f tablet 00:00: mouth [place] 00 every Medical morning. Branch levothyroxi 2020-0 Yes [id number] 25ug Take 1 Univers ne 25 mcg 1-13 tablet by ity o f tablet 00:00: mouth [place] 00 every Medical morning. Branch levothyroxi 2020-0 Yes Univer s ne 25 mcg 1-13 ity of tablet 00:00: [place] 00 Medical Branch levothyroxi 2020-0 Yes Univer s ne 25 mcg 1-13 ity of tablet 00:00: [place] 00 Medical Branch levothyroxi 2020-0 Yes Univer s ne 25 mcg 1-13 ity of tablet 00:00: [place] 00 Medical Branch levothyroxi 2020-0 Yes Univer s ne 25 mcg 1-13 ity of tablet 00:00: [place] 00 Medical Branch levothyroxi 2020-0 Yes Univer s ne 25 mcg 1-13 ity of tablet 00:00: [place] 00 Medical Branch levothyroxi 2020-0 Yes Univer s ne 25 mcg 1-13 ity of tablet 00:00: [place] 00 Medical Branch levothyroxi 2020-0 Yes Univer s ne 25 mcg 1-13 ity of tablet 00:00: [place] 00 Medical Branch levothyroxi 1-0 Yes Univer s ne 25 mcg 1-13 ity of tablet 00:00: [place] 00 Medical Branch levothyroxi 1-0 Yes Univer s ne 25 mcg 1-13 ity of tablet 00:00: [place] 00 Medical Branch levothyroxi 1-0 Yes Univer s ne 25 mcg 1-13 ity of tablet 00:00: [place] 00 Medical Branch levothyroxi 2020-0 Yes Univer s ne 25 mcg 1-13 ity of tablet 00:00: [place] 00 Medical Branch levothyroxi 2020-0 Yes Univer s ne 25 mcg 1-13 ity of tablet 00:00: [place] 00 Medical Branch levothyroxi 2020-0 Yes Univer s ne 25 mcg 1-13 ity of tablet 00:00: [place] 00 Medical Branch levothyroxi 0 Yes Univer s ne 25 mcg 1-13 ity of tablet 00:00: [place] 00 Medical Branch levothyroxi 0 Yes Univer s ne 25 mcg 1-13 ity of tablet 00:00: [place] 00 Medical Branch levothyroxi 2020- No Unive rs ne 25 mcg 1-13 05-17 ity of tablet 00:00: 00:00 [place] 00 :00 Medical Branch levothyroxi 2020- No [id number] 25ug Take 1 Univers ne 25 mcg 1-13 - tablet by ity of tablet 00:00: 00:00 [facility] [place] 00 :00 every Medical morning. Branch flash 2020-1 Yes 1{each} 1 Each Univers glucose 0-15 daily. ity of scanning 00:00: [place] reader 00 Medical (FREESTYLE Branch BRITNEY 2 READER) Misc flash 2020-1 Yes 1{each} 1 Each Univers glucose 0-15 daily. ity of scanning 00:00: [place] reader 00 Medical (FREESTYLE Branch BRITNEY 2 READER) Misc flash 2020-1 Yes 1{each} 1 Each Univers glucose 0-15 daily. ity of scanning 00:00: [place] reader 00 Medical (FREESTYLE Branch BRITNEY 2 READER) Misc flash 2020-1 Yes 1{each} 1 Each Univers glucose 0-15 daily. ity of scanning 00:00: [place] reader 00 Medical (FREESTYLE Branch BRITNEY 2 READER) Misc flash 2020-1 Yes 1{each} 1 Each Univers glucose 0-15 daily. ity of scanning 00:00: [place] reader 00 Medical (FREESTYLE Branch BRITNEY 2 READER) Misc flash 2020-1 Yes 1{each} 1 Each Univers glucose 0-15 daily. ity of scanning 00:00: [place] reader 00 Medical (FREESTYLE Branch BRITNEY 2 READER) Misc flash 2020-1 Yes 1{each} 1 Each Univers glucose 0-15 daily. ity of scanning 00:00: [place] reader 00 Medical (FREESTYLE Branch BRITNEY 2 READER) Misc flash 2020-1 Yes 1{each} 1 Each Univers glucose 0-15 daily. ity of scanning 00:00: [place] reader 00 Medical (FREESTYLE Branch BRITNEY 2 READER) Misc flash 2020-1 Yes 1{each} 1 Each Univers glucose 0-15 daily. ity of scanning 00:00: [place] reader 00 Medical (FREESTYLE Branch BRITNEY 2 READER) Misc flash 2020-1 Yes 1{each} 1 Each Univers glucose 0-15 daily. ity of scanning 00:00: [place] reader 00 Medical (FREESTYLE Branch BRITNEY 2 READER) Misc flash 2020-1 Yes 1{each} 1 Each Univers glucose 0-15 daily. ity of scanning 00:00: [place] reader 00 Medical (FREESTYLE Branch BRITNEY 2 READER) Misc flash 2020-1 Yes 1{each} 1 Each Univers glucose 0-15 daily. ity of scanning 00:00: [place] reader 00 Medical (FREESTYLE Branch BRITNEY 2 READER) Misc flash 2020-1 Yes 1{each} 1 Each Univers glucose 0-15 daily. ity of scanning 00:00: [place] reader 00 Medical (FREESTYLE Branch BRITNEY 2 READER) Misc flash 2020-1 Yes 1{each} 1 Each Univers glucose 0-15 daily. ity of scanning 00:00: [place] reader 00 Medical (FREESTYLE Branch BRITNEY 2 READER) Misc flash 2020-1 Yes 1{each} 1 Each Univers glucose 0-15 daily. ity of scanning 00:00: [place] reader 00 Medical (FREESTYLE Branch BRITNEY 2 READER) Misc flash 2020-1 Yes 1{each} 1 Each Univers glucose 0-15 daily. ity of scanning 00:00: [place] reader 00 Medical (FREESTYLE Branch BRITNEY 2 READER) Misc flash 2020-1 Yes 1{each} 1 Each Univers glucose 0-15 daily. ity of scanning 00:00: [place] reader 00 Medical (FREESTYLE Branch BRITNEY 2 READER) Misc flash 2020-1 Yes 1{each} 1 Each Univers glucose 0-15 daily. ity of scanning 00:00: [place] reader 00 Medical (FREESTYLE Branch BRITNEY 2 READER) Misc flash 2020-1 Yes 1{each} 1 Each Univers glucose 0-15 daily. ity of scanning 00:00: [place] reader 00 Medical (FREESTYLE Branch BRITNEY 2 READER) Misc flash 2020-1 Yes 1{each} 1 Each Univers glucose 0-15 daily. ity of scanning 00:00: [place] reader 00 Medical (FREESTYLE Branch BRITNEY 2 READER) Misc flash 2020-1 Yes 1{each} 1 Each Univers glucose 0-15 daily. ity of scanning 00:00: [place] reader 00 Medical (FREESTYLE Branch BRITNEY 2 READER) Misc flash 2020-1 Yes 1{each} 1 Each Univers glucose 0-15 daily. ity of scanning 00:00: [place] reader 00 Medical (FREESTYLE Branch BRITNEY 2 READER) Misc flash 2020-1 Yes 1{each} 1 Each Univers glucose 0-15 daily. ity of scanning 00:00: [place] reader 00 Medical (FREESTYLE Branch BRITNEY 2 READER) Misc flash 2020-1 Yes 1{each} 1 Each Univers glucose 0-15 daily. ity of scanning 00:00: [place] reader 00 Medical (FREESTYLE Branch BRITNEY 2 READER) Misc flash 2020-1 Yes 1{each} 1 Each Univers glucose 0-15 daily. ity of scanning 00:00: [place] reader 00 Medical (FREESTYLE Branch BRITNEY 2 READER) Misc flash 2020-1 Yes 1{each} 1 Each Univers glucose 0-15 daily. ity of scanning 00:00: [place] reader 00 Medical (FREESTYLE Branch BRITNEY 2 READER) Misc flash 2020-1 Yes 1{each} 1 Each Univers glucose 0-15 daily. ity of scanning 00:00: [place] reader 00 Medical (FREESTYLE Branch BRITNEY 2 READER) Misc flash 2020-1 Yes 1{each} 1 Each Univers glucose 0-15 daily. ity of scanning 00:00: [place] reader 00 Medical (FREESTYLE Branch BRITNEY 2 READER) Misc flash 2020-1 Yes 1{each} 1 Each Univers glucose 0-15 daily. ity of scanning 00:00: [place] reader 00 Medical (FREESTYLE Branch BRITNEY 2 READER) Misc flash 2020-1 Yes 1{each} 1 Each Univers glucose 0-15 daily. ity of scanning 00:00: [place] reader 00 Medical (FREESTYLE Branch BRITNEY 2 READER) Misc flash 2020-1 Yes 1{each} 1 Each Univers glucose 0-15 daily. ity of scanning 00:00: [place] reader 00 Medical (FREESTYLE Branch BRITNEY 2 READER) Misc flash 2020-1 Yes 1{each} 1 Each Univers glucose 0-15 daily. ity of scanning 00:00: [place] reader 00 Medical (FREESTYLE Branch BRITNEY 2 READER) Misc flash 2020-1 Yes 1{each} 1 Each Univers glucose 0-15 daily. ity of scanning 00:00: [place] reader 00 Medical (FREESTYLE Branch BRITNEY 2 READER) Misc flash 2020-1 Yes 1{each} 1 Each Univers glucose 0-15 daily. ity of scanning 00:00: [place] reader 00 Medical (FREESTYLE Branch BRITNEY 2 READER) Misc flash 2020-1 Yes 1{each} 1 Each Univers glucose 0-15 daily. ity of scanning 00:00: [place] reader 00 Medical (FREESTYLE Branch BRITNEY 2 READER) Misc flash 2020-1 Yes 1{each} 1 Each Univers glucose 0-15 daily. ity of scanning 00:00: [place] reader 00 Medical (FREESTYLE Branch BRITNEY 2 READER) Misc flash 2020-1 Yes 1{each} 1 Each Univers glucose 0-15 daily. ity of scanning 00:00: [place] reader 00 Medical (FREESTYLE Branch BRITNEY 2 READER) Misc flash 2020-1 Yes 1{each} 1 Each Univers glucose 0-15 daily. ity of scanning 00:00: [place] reader 00 Medical (FREESTYLE Branch BRITNEY 2 READER) Misc flash 2020-1 Yes 1{each} 1 Each Univers glucose 0-15 daily. ity of scanning 00:00: [place] reader 00 Medical (FREESTYLE Branch BRITNEY 2 READER) Misc flash 2020-1 Yes 1{each} 1 Each Univers glucose 0-15 daily. ity of scanning 00:00: [place] reader 00 Medical (FREESTYLE Branch BRITNEY 2 READER) Misc flash 2020-1 Yes 1{each} 1 Each Univers glucose 0-15 daily. ity of scanning 00:00: [place] reader 00 Medical (FREESTYLE Branch BRITNEY 2 READER) Misc flash 2020-1 Yes 1{each} 1 Each Univers glucose 0-15 daily. ity of scanning 00:00: [place] reader 00 Medical (FREESTYLE Branch BRITNEY 2 READER) Misc flash 2020-1 Yes 1{each} 1 Each Univers glucose 0-15 daily. ity of scanning 00:00: [place] reader 00 Medical (FREESTYLE Branch BRITNEY 2 READER) Misc flash 2020-1 Yes 1{each} 1 Each Univers glucose 0-15 daily. ity of scanning 00:00: [place] reader 00 Medical (FREESTYLE Branch BRITNEY 2 READER) Misc flash 2020-1 Yes 1{each} 1 Each Univers glucose 0-15 daily. ity of scanning 00:00: [place] reader 00 Medical (FREESTYLE Branch BRITNEY 2 READER) Misc flash 2020- Yes 1{each} 1 Each Univers glucose 0-15 daily. ity of scanning 00:00: [place] reader 00 Medical (FREESTYLE Branch BRITNEY 2 READER) Misc flash 2020- Yes 1{each} 1 Each Univers glucose 0-15 daily. ity of scanning 00:00: [place] reader 00 Medical (FREESTYLE Branch BRITNEY 2 READER) Misc flash 2020- Yes 1{each} 1 Each Univers glucose 0-15 daily. ity of scanning 00:00: [place] reader 00 Medical (FREESTYLE Branch BRITNEY 2 READER) Misc flash 2020- Yes 1{each} 1 Each Univers glucose 0-15 daily. ity of scanning 00:00: [place] reader 00 Medical (FREESTYLE Branch BRITNEY 2 READER) Misc flash 2020- Yes 1{each} 1 Each Univers glucose 0-15 daily. ity of scanning 00:00: [place] reader 00 Medical (FREESTYLE Branch BRITNEY 2 READER) Misc flash 2020- Yes 1{each} 1 Each Univers glucose 0-15 daily. ity of scanning 00:00: [place] reader 00 Medical (FREESTYLE Branch BRITNEY 2 READER) Misc flash 2020- Yes [id number] 1{kit} 1 Kit Univ ers glucose 0-07 every 14 ity of sensor 00:00: (fourteen) [place] (FREESTYLE 00 days. Medical BRITNEY 2 Branch SENSOR) Kit insulin 2019-06 Yes [id number] 18U inject 18 Univers degludec 0-07 Units ity of (TRESIBA 00:00: [place] FLEXTOUCH 00 skin Medical U-100) 100 daily. Branch unit/mL (3 mL) InPn insulin 2019- Yes [id number] 4U inject Uni vers aspart 0-07 4-10 Units ity of U-100 100 00:00: under the [place] unit/mL (3 00 skin 3 Medical mL) (three) Branch injection times daily before meals. flash 2019-06 Yes [id number] 1{kit} 1 Kit Univ ers glucose 0-07 every 14 ity of sensor 00:00: (fourteen) [place] (FREESTYLE days. Medical BRITNEY 2 Branch SENSOR) Kit insulin 2020- Yes [id number] 18U inject 18 Univers degludec 0-07 Units ity of (TRESIBA 00:00: [place] FLEXTOUCH 00 skin Medical U-100) 100 daily. Branch unit/mL (3 mL) InPn insulin 2020- Yes [id number] 4U inject Uni vers aspart 0-07 4-10 Units ity of U-100 100 00:00: under the [place] unit/mL (3 00 skin 3 Medical mL) (three) Branch injection times daily before meals. flash 2019- Yes [id number] 1{kit} 1 Kit Univ ers glucose 0-07 every 14 ity of sensor 00:00: (fourteen) [place] (FREESTYLE days. Medical BRITNEY 2 Branch SENSOR) Kit insulin 2020- Yes [id number] 18U inject 18 Univers degludec 0-07 Units ity of (TRESIBA 00:00: [place] FLEXTOUCH 00 skin Medical U-100) 100 daily. Branch unit/mL (3 mL) InPn insulin 2020- Yes [id number] 4U inject Uni vers aspart 0-07 4-10 Units ity of U-100 100 00:00: under the [place] unit/mL (3 00 skin 3 Medical mL) (three) Branch injection times daily before meals. flash 2019-06 Yes [id number] 1{kit} 1 Kit Univ ers glucose 0-07 every 14 ity of sensor 00:00: (fourteen) [place] (FREESTYLE . Medical BRITNEY 2 Branch SENSOR) Kit insulin 2019- Yes [id number] 18U inject 18 Univers degludec 0-07 Units ity of (TRESIBA 00:00: [place] FLEXTOUCH 00 skin Medical U-100) 100 daily. Branch unit/mL (3 mL) InPn insulin 2020- Yes [id number] 4U inject Uni vers aspart 0-07 4-10 Units ity of U-100 100 00:00: under the [place] unit/mL (3 00 skin 3 Medical mL) (three) Branch injection times daily before meals. flash 2019- Yes [id number] 1{kit} 1 Kit Univ ers glucose 0-07 every 14 ity of sensor 00:00: (fourteen) (FREESTYLE days. Medical BRITNEY 2 Branch SENSOR) Kit insulin 2020- Yes [id number] 18U inject 18 Univers degludec 0-07 Units ity of (TRESIBA 00:00: [place] FLEXTOUCH 00 skin Medical U-100) 100 daily. Branch unit/mL (3 mL) InPn insulin 2020- Yes [id number] 4U inject Uni vers aspart 0-07 4-10 Units ity of U-100 100 00:00: under the [place] unit/mL (3 00 skin 3 Medical mL) (three) Branch injection times daily before meals. flash 2019-06 Yes [id number] 1{kit} 1 Kit [facility] ers glucose 0-07 every 14 ity of sensor 00:00: (fourteen) [place] (FREESTYLE . Medical BRITNEY 2 Branch SENSOR) Kit insulin 2019- Yes [id number] 18U inject 18 [facility] degludec 0-07 Units ity of (TRESIBA 00:[place]: [place] FLEXTOUCH 00 skin Medical U-100) 100 daily. Branch unit/mL (3 mL) InPn insulin 2019- Yes [id number] 4U inject Uni vers aspart 0-07 4-10 Units ity of U-100 100 00:00: under the [place] unit/mL (3 00 skin 3 Medical mL) (three) Branch injection times daily before meals. flash 2019- Yes [id number] 1{kit} 1 Kit [facility] ers glucose 0-07 every 14 ity of sensor 00:00: (fourteen) [place] (FREESTYLE 00 days. Medical BRITNEY 2 Branch SENSOR) Kit insulin 2019- Yes [id number] 18U inject 18 [facility] degludec 0-07 Units ity of (TRESIBA 00:[place]: [place] FLEXTOU[place] 00 skin Medical U-100) 100 daily. Branch unit/mL (3 mL) InPn insulin 2020- Yes [id number] 4U inject Uni vers aspart 0-07 4-10 Units ity of U-100 100 00:00: under the [place] unit/mL (3 00 skin 3 Medical mL) (three) Branch injection times daily before meals. flash 2019- Yes [id number] 1{kit} 1 Kit Univ ers glucose 0-07 every 14 ity of sensor 00:00: (fourteen) (FREESTYLE 00 days. Medical BRITNYE 2 Branch SENSOR) Kit insulin 2020- Yes [id number] 18U inject 18 [facility] degludec 0-07 Units ity of (TRESIBA 00:00: [place] FLEXTOUCH 00 skin Medical U-100) 100 daily. Branch unit/mL (3 mL) InPn insulin 2020- Yes [id number] 4U inject Uni vers aspart 0-07 4-10 Units ity of U-100 100 00:00: under the [place] unit/mL (3 00 skin 3 Medical mL) (three) Branch injection times daily before meals. flash 2019- Yes [id number] 1{kit} 1 Kit [facility] ers glucose 0-07 every 14 ity of sensor 00:00: (fourteen) [place] (FREESTYLE 00 days. Medical BRITNEY 2 Branch SENSOR) Kit insulin 2020- Yes [id number] 18U inject 18 [facility] degludec 0-07 Units ity of (TRESIBA 00:00: [place] FLEXTOUCH 00 skin Medical U-100) 100 daily. Branch unit/mL (3 mL) InPn insulin 2020- Yes [id number] 4U inject Uni vers aspart 0-07 4-10 Units ity of U-100 100 00:00: under the [place] unit/mL (3 00 skin 3 Medical mL) (three) Branch injection times daily before meals. flash 2019- Yes [id number] 1{kit} 1 Kit [facility] ers glucose 0-07 every 14 ity of sensor 00:00: (fourteen) [place] (FREESTYLE 00 days. Medical BRITNEY 2 Branch SENSOR) Kit insulin 2020- Yes [id number] 18U inject 18 [facility] degludec 0-07 Units ity of (TRESIBA 00:00: [place] FLEXTOUCH 00 skin Medical U-100) 100 daily. Branch unit/mL (3 mL) InPn flash 2020- Yes [id number] 1{kit} 1 Kit [facility] ers glucose 0-07 every 14 ity of sensor 00:00: (fourteen) [place] (FREESTYLE 00 days. Medical BRITNEY 2 Branch SENSOR) Kit insulin 2020- Yes [id number] 18U inject 18 [facility] degludec 0-07 Units ity of (TRESIBA 00:00: [place] FLEXTOUCH 00 skin Medical U-100) 100 daily. Branch unit/mL (3 mL) InPn flash 2020-1 Yes [id number] 1{kit} 1 Kit [facility] ers glucose 0-07 every 14 ity of sensor 00:00: (fourteen) [place] (FREESTYLE 00 days. Medical BRITNEY 2 Branch SENSOR) Kit insulin 2020- Yes [id number] 18U inject 18 [facility] degludec 0-07 Units ity of (TRESIBA 00:00: [place] FLEXTOUCH 00 skin Medical U-100) 100 daily. Branch unit/mL (3 mL) InPn flash 2020- Yes [id number] 1{kit} 1 Kit [facility] ers glucose 0-07 every 14 ity of sensor 00:00: (fourteen) [place] (FREESTYLE 00 days. Medical BRITNEY 2 Branch SENSOR) Kit insulin 2020- Yes [id number] 18U inject 18 [facility] degludec 0-07 Units ity of (TRESIBA 00:00: [place] FLEXTOUCH 00 skin Medical U-100) 100 daily. Branch unit/mL (3 mL) InPn flash 2020- Yes [id number] 1{kit} 1 Kit [facility] ers glucose 0-07 every 14 ity of sensor 00:00: (fourteen) [place] (FREESTYLE 00 days. Medical BRITNEY 2 Branch SENSOR) Kit insulin 2020- Yes [id number] 18U inject 18 [facility] degludec 0-07 Units ity of (TRESIBA 00:00: [place] the [place] FLEXTOUCH 00 skin Medical U-100) 100 daily. Branch unit/mL (3 mL) InPn flash 2020- Yes [id number] 1{kit} 1 Kit [facility] glucose 0-07 every 14 ity of sensor 00:00: (fourteen) [place] (FREESTYLE 00 days. Medical BRITNEY 2 Branch SENSOR) Kit insulin 2020- Yes [id number] 18U inject 18 [facility] degludec 0-07 Units ity of (TRESIBA 00:00: [place] the [place] FLEXTOUCH 00 skin Medical U-100) 100 daily. Branch unit/mL (3 mL) InPn flash 2020-1 Yes [id number] 1{kit} 1 Kit [facility] ers glucose 0-07 every 14 ity of sensor 00:00: (fourteen) [place] (FREESTYLE 00 days. Medical BRITNEY 2 Branch SENSOR) Kit insulin 2020-1 Yes [id number] 18U inject 18 [facility] degludec 0-07 Units ity of (TRESIBA 00:00: [place] FLEXTOUCH 00 skin Medical U-100) 100 daily. Branch unit/mL (3 mL) InPn flash 2020-1 Yes [id number] 1{kit} 1 Kit [facility] ers glucose 0-07 every 14 ity of sensor 00:00: (fourteen) [place] (FREESTYLE 00 days. Medical BRITNEY 2 Branch SENSOR) Kit insulin 2020-1 Yes [id number] 18U inject 18 [facility] degludec 0-07 Units ity of (TRESIBA 00:00: [place] FLEXTOUCH 00 skin Medical U-100) 100 daily. Branch unit/mL (3 mL) InPn flash 2020-1 Yes [id number] 1{kit} 1 Kit [facility] ers glucose 0-07 every 14 ity of sensor 00:00: (fourteen) [place] (FREESTYLE 00 days. Medical BRITNEY 2 Branch SENSOR) Kit flash 2020-1 Yes [id number] 1{kit} 1 Kit [facility] ers glucose 0-07 every 14 ity of sensor 00:00: (fourteen) [place] (FREESTYLE 00 days. Medical BRITNEY 2 Branch SENSOR) Kit flash 2020-1 Yes [id number] 1{kit} 1 Kit [facility] ers glucose 0-07 every 14 ity of sensor 00:00: (fourteen) [place] (FREESTYLE 00 days. Medical BRITNEY 2 Branch SENSOR) Kit flash 2020-1 Yes [id number] 1{kit} 1 Kit [facility] ers glucose 0-07 every 14 ity of sensor 00:00: (fourteen) [place] (FREESTYLE 00 days. Medical BRITNEY 2 Branch SENSOR) Kit flash 2020-1 Yes [id number] 1{kit} 1 Kit [facility] glucose 0-07 every 14 ity of sensor 00:00: (fourteen) [place] (FREESTYLE 00 days. Medical BRITNEY 2 Branch SENSOR) Kit flash 2020-1 Yes [id number] 1{kit} 1 Kit [facility] glucose 0-07 every 14 ity of sensor 00:00: (fourteen) [place] (FREESTYLE 00 days. Medical BRITNEY 2 Branch SENSOR) Kit flash 2020-1 Yes [id number] 1{kit} 1 Kit [facility] glucose 0-07 every 14 ity of sensor 00:00: (fourteen) [place] (FREESTYLE 00 days. Medical BRITNEY 2 Branch SENSOR) Kit flash 2020-1 Yes [id number] 1{kit} 1 Kit [facility] glucose 0-07 every 14 ity of sensor 00:00: (fourteen) [place] (FREESTYLE 00 days. Medical BRITNEY 2 Branch SENSOR) Kit flash 2020-1 Yes [id number] 1{kit} 1 Kit [facility] glucose 0-07 every 14 ity of sensor 00:00: (fourteen) [place] (FREESTYLE 00 days. Medical BRITNEY 2 Branch SENSOR) Kit flash 2020-1 Yes [id number] 1{kit} 1 Kit [facility] ers glucose 0-07 every 14 ity of sensor 00:00: (fourteen) [place] (FREESTYLE 00 days. Medical BRITNEY 2 Branch SENSOR) Kit flash 2020-1 Yes [id number] 1{kit} 1 Kit [facility] ers glucose 0-07 every 14 ity of sensor 00:00: (fourteen) [place] (FREESTYLE 00 days. Medical BRITNEY 2 Branch SENSOR) Kit flash 2020-1 Yes [id number] 1{kit} 1 Kit [facility] ers glucose 0-07 every 14 ity of sensor 00:00: (fourteen) [place] (FREESTYLE 00 days. Medical BRITNEY 2 Branch SENSOR) Kit flash 2020-1 Yes [id number] 1{kit} 1 Kit [facility] ers glucose 0-07 every 14 ity of sensor 00:00: (fourteen) [place] (FREESTYLE 00 days. Medical BRITNEY 2 Branch SENSOR) Kit flash 2020-1 Yes [id number] 1{kit} 1 Kit [facility] ers glucose 0-07 every 14 ity of sensor 00:00: (fourteen) [place] (FREESTYLE 00 days. Medical BRITNEY 2 Branch SENSOR) Kit flash 2020-1 Yes [id number] 1{kit} 1 Kit [facility] ers glucose 0-07 every 14 ity of sensor 00:00: (fourteen) [place] (FREESTYLE 00 days. Medical BRITNEY 2 Branch SENSOR) Kit flash 2020-1 Yes [id number] 1{kit} 1 Kit [facility] ers glucose 0-07 every 14 ity of sensor 00:00: (fourteen) [place] (FREESTYLE 00 days. Medical BRITNEY 2 Branch SENSOR) Kit flash 2020- Yes [id number] 1{kit} 1 Kit [facility] ers glucose 0-07 every 14 ity of sensor 00:00: (fourteen) [place] (FREESTYLE 00 days. Medical BRITNEY 2 Branch SENSOR) Kit flash 2020- Yes [id number] 1{kit} 1 Kit [facility] ers glucose 0-07 every 14 ity of sensor 00:00: (fourteen) [place] (FREESTYLE 00 days. Medical BRITENY 2 Branch SENSOR) Kit flash 2020- Yes [id number] 1{kit} 1 Kit [facility] ers glucose 0-07 every 14 ity of sensor 00:00: (fourteen) [place] (FREESTYLE 00 days. Medical BRITNEY 2 Branch SENSOR) Kit flash 2020- Yes [id number] 1{kit} 1 Kit [facility] ers glucose 0-07 every 14 ity of sensor 00:00: (fourteen) [place] (FREESTYLE 00 days. Medical BRITNEY 2 Branch SENSOR) Kit flash 2020- Yes [id number] 1{kit} 1 Kit [facility] ers glucose 0-07 every 14 ity of sensor 00:00: (fourteen) [place] (FREESTYLE 00 days. Medical BRITNEY 2 Branch SENSOR) Kit flash 2019-2020- No [id number] 1{kit} 1 Kit Uni vers glucose 0-07 06-07 every 14 ity of sensor 00:00: 00[place]teen[place] (FREE[place] :00 days. Medical BRITNEY 2 Branch SENSOR) Kit insulin 2019-06- No [id number] 18U inject 18 [facility] degludec 0-07 02-16 Units ity of (TRESIBA 00:00: 00:00 under the [place] FLEXTOUCH 00 :00 skin Medical U-100) 100 daily. Branch unit/mL (3 mL) InPn insulin 2019-06- No [id number] 4U inject Un diallo aspart 0-07 01-25 4-10 Units ity of U-100 100 00:00: 00:00 under the [place] unit/mL (3 00 :00 skin 3 Medical mL) (three) Branch injection times daily before meals. TRESIBA Yes [id number] INJECT 20 Univers FLEXTOUCH 7-19 UNITS ity of U-100 100 00:00: SUBCUTANEO [place] unit/mL (3 00 USLY ONCE Medi marlon mL) InPn DAILY Branch TRESIBA 2019-0 2020- No [id number] INJECT 20 Univers FLEXTOUCH 7-19 10-07 UNITS ity of U-100 100 00:00: 00:00 SUBCUTANEO [place] unit/mL (3 00 :00 USLY ONCE Medi marlon mL) InPn DAILY Branch TRESIBA 2019-0 2020- No [id number] INJECT 20 Univers FLEXTOUCH 7-19 10-07 UNITS ity of U-100 100 00:00: 00:00 SUBCUTANEO [place] unit/mL (3 00 :00 USLY ONCE Medi marlon mL) InPn DAILY Branch LEVOTHYROXI 2020-0 Yes [id number] TAKE 1 Univers NE 25 mcg 5-31 TABLET BY ity o f tablet 00:00: MOUTH ONCE [place] 00 DAILY IN [facility] MORNING LEVOTHYROXI 2020-0 Yes [id number] TAKE 1 Univers NE 25 mcg 5-31 TABLET BY ity o f tablet 00:00: MOUTH ONCE [place] 00 DAILY IN [facility] MORNING LEVOTHYROXI 2020-0 Yes [id number] TAKE 1 Univers NE 25 mcg 5-31 TABLET BY ity o f tablet 00:00: MOUTH ONCE [place] 00 DAILY IN [facility] MORNING LEVOTHYROXI 2020-0 Yes [id number] TAKE 1 Univers NE 25 mcg 5-31 TABLET BY ity o f tablet 00:00: MOUTH ONCE [place] 00 DAILY IN [facility] MORNING LEVOTHYROXI 2020-0 Yes [id number] TAKE 1 Univers NE 25 mcg 5-31 TABLET BY ity o f tablet 00:00: MOUTH ONCE [place] 00 DAILY IN [facility] MORNING LEVOTHYROXI 2020-0 Yes [id number] TAKE 1 Univers NE 25 mcg 5-31 TABLET BY ity o f tablet 00:00: MOUTH ONCE [place] 00 DAILY IN [facility] MORNING LEVOTHYROXI 2020-0 Yes [id number] TAKE 1 Univers NE 25 mcg 5-31 TABLET BY ity o f tablet 00:00: MOUTH ONCE [place] 00 DAILY IN [facility] MORNING LEVOTHYROXI 2020-0 2020- No [id number] TAKE 1 Univers NE 25 mcg 5-31 01-13 TABLET BY ity of tablet 00:00: 00:00 M[place]TH ONCE [place] 00 :00 DAILY IN Medical THE Branch MORNING LEVOTHYROXI 2020-0 2021- No [id number] TAKE 1 Univers NE 25 mcg 5-31 01-13 TABLET BY ity of tablet 00:00: 00:00 M[place]TH [place]CE [place] 00 :[place] DAILY IN Medical THE [place] MORNING flash Yes [id number] 1{each} 1 Each Un diallo glucose 3-24 every 14 ity of sensor 00:00: (fourteen) [place] (FREESTYLE 00 days. Medical BRITNEY 14 Branch SENSOR) Kit flash Yes [id number] 1{each} 1 Each Un diallo glucose 3-24 every 14 ity of sensor 00:00: (fourteen) [place] (FREESTYLE 00 days. Medical BRITNEY 14 Branch SENSOR) Kit flash 2019- Yes [id number] 1{each} 1 Each Un diallo glucose 3-24 every 14 ity of sensor 00:00: (fourteen) [place] (FREESTYLE 00 days. Medical BRITNEY 14 Branch SENSOR) Kit flash 2020- No [id number] 1{each} 1 Each U nivers glucose 3-24 10-07 every 14 ity of sensor 00:00: 00:[place] ([place]teen[place] (FREESTYLE 00 :00 days. Medical BRITNEY 14 Branch SENSOR) Kit flash 2020- No [id number] 1{each} 1 Each U nivers glucose 3-24 10-07 every 14 ity of sensor 00:00: 00:[place] (fourteen[place] (FREESTYLE 00 :00 days. Medical BRITNEY 14 Branch SENSOR) Kit flash Yes [id number] 1{each} 1 Each Un diallo glucose 3-05 every 14 ity of sensor 00:00: (fourteen) [place] (FREESTYLE 00 days. Medical BRITNEY 14 Branch DAY SENSOR) Kit flash 20200 2020- No [id number] 1{each} 1 Each U nivers glucose 3-05 03-24 every 14 ity of sensor 00:00: 00:00 (fourteen[place] (FREESTYLE 00 :00 days. Medical BRITNEY 14 Branch DAY SENSOR) Kit TRESIBA 2018-06 Yes [id number] INJECT 20 [facility] FLEXTOUCH 2-08 UNITS ity of U-100 100 00:00: SUBCUTANEO [place] unit/mL (3 00 USLY ONCE Medi marlon mL) InPn DAILY Branch [facility] 2018-06 Yes [id number] INJECT 20 Univers FLEXTOUCH 2-08 UNITS ity of U-100 100 00:00: SUBCUTANEO [place] unit/mL (3 00 USLY ONCE Medi marlon mL) In DAILY Branch [facility] 2018-06 Yes [id number] INJECT 20 Univers FLEXTOUCH 2-08 UNITS ity of U-100 100 00:00: SUBCUTANEO [place] unit/mL (3 00 USLY ONCE Medi marlon mL) In DAILY Branch [facility] 2018-06 Yes [id number] INJECT 20 Univers FLEXTOUCH 2-08 UNITS ity of U-100 100 00:00: SUBCUTANEO [place] unit/mL (3 00 USLY ONCE Medi marlon mL) In DAILY Branch [facility] 2018-06 Yes [id number] INJECT 20 [facility] FLEXTOUCH 2-08 UNITS ity of U-100 100 00:00: SUBCUTANEO [place] unit/mL (3 00 USLY ONCE Medi marlon mL) In DAILY Branch [facility] 2018-06 Yes [id number] INJECT 20 Univers FLEXTOUCH 2-08 UNITS ity of U-100 100 00:00: SUBCUTANEO [place] unit/mL (3 00 USLY ONCE Medi marlon mL) In DAILY Branch [facility] 2018-06 2020- No [id number] INJECT 20 Univers FLEXTOUCH 2-08 07-19 UNITS ity of U-100 100 00:00: 00:00 SUBCUTANEO [place] unit/mL (3 00 :00 USLY ONCE Medi marlon mL) In DAILY Branch ciprofloxac 2018-06 Yes [id number] 500mg Take 1 Univers in HCl 500 1-24 tablet by ity of mg tablet 00:00: mouth 2 [place] 00 (two) Medical times Branch daily. metoclopram 2018-06 Yes [id number] 10mg Take 1 Univers luann HCl 10 1-24 tablet by ity of mg tablet 00:00: mouth [place] 00 every 6 Medical (six) Branch hours as needed for Nausea and Vomiting (N/V). ciprofloxac 2018-06 Yes [id number] 500mg Take 1 Univers in HCl 500 1-24 tablet by ity of mg tablet 00:00: mouth 2 [place] 00 (two) Medical times Branch daily. metoclopram 2018-06 Yes [id number] 10mg Take 1 [facility] luann HCl 10 1-24 tablet by ity of mg tablet 00:00: mouth [place] 00 every 6 Medical (six) Branch hours as needed for Nausea and Vomiting (N/V). ciprofloxac 2018-06 Yes [id number] 500mg Take 1 Univers in HCl 500 1-24 tablet by ity of mg tablet 00:00: mouth 2 [place] 00 (two) Medical times Branch daily. metoclopram 2018-06 Yes [id number] 10mg Take 1 [facility] luann HCl 10 1-24 tablet by ity of mg tablet 00:00: mouth [place] 00 every 6 Medical (six) Branch hours as needed for Nausea and Vomiting (N/V). ciprofloxac 2018-06 Yes [id number] 500mg Take 1 Univers in HCl 500 1-24 tablet by ity of mg tablet 00:00: mouth 2 [place] 00 (two) Medical times Branch daily. metoclopram 2018-06 Yes [id number] 10mg Take 1 [facility] luann HCl 10 1-24 tablet by ity of mg tablet 00:00: mouth [place] 00 every 6 Medical (six) Branch hours as needed for Nausea and Vomiting (N/V). ciprofloxac 2018-06 Yes [id number] 500mg Take 1 Univers in HCl 500 1-24 tablet by ity of mg tablet 00:00: mouth 2 [place] 00 (two) Medical times Branch daily. metoclopram 2018-06 Yes [id number] 10mg Take 1 [facility] luann HCl 10 1-24 tablet by ity of mg tablet 00:00: mouth [place] 00 every 6 Medical (six) Branch hours as needed for Nausea and Vomiting (N/V). ciprofloxac 2018-06 2020- No [id number] 500mg Take 1 Univers in HCl 500 1-24 04-30 tablet by ity of mg tablet 00:00: 00:00 mouth 2 [place] 00 :00 (two) Medical times Branch daily. metoclopram 2018-06 2020- No [id number] 10mg Take 1 [facility] luann HCl 10 1-24 04-30 tablet by ity of mg tablet 00:00: 00:00 mouth [place] 00 :00 every 6 Medical (six) Branch hours as needed for Nausea and Vomiting (N/V). levothyroxi 2018-06 Yes [id number] 25ug Take 1 Univers ne 25 mcg 1-12 tablet by ity o f tablet 00:00: mouth [place] 00 every Medical morning. Branch levothyroxi 2018- Yes [id number] 25ug Take 1 Univers ne 25 mcg 1-12 tablet by ity o f tablet 00:00: mouth [place] 00 every Medical morning. Branch levothyroxi 2018- Yes [id number] 25ug Take 1 Univers ne 25 mcg 1-12 tablet by ity o f tablet 00:00: mouth [place] 00 every Medical morning. Branch levothyroxi 2018- Yes [id number] 25ug Take 1 Univers ne 25 mcg 1-12 tablet by ity o f tablet 00:00: mouth [place] 00 every Medical morning. Branch levothyroxi 2018- Yes [id number] 25ug Take 1 Univers ne 25 mcg 1-12 tablet by ity o f tablet 00:00: mouth [place] 00 every Medical morning. Branch levothyroxi 2018- Yes [id number] 25ug Take 1 Univers ne 25 mcg 1-12 tablet by ity o f tablet 00:00: mouth [place] 00 every Medical morning. Branch FREESTYLE Yes [id number] 1{each} 1 Each Univers BRITNEY 14 8-15 every 14 ity of DAY SENSOR 00:00: (fourteen) [place] Kit 00 days. Medical Branch NOVOFINE Yes 1{each} 1 Each 4 Un diallo PLUS 32 8-15 (four) ity of gauge x 00:00: times [place] 06/22" Ndle 00 daily. Use Medi marlon as Branch directed, QID, DX:E11.9 FREESTYLE Yes [id number] 1{each} 1 Each Univers BRITNEY 14 8-15 every 14 ity of DAY SENSOR 00:00: (fourteen) [place] Kit 00 days. Medical Branch NOVOFINE Yes 1{each} 1 Each 4 Un diallo PLUS 32 8-15 (four) ity of gauge x 00:00: times [place] 06/22" Ndle 00 daily. Use Medi marlon as Branch directed, QID, DX:E11.9 FREESTYLE 2018- Yes [id number] 1{each} 1 Each Univers BRITNEY 14 8-15 every 14 ity of DAY SENSOR 00:00: (fourteen) [place] Kit 00 days. Medical Branch NOVOFINE 2018- Yes 1{each} 1 Each 4 Un diallo PLUS 32 8-15 (four) ity of gauge x 00:00: times [place] 06/22" Ndle 00 daily. Use Medi marlon as Branch directed, QID, DX:E11.9 FREESTYLE Yes [id number] 1{each} 1 Each [facility] BRITNEY 14 8-15 every 14 ity of DAY SENSOR 00:00: (fourteen) [place] Kit 00 days. Medical Branch NOVOFINE Yes 1{each} 1 Each 4 Un diallo PLUS 32 8-15 (four) ity of gauge x 00:00: times [place] 06/22" Ndle 00 daily. Use Medi marlon as Branch directed, QID, DX:E11.9 NOVOFINE Yes 1{each} 1 Each 4 Un diallo PLUS 32 8-15 (four) ity of gauge x 00:00: times [place] 06/22" Ndle 00 daily. Use Medi marlon as Branch directed, QID, DX:E11.9 NOVOFINE Yes 1{each} 1 Each 4 Un diallo PLUS 32 8-15 (four) ity of gauge x 00:00: times [place] 06/22" Ndle 00 daily. Use Medi marlon as Branch directed, QID, DX:E11.9 NOVOFINE Yes 1{each} 1 Each 4 Un diallo PLUS 32 8-15 (four) ity of gauge x 00:00: times [place] 06/22" Ndle 00 daily. Use Medi marlon as Branch directed, QID, DX:E11.9 NOVOFINE Yes 1{each} 1 Each 4 Un diallo PLUS 32 8-15 (four) ity of gauge x 00:00: times [place] 06/22" Ndle 00 daily. Use Medi marlon as Branch directed, QID, DX:E11.9 NOVOFINE 2020- No 1{each} 1 Each 4 U nivers PLUS 32 8-15 10-07 (four) ity of gauge x 00:00: 00:00 times [place] 1" Ndle 00 :00 daily. Use Medi marlon as Branch directed, QID, DX:E11.9 NOVOFINE 2020- No 1{each} 1 Each 4 U nivers PLUS 32 8-15 10-07 (four) ity of gauge x 00:00: 00:00 times [place] 1/6" Ndle 00 :00 daily. Use Medi marlon as Branch directed, QID, DX:E11.9 FREESTYLE 2018- 2020- No [id number] 1{each} 1 Each [facility] BRITNEY 14 8-15 03-05 every 14 ity of DAY SENSOR 00:00: 00:00 (fourteen) [place] Kit 00 :00 days. Medical Branch insulin 2019- No inject Univers regular -14 01-31 under the ity of human 20:16: 00:00 skin. [place] (NOVOLIN R) 06 :00 Medical 100 unit/mL Branch injection insulin 2019- No inject Univers regular -14 01-31 under the ity of human 20:16: 00:00 skin. [place] (NOVOLIN R) 06 :00 Medical 100 unit/mL Branch injection TRESIBA Yes [id number] 20U inject 20 [facility] FLEXTOUCH 7-31 Units ity of U-100 100 00:00: under the [place] unit/mL (3 00 skin every Med ical mL) InPn morning. Branch insulin Yes [id number] 4U inject Uni vers aspart 7-31 4-10 Units ity of U-100 100 00:00: under the [place] unit/mL (3 00 skin 3 Medical mL) (three) Branch injection times daily before meals. FREESTYLE 2018- Yes [id number] 1{each} 1 Each 3 Univers BRITNEY 14 7-31 (three) ity of DAY READER 00:00: times [facility] [place] [facility] 00 daily Medical before Branch meals. FREESTYLE 2018- Yes [id number] 1{each} 1 Each [facility] BRITNEY 14 7-31 every 14 ity of DAY SENSOR 00:00: (fourteen) [place] Kit 00 days. Medical Branch TRESIBA 2018- Yes [id number] 20U inject 20 [facility] FLEXTOUCH 7-31 Units ity of U-100 100 00:00: under the [place] unit/mL (3 00 skin every Med ical mL) InPn morning. Branch insulin 2018- Yes [id number] 4U inject Uni vers aspart 7-31 4-10 Units ity of U-100 100 00:00: under the [place] unit/mL (3 00 skin 3 Medical mL) (three) Branch injection times daily before meals. FREESTYLE 2019-0 Yes [id number] 1{each} 1 Each 3 Univers BRITNEY 14 7-31 (three) ity of DAY READER 00:00: times [place] [facility] 00 daily Medical before Branch meals. FREESTYLE 2019-0 Yes [id number] 1{each} 1 Each [facility] BRITNEY 14 7-31 every 14 ity of DAY SENSOR 00:00: (fourteen) [place] Kit 00 days. Medical Branch TRESIBA 2019-0 Yes [id number] 20U inject 20 [facility] FLEXTOUCH 7-31 Units ity of U-100 100 00:00: under the [place] unit/mL (3 00 skin every Med ical mL) InPn morning. Branch insulin 2019-0 Yes [id number] 4U inject Uni vers aspart 7-31 4-10 Units ity of U-100 100 00:00: under the [place] unit/mL (3 00 skin 3 Medical mL) (three) Branch injection times daily before meals. FREESTYLE 2019-0 Yes [id number] 1{each} 1 Each 3 Univers BRITNEY 14 7-31 (three) ity of DAY READER 00:00: times [place] [address] daily Medical before Branch meals. FREESTYLE 2019-0 Yes [id number] 1{each} 1 Each [facility] BRITNEY 14 7-31 every 14 ity of DAY SENSOR 00:00: (fourteen) [place] Kit 00 days. Medical Branch TRESIBA 2019-0 Yes [id number] 20U inject 20 [facility] FLEXTOUCH 7-31 Units ity of U-100 100 00:00: under the [place] unit/mL (3 00 skin every Med ical mL) InPn morning. Branch insulin 2019-0 Yes [id number] 4U inject Uni vers aspart 7-31 4-10 Units ity of U-100 100 00:00: under the [place] unit/mL (3 00 skin 3 Medical mL) (three) Branch injection times daily before meals. FREESTYLE 2019-0 Yes [id number] 1{each} 1 Each 3 Univers BRITNEY 14 7-31 (three) ity of DAY READER 00:00: times [place] [facility] 00 daily Medical before Branch meals. FREESTYLE 2019-0 Yes [id number] 1{each} 1 Each [facility] BRITNEY 14 7-31 every 14 ity of DAY SENSOR 00:00: (fourteen) [place] Kit 00 days. Medical Branch TRESIBA 2019-0 Yes [id number] 20U inject 20 [facility] FLEXTOUCH 7-31 Units ity of U-100 100 00:00: under the [place] unit/mL (3 00 skin every Med ical mL) InPn morning. Branch insulin 2019-0 Yes [id number] 4U inject Uni vers aspart 7-31 4-10 Units ity of U-100 100 00:00: under the [place] unit/mL (3 00 skin 3 Medical mL) (three) Branch injection times daily before meals. FREESTYLE 2019-0 Yes [id number] 1{each} 1 Each 3 [facility] BRITNEY 14 7-31 (three) ity of DAY READER 00:00: times [place] [address] daily Medical before Branch meals. FREESTYLE 2019-0 Yes [id number] 1{each} 1 Each [facility] BRITNEY 14 7-31 every 14 ity of DAY SENSOR 00:00: (fourteen) [place] Kit days. Medical Branch TRESIBA 2019-0 Yes [id number] 20U inject 20 [facility] FLEXTOUCH 7-31 Units ity of U-100 100 00:00: under the [place] unit/mL (3 00 skin every Med ical mL) InPn morning. Branch insulin 2018-0 Yes [id number] 4U inject Uni vers aspart 7-31 4-10 Units ity of U-100 100 00:00: under the [place] unit/mL (3 00 skin 3 Medical mL) (three) Branch injection times daily before meals. FREESTYLE 2019-0 Yes [id number] 1{each} 1 Each 3 Univers BRITNEY 14 7-31 (three) ity of DAY READER 00:00: times [place] [address] daily Medical before Branch meals. TRESIBA 2019-0 Yes [id number] 20U inject 20 [facility] FLEXTOUCH 7-31 Units ity of U-100 100 00:00: under the [place] unit/mL (3 00 skin every Med ical mL) InPn morning. Branch insulin 2019-0 Yes [id number] 4U inject Uni vers aspart 7-31 4-10 Units ity of U-100 100 00:00: under the [place] unit/mL (3 00 skin 3 Medical mL) (three) Branch injection times daily before meals. FREESTYLE 2019-0 Yes [id number] 1{each} 1 Each 3 Univers BRITNEY 14 7-31 (three) ity of DAY READER 00:00: times [place] Misc 00 daily Medical before Branch meals. insulin 2019-0 Yes [id number] 4U inject Uni vers aspart 7-31 4-10 Units ity of U-100 100 00:00: under the [place] unit/mL (3 00 skin 3 Medical mL) (three) Branch injection times daily before meals. FREESTYLE 2019-0 Yes [id number] 1{each} 1 Each 3 Univers BRITNEY 14 7-31 (three) ity of DAY READER 00:00: times [place] Misc 00 daily Medical before Branch meals. insulin 2019-0 Yes [id number] 4U inject Uni vers aspart 7-31 4-10 Units ity of U-100 100 00:00: under the [place] unit/mL (3 00 skin 3 Medical mL) (three) Branch injection times daily before meals. FREESTYLE 2019-0 Yes [id number] 1{each} 1 Each 3 Univers BRITNEY 14 7-31 (three) ity of DAY READER 00:00: times [place] Misc 00 daily Medical before Branch meals. insulin 2019-0 Yes [id number] 4U inject Uni vers aspart 7-31 4-10 Units ity of U-100 100 00:00: under the [place] unit/mL (3 00 skin 3 Medical mL) (three) Branch injection times daily before meals. FREESTYLE 2019-0 Yes [id number] 1{each} 1 Each 3 Univers BRITNEY 14 7-31 (three) ity of DAY READER 00:00: times [place] Misc 00 daily Medical before Branch meals. insulin 2019-0 Yes [id number] 4U inject Uni vers aspart 7-31 4-10 Units ity of U-100 100 00:00: under the [place] unit/mL (3 00 skin 3 Medical mL) (three) Branch injection times daily before meals. FREESTYLE 2019-0 Yes [id number] 1{each} 1 Each 3 Univers BRITNEY 14 7-31 (three) ity of DAY READER 00:00: times [place] Misc 00 daily Medical before Branch meals. insulin 2019-0 Yes [id number] 4U inject Uni vers aspart 7-31 4-10 Units ity of U-100 100 00:00: under the [place] unit/mL (3 00 skin 3 Medical mL) (three) Branch injection times daily before meals. FREESTYLE 2019- Yes [id number] 1{each} 1 Each 3 Univers BRITNEY 14 7-31 (three) ity of DAY READER 00:00: times [place] Misc 00 daily Medical before Branch meals. insulin 2018- Yes [id number] 4U inject Uni vers aspart 7-31 4-10 Units ity of U-100 100 00:00: under the [place] unit/mL (3 00 skin 3 Medical mL) (three) Branch injection times daily before meals. FREESTYLE 2018- Yes [id number] 1{each} 1 Each 3 Univers BRITNEY 14 7-31 (three) ity of DAY READER 00:00: times [place] Misc 00 daily Medical before Branch meals. insulin 2018- Yes [id number] 4U inject Uni vers aspart - 4-10 Units ity of U-100 100 00:00: under the [place] unit/mL (3 00 skin 3 Medical mL) (three) Branch injection times daily before meals. FREESTYLE 2018- Yes [id number] 1{each} 1 Each 3 Univers BRITNEY 14 7-31 (three) ity of DAY READER 00:00: times [place] Misc 00 daily Medical before Branch meals. insulin 2020- No [id number] 4U inject Un diallo aspart 01-14 4-10 Units ity of U-100 100 00:00: 00:00 under the [place] unit/mL (3 00 :00 skin 3 Medical mL) (three) Branch injection times daily before meals. FREESTYLE 2020- No [id number] 1{each} 1 Each 3 Univers BRITNEY 14 7-31 10-07 (three) ity of DAY READER 00:00: 00:00 times [place] Misc 00 :00 daily Medical before Branch meals. insulin 2018- 2020- No [id number] 4U inject Un diallo aspart 01-14 4-10 Units ity of U-100 100 00:00: 00:00 under the [place] unit/mL (3 00 :00 skin 3 Medical mL) (three) Branch injection times daily before meals. FREESTYLE 2020- No [id number] 1{each} 1 Each 3 Univers BRITNEY 14 01-14 10-07 (three) ity of DAY READER 00:00: 00:00 times [place] Misc 00 :00 daily Medical before Branch meals. MABEL 2019- No [id number] 1{each} 1 Each Univers BRITNEY 14 01-14 08-15 every 14 ity of DAY SENSOR 00:00: 00:00 (fourteen) [place] Kit 00 :00 days. Medical Branch insulin 2013-0 Yes inject Univers regular 7-14 under the ity of human 23:08: skin. [place] (NOVOLIN R) 45 Medical 100 unit/mL Branch injection insulin 2013-0 Yes inject Univers regular 7-14 under the ity of human 23:08: skin. [place] (NOVOLIN R) 45 Medical 100 unit/mL Branch injection pantoprazol 0 Yes 40mg Take 1 Tab Univers e 7-14 by mouth ity of (PROTONIX) 00:00: daily. [place] 40 mg EC 00 Medical tablet Branch proMETHazin 0 Yes 25mg Take 1 Tab Univers e 7-14 by mouth ity of (PHENERGAN) 00:00: every 4 [place] as 25 mg 00 (four) Medical tablet hours as Branch needed for Nausea and Vomiting (N/V). insulin NPH 0 Yes 10U inject 10 U nivers (NOVOLIN N) 7-14 Units ity of 100 unit/mL 00:00: under the [place] injection 00 skin every Medi marlon morning. Branch insulin NPH 0 Yes 5U inject 5 Un diallo (NOVOLIN N) 7-14 Units ity of 100 unit/mL 00:00: under the [place] injection 00 skin every Medi marlon evening. Branch levothyroxi 2013-0 Yes 125ug Take 1 Tab Univers ne 7-14 by mouth ity of (LEVOXYL) 00:00: daily. [place] 125 mcg 00 Medical tablet Branch pantoprazol 2013-0 Yes 40mg Take 1 Tab Univers e 7-14 by mouth ity of (PROTONIX) 00:00: daily. [place] 40 mg EC 00 Medical tablet Branch proMETHazin 2013-0 Yes 25mg Take 1 Tab Univers e 7-14 by mouth ity of (PHENERGAN) 00:00: every 4 [place] as 25 mg 00 (four) Medical tablet hours as Branch needed for Nausea and Vomiting (N/V). insulin NPH Yes 10U inject 10 U nivers (NOVOLIN N) 7-14 Units ity of 100 unit/mL 00:00: under the [place] injection 00 skin every morning. Branch insulin NPH Yes 5U inject 5 Un diallo (NOVOLIN N) 7-14 Units ity of 100 unit/mL 00:00: under the [place] injection 00 skin every Medi evening. Branch levothyroxi Yes 125ug Take 1 Tab Univers ne 14 by mouth ity of (LEVOXYL) 00:00: daily. [place] 125 mcg 00 Medical tablet Branch pantoprazol 2018- No 40mg Take 1 Tab Univers e 12-28 by mouth ity of (PROTONIX) 00:00: 00:00 daily. [place] 40 mg EC 00 :00 Medical tablet Branch proMETHazin 2019- No 25mg Take 1 Tab Univers e 12-28 by mouth ity of (PHENERGAN) 00:00: 00:00 every 4 [place] 25 mg 00 :00 (four) Medical tablet hours as Branch needed for Nausea and Vomiting (N/V). insulin NPH 2018- No 10U inject 10 Univers (NOVOLIN N) 12-28-31 Units ity of 100 unit/mL 00:00: 00:00 under the [place] injection 00 :00 skin every morning. Branch insulin NPH 2019- No 5U inject 5 U nivers (NOVOLIN N) 12-28 07-31 Units ity of 100 unit/mL 00:00: 00:00 under the [place] injection 00 :00 skin every Medi evening. Branch levothyroxi 2019- No 125ug Take 1 Tab Univers ne 12-28 by mouth ity of (LEVOXYL) 00:00: 00:00 daily. [place] 125 mcg 00 :00 Medical tablet Branch pantoprazol 2019- No 40mg Take 1 Tab Univers e 12-28 by mouth ity of (PROTONIX) 00:00: 00:00 daily. [place] 40 mg EC 00 :00 Medical tablet Branch proMETHazin 2019- No 25mg Take 1 Tab Univers e 7-14 07-31 by mouth ity of (PHENERGAN) 00:00: 00:00 every 4 [place] 25 mg 00 :00 (four) Medical tablet hours as Branch needed for Nausea and Vomiting (N/V). insulin NPH 2018- No 10U inject 10 Univers (NOVOLIN N) 12-28 Units ity of 100 unit/mL 00:00: 00:00 under the [place] injection 00 :00 skin every Medi marlon morning. Branch insulin NPH 2019- No 5U inject 5 U nivers (NOVOLIN N) 12-28 Units ity of 100 unit/mL 00:00: 00:00 under the [place] injection 00 :00 skin every Medi marlon evening. Branch levothyroxi 2018- No 125ug Take 1 Tab Univers ne 12-28 by mouth ity of (LEVOXYL) 00:00: 00:00 daily. [place] 125 mcg 00 :00 Medical tablet Branch Immunizations Ordered Filled Immunization Date Status Comments [facility] Immunization Name Name SARS-COV-2 COVID-19 2020-09-09 Completed Unive rsity of MODERNA VACCINE 00:00:00 [facility] Branch SARS-COV-2 COVID-19 2020-09-09 Completed Unive rsity of MODERNA VACCINE 00:00:00 [facility] Branch SARS-COV-2 COVID-19 2020-09-09 Completed Unive rsity of MODERNA VACCINE 00:00:00 [facility] Branch SARS-COV-2 COVID-19 2020-09-09 Completed Unive rsity of MODERNA VACCINE 00:00:00 [facility] Branch SARS-COV-2 COVID-19 2020-09-09 Completed Unive rsity of MODERNA VACCINE 00:00:00 [facility] Branch SARS-COV-2 COVID-19 2020-09-09 Completed Unive rsity of MODERNA VACCINE 00:00:00 [facility] Branch SARS-COV-2 COVID-19 2020-09-09 Completed Unive rsity of MODERNA VACCINE 00:00:00 [facility] Branch SARS-COV-2 COVID-19 2020-09-09 Completed Unive rsity of MODERNA VACCINE 00:00:00 [facility] Branch SARS-COV-2 COVID-19 2020-09-09 Completed Unive rsity of MODERNA VACCINE 00:00:00 [place] Med ical Branch SARS-COV-2 COVID-19 2020-09-09 Completed Unive rsity of MODERNA VACCINE 00:00:00 [place] Med ical Branch SARS-COV-2 COVID-19 2020-09-09 Completed Unive rsity of MODERNA VACCINE 00:00:00 [place] Med ical Branch SARS-COV-2 COVID-19 2020-09-09 Completed Unive rsity of MODERNA VACCINE 00:00:00 [place] Med ical Branch SARS-COV-2 COVID-19 2020-08-18 Completed Unive rsity of MODERNA VACCINE 00:00:00 [place] Med ical Branch SARS-COV-2 COVID-19 2020-08-18 Completed Unive rsity of MODERNA VACCINE 00:00:00 [place] Med ical Branch SARS-COV-2 COVID-19 2020-08-18 Completed Unive rsity of MODERNA VACCINE 00:00:00 [place] Med ical Branch SARS-COV-2 COVID-19 2020-08-18 Completed Unive rsity of MODERNA VACCINE 00:00:00 [place] [facility] ical Branch SARS-COV-2 COVID-19 2020-08-18 Completed Unive rsity of MODERNA VACCINE 00:00:00 [place] [facility] ical Branch SARS-COV-2 COVID-19 2020-08-18 Completed Unive rsity of MODERNA VACCINE 00:00:00 [place] [facility] ical Branch SARS-COV-2 COVID-19 2020-08-18 Completed Unive rsity of MODERNA VACCINE 00:00:00 [place] [facility] ical Branch SARS-COV-2 COVID-19 2020-08-18 Completed Unive rsity of MODERNA VACCINE 00:00:00 [place] Med ical Branch SARS-COV-2 COVID-19 2020-08-18 Completed Unive rsity of MODERNA VACCINE 00:00:00 [place] Med ical Branch SARS-COV-2 COVID-19 2020-08-18 Completed Unive rsity of MODERNA VACCINE 00:00:00 [place] Med ical Branch SARS-COV-2 COVID-19 2020-08-18 Completed Unive rsity of MODERNA VACCINE 00:00:00 [place] Med ical Branch SARS-COV-2 COVID-19 2020-08-18 Completed Unive rsity of MODERNA VACCINE 00:00:00 [facility] Influenza Virus 2020-03-15 Completed Universit y of Vaccine 00:00:00 [facility] Influenza Virus 2020-03-15 Completed Universit y of Vaccine 00:00:00 [facility] Influenza Virus 2020-03-15 Completed Universit y of Vaccine 00:00:00 [facility] Influenza Virus 2020-03-15 Completed Universit y of Vaccine 00:00:00 [facility] Influenza Virus 2020-03-15 Completed Universit y of Vaccine 00:00:00 [facility] Influenza Virus 2020-03-15 Completed Universit y of Vaccine 00:00:00 [facility] Influenza Virus 2020-03-15 Completed Universit y of Vaccine 00:00:00 [facility] Influenza Virus 2020-03-15 Completed Universit y of Vaccine 00:00:00 [facility] Influenza Virus 2020-03-15 Completed Universit y of Vaccine 00:00:00 [facility] Influenza Virus 2020-03-15 Completed Universit y of Vaccine 00:00:00 [facility] Influenza Virus 2020-03-15 Completed Universit y of Vaccine 00:00:00 [facility] Influenza Virus 2020-03-15 Completed Universit y of Vaccine 00:00:00 [facility] Influenza Virus 2020-03-15 Completed Universit y of Vaccine 00:00:00 [facility] Influenza Virus 2020-03-15 Completed Universit y of Vaccine 00:00:00 [facility] Influenza Virus 2020-03-15 Completed Universit y of Vaccine 00:00:00 [facility] Influenza Virus 2020-03-15 Completed Universit y of Vaccine 00:00:00 [facility] Influenza Virus 2020-03-15 Completed Universit y of Vaccine 00:00:00 [facility] Influenza Virus 2020-03-15 Completed Universit y of Vaccine 00:00:00 [facility] Influenza Virus 2020-03-15 Completed Universit y of Vaccine 00:00:00 [facility] Influenza Virus 2020-03-15 Completed Universit y of Vaccine 00:00:00 [facility] Influenza Virus 2020-03-15 Completed Universit y of Vaccine 00:00:00 [facility] Influenza Virus 2020-03-15 Completed Universit y of Vaccine 00:00:00 [facility] Influenza Virus 2020-03-15 Completed Universit y of Vaccine 00:00:00 [facility] Influenza Virus 2020-03-15 Completed Universit y of Vaccine 00:00:00 [facility] Influenza Virus 2020-03-15 Completed Universit y of Vaccine 00:00:00 [facility] Influenza Virus 2020-03-15 Completed Universit y of Vaccine 00:00:00 [facility] Influenza Virus 2020-03-15 Completed Universit y of Vaccine 00:00:00 [facility] Influenza Virus 2020-03-15 Completed Universit y of Vaccine 00:00:00 [facility] Influenza Virus 2020-03-15 Completed Universit y of Vaccine 00:00:00 [facility] Influenza Virus 2020-03-15 Completed Universit y of Vaccine 00:00:00 [facility] Influenza Virus 2020-03-15 Completed Universit y of Vaccine 00:00:00 [facility] Influenza Virus 2020-03-15 Completed Universit y of Vaccine 00:00:00 [facility] Influenza Virus 2020-03-15 Completed Universit y of Vaccine 00:00:00 [facility] Influenza Virus 2020-03-15 Completed Universit y of Vaccine 00:00:00 [facility] Influenza Virus 2020-03-15 Completed Universit y of Vaccine 00:00:00 [facility] Influenza Virus 2020-03-15 Completed Universit y of Vaccine 00:00:00 [facility] Influenza Virus 2020-03-15 Completed Universit y of Vaccine 00:00:00 [facility] Influenza Virus 2020-03-15 Completed Universit y of Vaccine 00:00:00 [facility] Influenza Virus 2020-03-15 Completed Universit y of Vaccine 00:00:00 [facility] Influenza Virus 2020-03-15 Completed Universit y of Vaccine 00:00:00 [facility] Influenza Virus 2020-03-15 Completed Universit y of Vaccine 00:00:00 [facility] Influenza Virus 2020-03-15 Completed Universit y of Vaccine 00:00:00 [facility] Influenza Virus 2020-03-15 Completed Universit y of Vaccine 00:00:00 [facility] Influenza Virus 2020-03-15 Completed Universit y of Vaccine 00:00:00 [facility] Influenza Virus 2020-03-15 Completed Universit y of Vaccine 00:00:00 [facility] Vital Signs Vital Name Observation Time Observation Value Comments Source Systolic blood 2021-02-22 20:42:00 147 mm[Hg] Univer sity of pressure [place] [facility] Diastolic blood 2021-02-22 20:42:00 84 mm[Hg] Unive rsity of pressure [place] [facility] Heart rate 2021-02-22 20:42:00 74 /min Universi ty of [place] [facility] Respiratory rate 2021-02-22 20:42:00 20 /min Univ ersity of [place] [facility] Body height 2021-02-22 20:42:00 157.5 cm Universi ty of [place] [facility] Body weight 2021-02-22 20:42:00 65.772 kg Universi ty of [place] [facility] BMI 2021-02-22 20:42:00 26.52 kg/m2 Universi ty of [place] [facility] Oxygen saturation in 2021-02-22 20:42:00 98 /min University of Arterial blood by [place] [employer] marlon Pulse oximetry Branch Systolic blood 2021-01-02 22:17:00 125 mm[Hg] Univer sity of pressure [place] [facility] Diastolic blood 2021-01-02 22:17:00 81 mm[Hg] Unive rsity of pressure [place] [facility] Heart rate 2021-01-02 22:17:00 98 /min Universi ty of [place] [facility] Body temperature 2021-01-02 22:17:00 37.44 Maria Eugenia Univ ersity of [place] [facility] Respiratory rate 2021-01-02 22:17:00 18 /min Univ ersity of [place] [facility] Body height 2021-01-02 22:17:00 160 cm Universi ty [facility] [place] [facility] Body weight 2021-01-02 22:17:00 63.504 kg [facility]i [facility] [place] [facility] BMI 2021-01-02 22:17:00 24.80 kg/m2 Universi ty of [place] [facility] Oxygen saturation in 2021-01-02 22:17:00 99 /min University of Arterial blood by [place] [employer] marlon Pulse oximetry Branch Systolic blood 2020-12-12 19:41:00 125 mm[Hg] Univer sity of pressure [place] [facility] Diastolic blood 2020-12-12 19:41:00 80 mm[Hg] Unive rsity of pressure [place] [facility] Heart rate 2020-12-12 19:41:00 98 /min Universi ty [facility] [place] [facility] Body temperature 2020-12-12 19:41:00 36.61 Maria Eugenia Univ ersity of [place] [facility] Body height 2020-12-12 19:41:00 160 cm Universi ty [facility] [place] [facility] Body weight 2020-12-12 19:41:00 65.726 kg Universi ty [facility] [place] [facility] BMI 2020-12-12 19:41:00 25.67 kg/m2 Universi ty of [facility] Branch Systolic blood 2020-12-12 15:27:00 127 mm[Hg] Univer sity of pressure [place] [facility] Diastolic blood 2020-12-12 15:27:00 74 mm[Hg] Unive rsity of pressure [facility] Heart rate 2020-12-12 15:27:00 100 /min Universi ty of [facility] Body height 2020-12-12 15:27:00 160 cm Universi ty of [place] [facility] [place] Body weight 2020-12-12 15:27:00 65.318 kg Universi ty [facility] [place] [facility] BMI 2020-12-12 15:27:00 25.51 kg/m2 Universi ty of [facility] Branch Systolic blood 2020-11-22 20:12:00 120 mm[Hg] Univer sity of pressure [place] [facility] Diastolic blood 2020-11-22 20:12:00 78 mm[Hg] Unive rsity of pressure [facility] Branch Heart rate 2020-11-22 20:12:00 82 /min Universi ty of [place] [facility] [place] Body weight 2020-11-22 20:12:00 64.411 kg Universi ty of [place] [facility] BMI 2020-11-22 20:12:00 25.15 kg/m2 Universi ty of [facility] Oxygen saturation in 2020-11-22 20:12:00 100 /min University Arterial blood by [facility] Pulse oximetry Branch Systolic blood 2020-09-22 21:10:00 110 mm[Hg] Univer sity of pressure [facility] Branch Diastolic blood 2020-09-22 21:10:00 64 mm[Hg] Unive rsity of pressure [facility] Heart rate 2020-09-22 21:10:00 72 /min Universi ty of [facility] Body temperature 2020-09-22 21:10:00 36.78 Maria Eugenia Univ ersity of [facility] Respiratory rate 2020-09-22 21:10:00 18 /min Univ ersity of [place] [facility] Body height 2020-09-22 21:10:00 160 cm Universi ty [facility] [place] [facility] Body weight 2020-09-22 21:10:00 64.864 kg [facility]i [facility] [place] [facility] BMI 2020-09-22 21:10:00 25.33 kg/m2 Universi [facility] [place] [facility] Body height 2020-08-17 20:38:00 160 cm [facility]i [facility] [place] [facility] Body weight 2020-08-17 20:38:00 63.504 kg Universi ty of [place] [facility] BMI 2020-08-17 20:38:00 24.80 kg/m2 Universi ty of [facility] Branch Systolic blood 2020-08-17 16:33:00 122 mm[Hg] Univer sity of pressure [place] [facility] Diastolic blood 2020-08-17 16:33:00 78 mm[Hg] Unive rsity of pressure [facility] Heart rate 2020-08-17 16:33:00 99 /min Universi ty of [facility] Body temperature 2020-08-17 16:33:00 37.11 Maria Eugenia Univ ersity of [place] [facility] Respiratory rate 2020-08-17 16:33:00 18 /min Univ ersity of [place] [facility] [place] Body height 2020-08-17 16:33:00 160 cm Universi ty [facility] [place] [facility] Body weight 2020-08-17 16:33:00 63.866 kg Universi ty [facility] [place] [facility] BMI 2020-08-17 16:33:00 24.94 kg/m2 [facility] [place] [facility] Systolic blood 2020-08-15 02:13:00 123 mm[Hg] Univer sity of pressure [place] [facility] Diastolic blood 2020-08-15 02:13:00 92 mm[Hg] Unive rsity of pressure [facility] Heart rate 2020-08-15 02:13:00 95 /min Universi ty of [place] [facility] Respiratory rate 2020-08-15 02:13:00 16 /min Univ ersity of [facility] Oxygen saturation in 2020-08-15 02:13:00 100 /min University of Arterial blood by [facility] Pulse oximetry Branch Body temperature 2020-08-14 21:22:00 37.33 Maria Eugenia Univ ersity of [place] [facility] Body weight 2020-08-14 21:22:00 63.05 kg Universi ty [facility] [place] [facility] BMI 2020-08-14 21:22:00 24.62 kg/m2 Universi ty [facility] [place] [facility] Body temperature 2020-07-27 19:43:00 36.67 Maria Eugenia Univ ersity of [place] [facility] Respiratory rate 2020-07-27 19:43:00 18 /min Univ ersity of [place] [facility] Body height 2020-07-27 19:43:00 160 cm Universi ty [facility] [place] [facility] Body weight 2020-07-27 19:43:00 63.322 kg Universi ty [facility] [place] [facility] BMI 2020-07-27 19:43:00 24.73 kg/m2 Universi ty of [place] [facility] Oxygen saturation in 2020-07-27 19:43:00 100 /min University of Arterial blood by [facility] Pulse oximetry Branch Systolic blood 2020-07-27 19:43:00 107 mm[Hg] Univer sity of pressure [place] [facility] Diastolic blood 2020-07-27 19:43:00 71 mm[Hg] Unive rsity of pressure [place] [facility] Heart rate 2020-07-27 19:43:00 83 /min Universi ty [facility] [place] [facility] Systolic blood 2020-07-14 21:28:00 137 mm[Hg] Univer sity of pressure [place] [facility] Diastolic blood 2020-07-14 21:28:00 92 mm[Hg] Unive rsity of pressure [place] [facility] Heart rate 2020-07-14 21:28:00 85 /min Universi ty of [place] [facility] Body temperature 2020-07-14 21:28:00 37 Maria Eugenia Univ ersity of [place] [facility] Respiratory rate 2020-07-14 21:28:00 18 /min Univ ersity of [place] [facility] Oxygen saturation in 2020-07-14 21:28:00 100 /min University of Arterial blood by [place] [employer] marlon Pulse oximetry Branch Body height 2020-07-12 07:17:00 160 cm [facility]i ty [facility] [place] [facility] Body weight 2020-07-12 07:17:00 66.679 kg [facility] ty [facility] [place] [facility] BMI 2020-07-12 07:17:00 26.04 kg/m2 [facility] ty [facility] [place] [facility] Systolic blood 2020-07-11 23:33:00 132 mm[Hg] Univer sity of pressure [place] [facility] Diastolic blood 2020-07-11 23:33:00 84 mm[Hg] Unive rsity of pressure [place] [facility] Heart rate 2020-07-11 23:33:00 115 /min [facility]i [facility] [place] [facility] Body temperature 2020-07-11 23:33:00 37.61 Maria Eugenia Univ ersity of [place] [facility] Respiratory rate 2020-07-11 23:33:00 18 /min Univ ersity of [place] [facility] Body height 2020-07-11 23:33:00 160 cm [facility] [place] [facility] Body weight 2020-07-11 23:33:00 66.679 kg [facility] [place] [facility] BMI 2020-07-11 23:33:00 26.04 kg/m2 [facility] [place] [facility] Oxygen saturation in 2020-07-11 23:33:00 95 /min University of Arterial blood by [place] [employer] marlon Pulse oximetry Branch Systolic blood 2020-06-29 20:20:00 117 mm[Hg] Univer sity of pressure [place] [facility] Diastolic blood 2020-06-29 20:20:00 79 mm[Hg] Unive rsity of pressure [place] [facility] Heart rate 2020-06-29 20:20:00 75 /min [facility]i ty [facility] [place] [facility] Respiratory rate 2020-06-29 20:20:00 18 /min Univ ersity of [place] [facility] Body height 2020-06-29 20:20:00 160 cm [facility] [place] [facility] Body weight 2020-06-29 20:20:00 66.86 kg [facility] [place] [facility] BMI 2020-06-29 20:20:00 26.11 kg/m2 [facility] [place] [facility] Oxygen saturation in 2020-06-29 20:20:00 100 /min University of Arterial blood by [employer] marlon Pulse oximetry Branch Systolic blood 2020-06-29 20:20:00 117 mm[Hg] Univer sity of pressure [place] [facility] Diastolic blood 2020-06-29 20:20:00 79 mm[Hg] Unive rsity of pressure [place] [facility] Heart rate 2020-06-29 20:20:00 75 /min [facility]i ty [facility] [place] [facility] Respiratory rate 2020-06-29 20:20:00 18 /min Univ ersity of [facility] Body height 2020-06-29 20:20:00 160 cm Universi ty of [place] [facility] [place] Body weight 2020-06-29 20:20:00 66.86 kg [facility] BMI 2020-06-29 20:20:00 26.11 kg/m2 [facility] Oxygen saturation in 2020-06-29 20:20:00 100 /min University of Arterial blood by [facility] Pulse oximetry Branch Systolic blood 2020-03-23 20:40:00 128 mm[Hg] Univer sity of pressure [facility] Diastolic blood 2020-03-23 20:40:00 77 mm[Hg] Unive [facility] Heart rate 2020-03-23 20:40:00 73 /min [facility] Body height 2020-03-23 20:40:00 160 cm [facility] Body weight 2020-03-23 20:40:00 66.225 kg [facility] BMI 2020-03-23 20:40:00 25.86 kg/m2 [facility] Systolic blood 2019-07-16 20:03:00 120 mm[Hg] Univer sity of pressure [facility] Diastolic blood 2019-07-16 20:03:00 85 mm[Hg] Unive rsity of pressure [facility] Heart rate 2019-07-16 20:03:00 82 /min [facility] Body temperature 2019-07-16 20:03:00 37 Maria Eugenia Univ ersity of [facility] Respiratory rate 2019-07-16 20:03:00 16 /min Univ ersity of [facility] Body height 2019-07-16 20:03:00 160 cm [facility] Body weight 2019-07-16 20:03:00 65.545 kg [facility] BMI 2019-07-16 20:03:00 25.60 kg/m2 [facility] Systolic blood 2019-01-14 19:42:00 115 mm[Hg] Univer sity of pressure [facility] Diastolic blood 2019-01-14 19:42:00 76 mm[Hg] [facility] Heart rate 2019-01-14 19:42:00 74 /min [facility] Respiratory rate 2019-01-14 19:42:00 16 /min [facility] Body height 2019-01-14 19:42:00 160 cm [facility] Body weight 2019-01-14 19:42:00 74.208 kg [facility] BMI 2019-01-14 19:42:00 28.98 kg/m2 [facility] Procedures Procedure Date / Time Performing Clinician Source Performed DIABETES TESTING REPORTS 2021-02-22 05:01:00 Doctor Ankur, [facility] Name [facility] POCT HEMOGLOBIN A1C TEST 2021-02-22 00:00:00 [facility] POCT HEMOGLOBIN A1C TEST 2020-11-22 20:14:00 Mali [facility] CONSENT/REFUSAL FOR 2020-09-20 14:17:01 Doctor Ankur, [facility] DIAGNOSIS AND TREATMENT [place] [facility] ASSIGNMENT OF BENEFITS 2020-09-20 14:16:43 Doctor Ankur, [facility] Name [facility] CONSENT FOR CONTRACEPTION 2020-08-17 06:01:00 Doctor Ankur, [facility] [place] [facility] POCT TEST 2020-08-17 00:00:00 Ana Maldonado [facility] US OVARY TORSION 2020-08-15 00:01:30 Idalia Caba [facility] CT ABDOMEN PELVIS W 2020-08-14 23:11:34 Idalia Caba [facility] CONTRAST [facility] MAGNESIUM 2020-08-14 21:53:00 Idalia Caba [facility] COMP. METABOLIC PANEL 2020-08-14 21:53:00 Idalia Caba [facility] ([id number]) [facility] CBC WITH DIFF 2020-08-14 21:53:00 Idalia Caba [facility] URINALYSIS 2020-08-14 21:53:00 Idalia Caba [facility] POCT GLUCOSE (AUTOMATED) 2020-08-14 21:53:00 Idalia Caba [facility] NOTICE OF PRIVACY 2020-08-14 21:07:18 Doctor Unassigned, [facility] [place] [facility] CONSENT/REFUSAL FOR 2020-08-14 21:02:05 Doctor Unassigned, [facility] DIAGNOSIS AND TREATMENT [place] [facility] BASIC METABOLIC PANEL 2020-07-14 22:50:00 Julia Vasquez [facility] (NA, K, CL, CO2, GLUCOSE, Medica l Branch BUN, CREATININE, CA) POCT GLUCOSE (AUTOMATED) 2020-07-14 22:26:00 Karolina Zamora [facility] POCT GLUCOSE (AUTOMATED) 2020-07-14 17:34:00 Karolina Zamora [employer] [facility] POCT GLUCOSE (AUTOMATED) 2020-07-14 13:36:00 Karolina [facility] MAGNESIUM 2020-07-14 11:15:00 Jamshid mary [facility] BASIC METABOLIC PANEL 2020-07-14 11:15:00 Karolina Zamora [facility] (NA, K, CL, CO2, GLUCOSE, Medica l Branch BUN, CREATININE, CA) CBC WITH DIFF 2020-07-14 11:15:00 Sera [facility] POCT GLUCOSE (AUTOMATED) 2020-07-14 09:40:00 Karolina Zamora [facility] of [facility] POCT GLUCOSE (AUTOMATED) 2020-07-14 05:28:00 Karolina Zamora [employer] [facility] POCT GLUCOSE (AUTOMATED) 2020-07-14 01:57:00 [facility] [employer] versity [facility] POCT GLUCOSE (AUTOMATED) 2020-07-13 22:43:00 Karolina Zamora [employer] [facility] POCT GLUCOSE (AUTOMATED) 2020-07-13 17:38:00 [facility] [employer] [facility] POCT GLUCOSE (AUTOMATED) 2020-07-13 13:31:00 [facility]ha [facility] BASIC METABOLIC PANEL 2020-07-13 09:26:00 [facility] (NA, K, CL, CO2, GLUCOSE, Medica l Branch BUN, CREATININE, CA) CBC WITH DIFF 2020-07-13 09:26:00 [facility] GLYCOSYL[facility] HEMOGLOBIN 2020-07-13 09:26:[address] [facility] (A1C) [facility] POCT GLUCOSE (AUTOMATED) 2020-07-13 02:00:00 Sera [facility] URINE CULTURE 2020-07-13 00:21:00 [facility] POCT GLUCOSE (AUTOMATED) 2020-07-12 22:21:00 [facility]) 2020-07-12 17:34:00 [facility] PO[facility] GLUCOSE (AUTOMATED) 2020-07-12 13:36:00 Sera [facility] LIPASE 2020-07-12 05:10:00 Kevin [facility] THYROID STIMULATING 2020-07-12 05:10:00 Sera [facility] HORMONE [facility] BASIC METABOLIC PANEL 2020-07-12 05:10:00 Janelle Brown [facility] (NA, K, CL, CO2, GLUCOSE, Medica l Branch BUN, CREATININE, CA) POCT GLUCOSE (AUTOMATED) 2020-07-12 04:17:00 Idalia Caba [facility] POCT GLUCOSE(AGE >30DAYS) 2020-07-12 04:15:00 [facility] (ID NOW RAPID 2020-07-12 03:00:00 Idalia Caba [facility] TESTING) [facility] LAB ONLY COVID 2020-07-12 03:00:00 Idalia Caba [facility] INTERPRETATION [facility] XR CHEST 1 VW 2020-07-12 02:06:32 Idalia Caba [facility] MAGNESIUM 2020-07-12 02:02:00 Idalia Caba [facility] COMP. METABOLIC PANEL 2020-07-12 02:02:00 Idalia Caba [facility] ([id number]) Medical Branch CBC WITH DIFF 2020-07-12 02:02:00 Idalia Caba [facility] URINALYSIS 2020-07-12 02:02:00 Idalia Caba [facility] AC PANEL 21 + LACTIC ACID 2020-07-12 02:01:00 Idalia Caba [facility] POCT GLUCOSE (AUTOMATED) 2020-07-12 01:59:00 Id[facility]aba [facility] POCT TEST 2020-07-12 01:55:00 Idalia Caba [facility] NOTICE OF PRIVACY 2020-07-11 23:51:26 Doctor Unassigned, [facility] [place] [facility] CONSENT/REFUSAL FOR 2020-07-11 23:48:13 Doctor Unasshowie, [facility] DIAGNOSIS AND TREATMENT [place] [facility] POCT HEMOGLOBIN A1C TEST 2020-06-29 21:47:00 [facility] DIABETES TESTING REPORTS 2020-06-29 06:01:00 Doctor Ankur, [facility] FREE T4 2020-03-24 18:10:00 Mauri [facility] THYROID STIMULATING 2020-03-24 18:10:00 Shelli Hardy [facility] HORMONE [facility] COMP. METABOLIC PANEL 2020-03-24 18:10:00 Shelli Hardy [facility] ([id number]) [facility] LIPID PANEL (97464)(TOTAL 2020-03-24 18:10:00 Shelli Hardy [facility] CHOLESTEROL, [facility] TRIGLYCERIDES, HDL) CBC WITH DIFF 2020-03-24 18:10:00 [facility] REPORTS 2020-03-23 05:01:00 Doctor Ankur, [facility] POCT HEMOGLOBIN A1C TEST 2020-03-23 00:00:00 Shelli Hardy [facility] IMMTRAC2 CONSENT 2019-07-16 06:01:00 Doctor Unassigned, Lun[facility] Name [facility] ASSIGNMENT OF BENEFITS 2019-01-14 19:16:23 Doctor Unassigned, [facility] Name [facility] POCT HEMOGLOBIN A1C TEST 2019-01-14 00:00:00 MauriSandrafernando Nat [facility] Encounters Start End Encounter Admission Attending Care Care Encounter Source Date/Time Date/Time Type Type Clinicians Facility Department ID 2021-04-16 Emergency [facility] [id number] Univers 01:56:37 ity [facility] 2021-04-15 Emergency [facility] [id number] Univers [facility] 2021-10-11 2021-10-11 Outpatient Toni MALDONADO [facility] [id number] Univers 15:45:00 15:45:00 ANA [id number] [facility] 2021-06-28 2021-06-28 Outpatient R MAURI [facility] [id number] Univers 15:00:00 15:00:00 [facility] 2021-06-28 2021-06-28 Outpatient MAURI [facility] [id number] Univers 15:00:00 15:00:00 [place] [id number] [facility] 2021-02-22 2021-02-22 Office Mauri [facility] 1.2.840.114 [id number] Univers 15:28:55 16:13:04 Visit [facility] [id number] it y of [place] [id number] Harvey as Kirill?Blea [phone] Al dical [address] Medical Office Building 2021-02-22 2021-02-22 Outpatient R MAURI [facility] [id number] Univers 15:30:00 15:30:00 [facility] 2021-02-22 2021-02-22 Outpatient R MAURI [facility] [id number] -[id number] Univers 08:00:00 08:00:00 [place] [id number] [facility] 2021-02-22 2021-02-22 Orders Doctor TERESA 1.2.840.114 [id number] Univers 00:00:00 00:00:00 Only Unassigned, LELA [id number] ity of [place] [facility] [id number] [place] as [phone] [address] 2021-01-26 2021-01-26 [facility] [id number] Q-20 Univers 14:00:00 14:00:00 DIANA [id number] ity o [facility] 2021-01-23 2021-01-23 Outpatient [facility] [id number] Univers 16:00:00 16:00:00 JESSICA [id number] ity o [facility] 2021-01-23 2021-01-23 Outpatient [facility] [id number] Univers 16:00:00 16:00:00 JESSICA kendrick o [facility] 2021-01-09 2021-01-09 Telephone [facility] 1.2.840.114 [id number] Univers 00:00:00 00:00:00 Ana Meier [id number] [id number] [phone] Al dical nal [address] [place] [address] 2021-01-02 2021-01-02 Urgent Teresa Bueno [facility] 1.2.840.114 [id number] Univers 17:15:08 17:35:08 Tata Harris [facility] [id number] ity of [place] [id number] [place] as Professio [phone] Al dical nal 0[address] Branch Office Building One 2021-01-02 2021-01-02 Outpatient R [facility] [id number] Univers 17:20:00 17:20:00 [id number] ity [facility] 2021-01-02 2021-01-02 Outpatient [facility] [id number] Univers 17:20:00 17:20:00 TATA [facility] 2020-12-21 2020-12-21 Patient [facility] 1.2.840.114 [id number] Univers 00:00:00 00:00:00 Secure Msg Jessica E SPECIALTY [id number] it[id number] C[place] AT [phone] Al dical VICTORY 072 [facility] 2020-12-12 2020-12-12 Cloth Painter [facility] UNIVERSIT 1.2.840.114 [id number] Univers 15:09:46 15:24:46 Visit AleciaJessica E Y HEALTH [id number] ity of CL[id number] [phone] [facility] [address] [place] 2020-12-12 2020-12-12 Office LUNA Xiao 1.2.267.118 [id number] Univers 14:32:34 15:02:34 Visit Jessica E Y HEALTH [id number] ity [place] CL[id number] [phone] [address] 2020-12-12 2020-12-12 Outpatient [facility] [id number] Univers 14:30:00 14:30:00 JESSICA [id number] ity o f [facility] 2020-12-12 2020-12-12 Office Mist[facility]RE[facility] 1.2.840.114 [id number] Univers 10:19:18 10:55:02 Visit Wonful [facility] [id number] ity of [place] [id number] [place] as Professio [phone] Al dical nal [address] [place] Office Building One 2020-12-12 2020-12-12 Outpatient [facility] [id number] Univers 10:00:00 10:00:00 WONDIFUL ity o f [facility] 2020-11-29 2020-11-29 Patient TaylorRE[facility] 1.2.840.114 [id number] Univers 00:00:00 00:00:00 Secure Msg Mali Meier [id number] [place] [phone] Me dical nal 220 [facility] 2020-11-22 2020-11-22 Cloth Painter 2, Adc Lab [facility] 1.2.840.114 [id number] Univers 16:04:54 16:19:54 Visit Mali Viramontes 350.1.13.10 ity of [place] [phone] [facility] 353 [facility] 2020-11-22 2020-11-22 Office TaylorRE[facility] 1.2.840.114 [id number] Univers 15:03:29 16:02:00 Visit Mali Meier 350.1.13.10 [id number] [phone] [facility] 220 [facility] 2020-11-22 2020-11-22 Outpatient R TAYLOR [facility] [id number] Univers 15:00:00 15:00:00 MALI [facility] 2020-11-22 2020-11-22 Outpatient R MAURI [facility] [id number] Univers 10:00:00 10:00:00 WENTONG [id number] [facility] 2020-11-18 2020-11-18 Refill [facility] 1.2.840.114 [id number] Univers 00:00:00 00:00:00 Wentong [place] 350.1.13.10 i [place] [phone] [address] 2020-11-18 2020-11-18 Refill [facility] 1.2.840.114 [id number] Univers 00:00:00 00:00:00 Wentong [place] 350.1.13.10 i [place] [phone] [facility] 220 [facility] 2020-11-17 2020-11-17 Telephone [facility] 1.2.024.010 [id number] Univers 00:00:00 00:00:00 Wentong [place] 350.1.13.10 [id number] [phone] Al dical nal [address] [place] [address] 2020-11-09 2020-11-09 Outpatient R MAURI [facility] [id number] Univers 16:30:00 16:30:00 SANDRAONG [id number] [facility] 2020-11-09 2020-11-09 Outpatient R MAURI [facility] [id number] Univers 16:30:00 16:30:00 SANDRAONG [facility] 2020-11-07 2020-11-07 Outpatient R DOSS, [facility] [id number] Univers 13:40:00 13:40:00 BRIANNE [id number] [facility] 2020-11-07 2020-11-07 Outpatient [facility] [id number] Univers 13:40:00 13:40:00 BRIANNE [facility] 2020-11-07 2020-11-07 Telephone [facility] [id number] Univers 00:00:00 00:00:00 Shelli Meier 350.1.13.10 [place] [phone] [address] 2020-10-30 2020-10-30 Refill [facility] 1.2.840.114 [id number] Univers 00:00:00 00:00:00 Shelli Meier 350.1.13.10 i [place] [phone] Al dic[address] 2020-10-14 2020-10-14 Outpatient R ROMARIO [facility] [id number] Univers 10:20:00 10:20:00 BRIANNE [id number] [facility] 2020-09-22 2020-09-22 Office Joel [facility] [id number] [id number] Univers 15:53:30 16:44:59 Visit Ana Meier 350.1.13.10 i [place].2.[place] [phone] Al dical nal 134 [facility] 2020-09-22 2020-09-22 Outpatient JOEL [facility] [id number]-20 Univers 15:45:00 15:45:00 ANA [id number] ity [facility] 2020-09-22 2020-09-22 Outpatient R JOEL [facility] [id number] Univers 15:45:00 15:45:00 ANA ity [facility] 2020-09-20 2020-09-20 Orders Doctor TERESA 1.2.840.114 [id number] Univers 00:00:00 00:00:00 Only Unassigned, LELA 350.1.13.10 ity of [facility] 4.2.7.2.686 [place] as [phone] [facility] [address] [place] 2020-09-14 2020-09-14 Outpatient [facility] [id number]-20 Univers 15:45:00 15:45:00 ANA [id number] ity [facility] 2020-09-14 2020-09-14 Letter Clinic, UNIVERSIT [id number] [id number] Univers 00:00:00 00:00:00 (Out) [facility] 350.1.13.10 i ty of Gastroenter CLINICS 4.2.7.2.686 [facility] [phone] [facility] [address] [place] 2020-09-14 2020-09-14 Refill Reynaldo [facility] 1.2.840.114 [id number] Univers 00:00:00 00:00:00 Destini Meier 350.1.13.10 it[place] of [place] [phone] Al dical nal 044 [facility] 2020-09-08 2020-09-08 Refill Rom[facility] 1.2.840.114 [id number] Univers 00:00:00 00:00:00 Brianne Meier 350.1.13.10 it[place] of [place] [phone] Al dical nal 044 [facility] 2020-09-06 2020-09-06 Patient Leonel [facility] 1.2.840.114 [id number] Univers 00:00:00 00:00:00 Outreach Tomas YUE 350.1.13.10 i ty of Eddie [facility] 4.2.7.2.[place] [phone] Al dical [address] [place] 2020-08-31 2020-08-31 Refill Doctor [facility] 1.2.840.114 [id number] Univers 00:00:00 00:00:00 Unassigned, Hardeep 350.1.13.10 ity of [place].2.[place].2.[place] [phone] Al dical nal 044 [facility] 2020-08-25 2020-08-25 Telephone Joel [facility] 1.2.840.114 [id number] Univers 00:00:00 00:00:00 Ana Meier 350.1.13.10 i [place] of [place] [phone] Al dical nal 134 [facility] 2020-08-17 2020-08-17 Outpatient ALEX [facility] [id number] Univers 14:30:00 14:30:00 [facility] [id number] y [facility] 2020-08-17 2020-08-17 Outpatient R ALEX [facility] [id number] Univers 14:30:00 14:30:00 HUMAIR ity [facility] 2020-08-17 2020-08-17 Office [facility] 1.2.840.114 [id number] Univers 14:05:42 14:20:42 Visit [facility] 350.1.13.10 it y of [place] 4.2.7.2.[place] CENTER [phone] [facility] [address] [place] 2020-08-17 2020-08-17 Office JoelRE[facility] [id number] [id number] Univers 10:14:54 11:11:18 Visit Ana Meier 350.1.13.10 i [place] 4.2.7.2.[place] [phone] Al dical nal 134 [facility] 2020-08-17 2020-08-17 Orders Doctor TERESA 1.2.840.114 [id number] Univers 00:00:00 00:00:00 Only Unassigned, LELA 350.1.13.10 ity of [place] [facility] 4.2.7.2.686 Harvey as [phone] [facility] [address] 2020-08-14 2020-08-14 Emergency Idalia Caba [facility] 1.2.840.114 [id number] Univers 15:23:00 20:15:00 Sarah Meier 350.1.13.10 i ty [place] 4.2.7.2.[place] [phone] [facility] 0[address] 2020-08-14 2020-08-14 Orders Doctor TERESA 1.2.840.114 [id number] Univers 00:00:00 00:00:00 Only Unassigned, LELA 350.1.13.10 ity of [place] [facility] 4.2.7.2.686 Harvey as [phone] [facility] 00[address] 2020-08-02 2020-08-02 Telephone Mauri, [facility] 1.2.462.412 [id number] Univers 00:00:00 00:00:00 Wentong MULTISPEC 350.1.13.10 ity of [place] 4.2.7.2.686 [place] [phone] [facility] AND MAME [address] DIABETES CLINIC 2020-07-27 2020-07-27 Cloth Painter 2, Adc Lab [facility] 1.2.840.114 [id number] Univers 14:21:05 14:36:05 Visit Leopoldo Sands 350.1.13.10 ity of [place].2.[place] [phone] Al dical nal 353 [facility] 2020-07-27 2020-07-27 Office Reynaldo [facility] 1.2.840.114 [id number] Univers 13:32:10 14:17:18 Visit Destini Meier 350.1.13.10 ity of [place] 4.2.7.2.[place] [phone] Al dical nal 0[address] Building 2020-07-27 2020-07-27 Outpatient R [facility] [id number]-20 Univers 13:30:00 13:30:00 DESTINI [id number] ity o f [facility] 2020-07-27 2020-07-27 Outpatient R [facility] [id number] Univers 13:30:00 13:30:00 DESTINI ity o f [facility] 2020-07-18 2020-07-18 Telephone [facility] 1.2.840.114 [id number] Univers 00:00:00 00:00:00 Brianne Meier 350.1.13.10 it[place] of [place].2.[place] [phone] Al dical nal [address] Building 2020-07-15 2020-07-15 Transition Roseanna Rodriguez 1.2.840.114 [id number] Univers 00:00:00 00:00:00 of Care Sneha Royal 350.1.13.10 i ty of [place] 4.2.7.2.[place] [phone] [facility] [address] 2020-07-11 2020-07-14 [facility] Greg Idalia Sarah [facility] 1.2.840.1 [id number] Univers 18:23:00 18:30:00 Encounter Janelle Brown 350.1.13.10 ity of Karolina Zamora 4.2.7.2.686 [facility] [phone] [facility] 081 [address] 2020-07-11 2020-07-11 Urgent Provider, [facility] 1.2.840.114 [id number] Univers 17:16:54 17:45:41 Care Madalyn Barton [facility] 350.1.13.10 ity of [place] 4.2.7.2.686 [place] as Professio [phone] Al dical nal [address] Office Building One 2020-07-11 2020-07-11 Outpatient [facility] [id number] Univers 17:20:00 17:20:00 [id number] ity [facility] 2020-07-11 2020-07-11 Outpatient R [facility] [id number] Univers 17:20:00 17:20:00 ity [facility] 2020-07-11 2020-07-11 Refill [facility] 1.2.840.114 [id number] Univers 00:00:00 00:00:00 Shelli [place] 350.1.13.10 i ty [place] 4[place]2.[place].2.[place] [phone] [address] 2020-06-29 2020-06-29 Office [facility] 1.2.840.114 [id number] 14:10:08 15:02:17 Visit Shelli Meier 350.1.13.10 [place] 4.2.7.2.686 Professio [phone] [address] 2020-06-29 2020-06-29 Office [facility] 1.2.840.114 [id number] Univers 14:10:08 15:02:17 Visit Shelli Góme[place] 350.1.13.10 i [place] [phone] [address] 2020-06-29 2020-06-29 [facility] [id number] -[id number] Univers 14:00:00 14:00:00 SHELLI [id number] ity [facility] 2020-06-29 2020-06-29 Outpatient [facility] [id number] Univers 14:00:00 14:00:00 [facility] 2020-06-29 Orders Doctor MOORE 1.2.840.114 [id number] 00:00:00 00:00:00 Only Unassigned, LELA 350.1.13.10 [place] [facility] 4.2.7.2.686 [phone] [id number] 2020-06-29 2020-06-29 Orders Doctor MOORE 1.2.840.114 [id number] Univers 00:00:00 00:00:00 Only Unassigned, LELA 350.1.13.10 ity of [place] [facility] 4.2.7.2.686 [place] as [phone] [address] 2020-04-19 2020-04-19 Outpatient R [facility] [id number] Univers 14:30:00 14:30:00 ity of [facility] 2020-04-19 2020-04-19 Outpatient R [facility] [id number] Univers 14:30:00 14:30:00 ity of [facility] 2020-03-31 2020-03-31 Telephone [facility] [id number] Univers 00:00:00 00:00:00 Shelli Meier 350.1.13.10 [place] [phone] [facility] [address] [facility] 2020-03-24 2020-03-24 Cloth Painter 2, Adc Lab [facility] 1.2.840.114 [id number] Univers 13:07:42 13:22:42 Visit Shelli Hardy 350.1.13.10 it[place] [phone] [facility] 353 [facility] 2020-03-24 2020-03-24 Outpatient R [facility] [id number] -[id number] Univers 13:00:00 13:00:00 ity [facility] 2020-03-24 2020-03-24 Outpatient R MAURI [facility] [id number] Univers 13:00:00 13:00:00 SANDRAONG ity [facility] 2020-03-23 2020-03-23 Office [facility] 1.2.840.114 [id number] Univers 15:05:55 16:03:38 Visit Shelli Meier 350.1.13.10 i [place] [phone] [facility] [address] [facility] 2020-03-23 2020-03-23 Out[facility] [id number] -[id number] Univers 15:00:00 15:00:00 SHELLI [id number] ity of [facility] 2020-03-23 2020-03-23 Outpatient R MAURI [facility] [id number] Univers 15:00:00 15:00:00 [place] ity [facility] 2020-03-23 2020-03-23 Orders Doctor TERESA 1.2.840.114 [id number] Univers 00:00:00 00:00:00 Only Unassigned, LELA 350.1.13.10 ity [facility] 4.2.7.2.686 [place] as [phone] [address] 2020-01-12 2020-01-12 Outpatient [facility] [id number] -[id number] Univers 14:00:00 14:00:00 SHELLI [id number] ity of [facility] 2020-01-12 2020-01-12 Outpatient R MAURI [facility] [id number] Univers 14:00:00 14:00:00 [place] [facility] 2020-01-02 2020-01-02 Refill [facility] 1.2.840.114 [id number] Univers 00:00:00 00:00:00 Shelli Meier 350.1.13.10 i ty [facility] [place] [phone] [facility] [address] [facility] 2019-10-15 2019-10-15 [facility] 1.2.840.114 [id number] Univers 07:50:42 15:08:51 ne Visit Brianne Meier 350.1.13.10 ity of [place] [phone] [facility] [address] [facility] 2019-10-15 2019-10-15 Outpatient R ROMARIO [facility] [id number] Univers 09:20:00 09:20:00 BRIANNE sultanay [facility] 2019-09-08 2019-09-08 Telemedici [facility] 1.2.840.114 [id number] Univers 08:08:55 17:01:13 ne Visit Shelli Meier 350.1.13.10 it[place] of [place] [phone] Al dical nal [address] [facility] 2019-09-08 2019-09-08 Outpatient R MAURI [facility] [id number] Univers 13:30:00 13:30:00 SANDRAONG ity of [facility] 2019-08-20 2019-08-20 Refill Mauri [facility] 1.2.840.114 [id number] Univers 00:00:00 00:00:00 Shelli Meier 350.1.13.10 i ty [place] [phone] [facility] [address] [facility] 2019-07-16 2019-07-16 Office Romario WYMANJINDER 1.2.840.114 [id number] Univers 13:12:16 13:52:16 Visit Brianne Meier 350.1.13.10 ity of [place] [phone] [facility] [address] [facility] 2019-07-16 2019-07-16 Orders Doctor TERESA 1.2.840.114 [id number] Univers 00:00:00 00:00:00 Only Unassigned, LELA 350.1.13.10 ity of [place] [facility] 4.2.7.2.686 [place] as [phone] [facility] [address] 2019-01-27 2019-01-27 Telephone [facility] [id number] Univers 00:00:00 00:00:00 Shelli Meier 350.1.13.10 i ty [place] [phone] [facility] [address] [facility] 2019-01-26 2019-01-26 Patient Mauri [facility] 1.2.840.114 [id number] Univers 00:00:00 00:00:00 Secure Msg Shelli MULTISPEC 350.1.13.10 ity of [facility] 4.2.7.2.[place] [phone] [facility] [place] [address] [facility] 2019-01-19 2019-01-19 Telephone [facility] [id number] Univers 00:00:00 00:00:00 Shelli Meier 350.1.13.10 i ty [place] [phone] [address] 2019-01-15 2019-01-15 Cloth Painter 1, Adc Lab [facility] 1.2.840.114 [id number] Univers 08:16:49 08:31:49 Visit Shelli Hardy 350.1.13.10 ity of [place] [phone] [facility] [address] [place] 2019-01-15 2019-01-15 Telephone [facility] [id number] Univers 00:00:00 00:00:00 Shelli Meier 350.1.13.10 i ty [place] [phone] [address] 2019-01-14 2019-01-14 Office [facility] 1.2.840.114 [id number] Univers 14:22:11 15:37:35 Visit Shelli Meier 350.1.13.10 i ty [place] [phone] [address] 2019-01-14 2019-01-14 Orders Doctor TERESA 1.2.840.114 [id number] Univers 00:00:00 00:00:00 Only Unassigned, LELA 350.1.13.10 ity of [place] [facility] 4.2.7.2.686 Harvey as [phone] [facility] [address] 2019-01-14 2019-01-14 Letter Doctor TERESA 1.2.840.114 [id number] Univers 00:00:00 00:00:00 (Out) Unassigned, LELA 350.1.13.10 ity of [place] [facility] 4.2.7.2.686 Harvey as [phone] [facility] [address] [place] Results Test Description Test Time Test Comments Results Result Comments Source POCT HEMOGLOBIN A1C TEST 2021-02-22 20:49:00 Test Item Value Reference Range Interpretation Comme nts POCT HBA1C (test code = 4548-4) 8.9 % 4-6 A Lab Interpretation (test code = 57146-6) Abnormal [facility] HEMOGLOBIN A1C [id number] 20:15:00 Test Item Value Reference Range Interpretation Comments POCT HBA1C (test code = 4548-4) 9.6 % 4-6 A Lab Interpretation (test code = Abnormal 11073-0) [facility] HEMOGLOBIN A1C [id number] 20:15:00 Test Item Value Reference Range Interpretation Comments POCT HBA1C (test code = 4548-4) 9.6 % 4-6 A Lab Interpretation (test code = Abnormal 30713-1) [id number] 17:02:00 Test Item Value Reference Range Interpretation Comments POCT PREG (test code = 1605) Negative On board controls acceptable with C Yes Line (test code = 3574) POCT PREG LOT # (test code = 3575) POCT PREG TEST DATE (test code = 3576) Lab Interpretation (test code = Normal 18603-7) [facility] [id number] 17:02:00 Test Item Value Reference Range Interpretation Comments POCT PREG (test code = 1605) Negative On board controls acceptable with C Yes Line (test code = 3574) POCT PREG LOT # (test code = 3575) POCT PREG TEST DATE (test code = 3576) Lab Interpretation (test code = Normal 08364-8) [facility] [id number] 17:02:00 Test Item Value Reference Range Interpretation Comments POCT PREG (test code = 1605) Negative On board controls acceptable with C Yes Line (test code = 3574) POCT PREG LOT # (test code = 3575) POCT PREG TEST DATE (test code = 3576) Lab Interpretation (test code = Normal 64435-3) [facility] [id number] 02:12:34 Enlarged right ovary containing a 3.6 complex cystic mass with internalseptation with associated small complex pelvic fluid. Differentialdiagnosis include ruptured hemorrhagic cyst as well as a tubo-ovarianabscess. No ovarian torsion. Preliminary Report Dictated by Resident: Amara Lima I,Yadira Garcia MD., have reviewed this study and agree with theabove report.OVARIAN TORSION ULTRASOUND HISTORY: rlq pain TECHNIQUE: Pelvic ultrasound performed using transabdominal andtransvaginal approach with grayscale, color, and spectral Doppler imagesobtained. COMPARISON: Same day CT 08/14/2020 FINDINGS: UTERUS: The uterus measures 7.8 x 4.1 x 6.0 cm cm. The endometrium ishomogeneous and measures 1 mm in thickness correlating to secretory phase. RIGHT OVARY: The right ovary measures 6.8 x 5.7 x 5.1 cm (103 mL). Theright ovary contains a hypoechoic thick-walled cystic structure withperipheral rim of vascularity that identified on image 73 and 76, bettercharacterized on prior CT. A larger thick- walled primarily hypoechoiccystic structure measures 3.6 x 2.8 x 3.3 cm with low-level internalechoes. LEFT OVARY: The left ovary measures 3.0 x 1.9 x 1.5 cm (4 mL) with normalsonographic appearance. Normal arterial and venous waveforms were identified at both ovaries.Increased vascularity of the right ovary. Small volume fluid with internal echoes are noted. [facility], Radiant Results Inft User - 0 08/14/2020 8:13 PM CSTOVARIAN TORSION ULTRASOUNDHISTORY: rlq pain TECHNIQUE: Pelvic ultrasound performed using transabdominal andtransvaginal approach with grayscale, color, and spectral Doppler imagesobtained.COMPARISON: Same day CT 08/14/2020FINDINGS: UTERUS: The uterus measures 7.8 x 4.1 x 6.0 cm cm. The endometrium ishomogeneous and measures 1 mm in thickness correlating to secretory phase.RIGHT OVARY: The right ovary measures 6.8 x 5.7 x 5.1 cm (103 mL). Theright ovary contains a hypoechoic thick-walled cystic structure withperipheral rim of vascularity that identified on image 73 and 76, better characterized on prior CT. A larger thick-walled primarily hypoechoiccystic structure measures 3.6 x2.8 x 3.3 cm with low-level internalechoes.LEFT OVARY: The left ovary measures 3.0 x 1.9 x 1.5 cm (4mL) with normalsonographic appearance.Normal arterial and venous waveforms were identified at both ov negro.Increased vascularity of the right ovary.Small volume fluid with internal echoes are noted. IMPRESSIONEnlarged right ovary containing a 3.6 complex cystic mass with internalseptation with associated small complex pelvic fluid. Differentialdiagnosis include ruptured hemorrhagic cyst as well as a tubo- ovarianabscess.No ovarian torsion.Preliminary Report Dictated by Resident: Amara Zapata, Yadira Gonzalez MD., have reviewed this study and agree with theabove report.[facility] W [id number] 00:33:33The appendix is not visible. There is free fluid adjacent tothe cecum but also free fluid in the pelvis as well as a 3.5 cm and 1 cmcomplex right ovarian cyst. There is also some free fluid adjacent to theliver. Given the amount of fluid however favor ovarian etiology rather thanappendicitis.2. Fluid-filled loops of small bowel probably a mild reactive ileus.3. No hydronephrosis. RL: 5611 AFC: [id number] END OF REPORT Ordering Physician: Idalia HURLEY Clinical Indication: RLQ abdominal pain, appendicitis suspected (Age >=14y) Additional Clinical Information: Comparison: None Technique: CT scan of the abdomen and pelvis obtained with IV contrast. CTScan was performed using ALARA principles. ? Technical Quality: Good Findings: There are noinfiltrates or effusions the lung bases. The heart size is normal. The risk enhances normally. Thereis a small amount of ascites adjacent tothe anterior liver. Measures approximately 15 mm in thickness. Adrenal glands and the pancreas are normal. The kidneys enhance normally.There is no acute process. There are fluid-filled loops of normal caliber small bowel. There is alsosmall amount of hyperdense fluid in right lower quadrant. In the pelvis, there is a dominant right ovarian cyst. This measures 3.5cm. There is fluid in the endometrial cavity. There is also moderate hyperdensefree fluid in the cul-de-sac. The terminal ileum is normal in appearance. The appendix is not visible.Given the amount of fluid in the right upper quadrant and the pelvis, favorovarian etiology rather than appendicitis. [facility], Radiant Results Inft User - 08/14/2020 6:34 PM CSTOrdering Physician: Idalia MOREUClinical Indication: RLQ abdominal pain, appendicitis suspected (Age >=14y) Additional Clinical Information:Comparison: NoneTechnique: CT scan of the abdomen and pelvis obtained with IV contrast. CTScan was performed using ALARA principles. Technical Quality: GoodFindings: There are no infiltrates or effusions the lung bases.The heart size is normal.The risk enhances normally. There is a small amount of ascites adjacent tothe anterior liver. Measures approximately 15 mm in thickness.Adrenal glands and the pancreas are normal. The kidneys enhance normally.There is no acute process.There are fluid-filled loops of normal caliber small bowel. There is alsosmall amount of hyperdense fluid in right lower quadrant.In the pelvis, there is a dominant right ovarian cyst. This measures 3.5cm.There is fluid in the endometrial cavity. There is also moderate hyperdensefree fluid in the cul-de-sac.The terminal ileum is normal in appearance. The appendix is not visible.Given the amount of fluid in the right upper quadrant and the pelvis, favorovarian etiology rather than appendicitis.IMPRESSIONThe appendix is not visible. There is free fluid adjacent tothe cecum but also free fluid in the pelvis as well as a 3.5 cm and 1 cmcomplex right ovarian cyst. There is also some free fluid adjacent to theliver. Given the amount of fluid however favor ovarian etiology rather thanappendicitis.2. Fluid-filled loops of small bowel probably a mild reactive ileus.3. No hydronephrosis.RL: 5611AFC: [id number] OF REPORTElectronicallysigned by [place] Cristobal at 08/14/2020 6:33 PMUnTexas Vista Medical CenterCOMP. METABOLIC PANEL (24547)2020-08-14 22:36:00 Test Item Value Reference Range Interpretation Comments NA (test code = 133 mmol/L 135-145 L 0071583247) K (test code = 4.2 mmol/L 3.5-5 4540685564) CL (test code = 97 mmol/L 98-108 L 2546272068) CO2 TOTAL (test code = 25 mmol/L 23-31 6647566110) AGAP (test code = 2-16 4347550393) BUN (test code = 17 mg/dL 7-23 7905879159) GLUCOSE (test code = 342 mg/dL 70-110 H 1617207971) CREATININE (test code = 0.61 mg/dL 0.5-1.04 4183225645) TOTAL BILI (test code = 0.9 mg/dL 0.1-1.5 1240528456) CALCIUM (test code = 9.4 mg/dL 8.6-10.6 3348942554) T PROTEIN (test code = 8.2 g/dL 6.3-8.2 9282152611) ALBUMIN (test code = 5.0 g/dL 3.5-5 8989767067) ALK PHOS (test code = 97 U/L 34-122 3849730778) ALTv (test code = 14 U/L 5-35 1742-6) AST(SGOT) (test code = 21 U/L 13-40 5852146785) eGFR Calculation mL/min/1.73m2 (Non-) (test code = 3158642245) eGFR Calculation mL/min/1.73m2 () (test code = 8590577875) EARL (test code = EARL) Association of Glomerular Filtration Rate (GFR) and Staging of Kidney Disease* + --+ --+ ------+| GFR (mL/min/1.73 m2) ?| With Kidney Damage ?| ?Without Kidney Damage+ --------+ --------+ +| ?>90 ?| ?Stage one ?| ? Normal ?+ ---+ ---+ -------+| ?60-89 ?| ?Stage two ?| ? Decreased GFR ? + --+ --+ ------+| ?30-59 ?| ?Stage three ?| ? Stage three ? + --+ --+ ------+| ?15-29 ?| ?Stage four ? | ? Stage four ?+ ---+ ---+ -------+| ?<15 (or dialysis) ? ?| ?Stage five ? | ? Stage five ?+ ---+ ---+ -------+ *Each stage assumes the associated GFR level has been in effect for at least three months. ?Stages 1 to 5, with or without kidney disease, indicate chronic kidney disease. Notes: Determination of stages one and two (with eGFR >59mL/min/1.73 m2) requires estimation of kidney damage for at least three months as defined by structural or functional abnormalities of the kidney, manifested by either:Pathological abnormalities or Markers of kidney damage (including abnormalities in the composition of the blood or urine or abnormalities in imaging tests). Lab Interpretation Abnormal (test code = 30010-1) [facility]2021-[facility]-28 22:35:00 Test Item Value Reference Range Interpretation Comments MAGNESIUM (test code = 6676771738) 2.0 mg/dL 1.7-2.4 Lab Interpretation (test code = Normal 34373-8) [facility]IS2021-02-28 22:27:00 Test Item Value Reference Range Interpretation Comments APPEARANCE (test code = Clear Clear 8853441147) COLOR (test code = Yellow Yellow 4829645017) PH (test code = 4.8-8.0 3306819801) SP GRAVITY (test code = 1.003-1.030 9986529453) GLU U QUAL (test code = 500 mg/dL Normal A 5579487605) BLOOD (test code = Negative Negative 4815171122) KETONES (test code = 20 mg/dL Negative A 6926948031) PROTEIN (test code = Negative Negative 2887-8) UROBILIN (test code = Normal Normal 4697061196) BILIRUBIN (test code = Negative Negative 2207420495) NITRITE (test code = Negative Negative 8779714656) LEUK AISHWARYA (test code = 75/uL Negative A 5446118386) RBC/HPF (test code = See_Comment H [Autom ated message] 9083557350) The system [employer] generated this result transmit [place] reference range : 0 - 3 HPF. The refe rence range was not u sed to interpret th is result as normal/abnormal . WBC/HPF (test code = See_Comment H [Autom ated message] 8944271629) The system [employer] generated this result transmit [place] reference range : 0 - 5 HPF. The refe rence range was not u sed to interpret th is result as normal/abnormal . BACTERIA (test code = Few Negative A 7466427943) SQ EPITH (test code = HPF 6627113097) Lab Interpretation (test Abnormal code = 01656-0) [facility] WITH [id number] 22:23:00 Test Item Value Reference Range Interpretation Comments WBC (test code = See_Comment H [Automated 8390-2) message] The sy stem which generated this result transmitted reference range : 4.30 - 11.10 10*3/?L. The reference range was not used to interpret this result as normal/abnormal . RBC (test code = See_Comment [Automated 789-8) message] The sy stem which generated this result transmitted reference range : 3.93 - 5.25 10*6/?L. The reference range was not used to interpret this result as normal/abnormal . HGB (test code = 12.7 g/dL 11.6-15 718-7) HCT (test code = 38.7 % 35.7-45.2 4544-3) MCV (test code = 82.3 fL 80.6-95.5 787-2) MCH (test code = 27.0 pg 25.9-32.8 785-6) MCHC (test code = 32.8 g/dL 31.6-35.1 786-4) RDW-SD (test code = 38.5 fL 39-49.9 L 17219-4) RDW-CV (test code = 12.8 % 12-15.5 788-0) PLT (test code = See_Comment [Automated 777-3) message] The sy stem which generated this result transmitted reference range : 166 - 358 10*3/ ?L. The reference r laci was not used to interpret this result as normal/abnormal . MPV (test code = 11.0 fL 9.5-12.9 73000-6) IPF % (test code = 10.2 % 1.3-7.7 H Platelet count 9832280976) measured by fluorescence method. NRBC/100 WBC (test See_Comment [Automat ed code = 2230945105) message] The system which generated this result transmitted reference range : 0.0 - 10.0 /100 WBCs. The refer ence range was not u sed to interpret th is result as normal/abnormal . NRBC x10^3 (test code <0.01 See_Comment [Auto mated = 8010808672) message] The s ystem which generated this result transmitted reference range : 10*3/?L. The reference range was not used to interpret this result as normal/abnormal . GRAN MAT (NEUT) % 72.6 % (test code = 770-8) IMM GRAN % (test code 0.60 % = 7511603023) LYMPH % (test code = 19.6 % 736-9) MONO % (test code = 5.7 % 5905-5) EOS % (test code = 0.9 % 713-8) BASO % (test code = 0.6 % 706-2) GRAN MAT x10^3(ANC) 8.50 10*3/uL 1.88-7.09 H (test code = 0930136872) IMM GRAN x10^3 (test 0.07 10*3/uL 0-0.06 H code = 4654666631) LYMPH x10^3 (test code 2.30 10*3/uL 1.32-3.29 = 731-0) MONO x10^3 (test code 0.67 10*3/uL 0.33-0.92 = 742-7) EOS x10^3 (test code = 0.10 10*3/uL 0.03-0.39 711-2) BASO x10^3 (test code 0.07 10*3/uL 0.01-0.07 = 704-7) Lab Interpretation Abnormal (test code = 08090-1) [facility] GLUCOSE (AUTOMATED)2020-08-14 21:59:00 Test Item Value Reference Range Interpretation Comments POCT GLU (test code = 6188318103) 321 mg/dL 70-110 H Lab Interpretation (test code = Abnormal 33659-6) [facility] GLUCOSE(AGE >30DAYS)2020-08-14 21:53:00 Test Item Value Reference Range Interpretation Comments POCT Glu (age>30days) (test code = 321 mg/dL 70-110 A 3342) Lab Interpretation (test code = Abnormal 67939-8) [facility] METABOLIC PANEL (NA, K, CL, CO2, GLUCOSE, BUN, CREATININE, CA)2020-07-14 23:35:00 Test Item Value Reference Range Interpretation Comments NA (test code = 136 mmol/L 135-145 7084764097) K (test code = 3.9 mmol/L 3.5-5 5233301649) CL (test code = 99 mmol/L 98-108 5529425250) CO2 TOTAL (test code = 27 mmol/L 23-31 1745452320) AGAP (test code = 2-16 3723043545) BUN (test code = 6 mg/dL 7-23 L 0191459468) GLUCOSE (test code = 209 mg/dL 70-110 H 8526721923) CREATININE (test code = 0.46 mg/dL 0.5-1.04 L 4013312532) CALCIUM (test code = 8.3 mg/dL 8.6-10.6 L 0580623799) eGFR Calculation mL/min/1.73m2 (Non-) (test code = 3347266289) eGFR Calculation mL/min/1.73m2 () (test code = 3226122138) EARL (test code = EARL) Association of Glomerular Filtration Rate (GFR) and Staging of Kidney Disease* + --+ --+ ------+| GFR (mL/min/1.73 m2) ?| With Kidney Damage ?| ?Without Kidney Damage+ --------+ --------+ +| ?>90 ?| ?Stage one ?| ? Normal ?+ ---+ ---+ -------+| ?60-89 ?| ?Stage two ?| ? Decreased GFR ? + --+ --+ ------+| ?30-59 ?| ?Stage three ?| ? Stage three ? + --+ --+ ------+| ?15-29 ?| ?Stage four ? | ? Stage four ?+ ---+ ---+ -------+| ?<15 (or dialysis) ? ?| ?Stage five ? | ? Stage five ?+ ---+ ---+ -------+ *Each stage assumes the associated GFR level has been in effect for at least three months. ?Stages 1 to 5, with or without kidney disease, indicate chronic kidney disease. Notes: Determination of stages one and two (with eGFR >59mL/min/1.73 m2) requires estimation of kidney damage for at least three months as defined by structural or functional abnormalities of the kidney, manifested by either:Pathological abnormalities or Markers of kidney damage (including abnormalities in the composition of the blood or urine or abnormalities in imaging tests). Lab Interpretation Abnormal (test code = 26569-2) [facility] GLUCOSE (AUTOMATED)2020-07-14 22:34:00 Test Item Value Reference Range Interpretation Comments POCT GLU (test code = 1094439181) 179 mg/dL 70-110 H Lab Interpretation (test code = Abnormal 61936-9) [facility] GLUCOSE (AUTOMATED)2020-07-14 17:41:00 Test Item Value Reference Range Interpretation Comments POCT GLU (test code = 8182368702) 209 mg/dL 70-110 H Lab Interpretation (test code = Abnormal 16250-3) [facility] GLUCOSE (AUTOMATED)2020-07-14 13:41:00 Test Item Value Reference Range Interpretation Comments POCT GLU (test code = 3964927639) 168 mg/dL 70-110 H Lab Interpretation (test code = Abnormal 59879-5) [facility] [id number] 13:30:00 Test Item Value Reference Range Interpretation Comments URINE CULTURE (test 10,000 - 100,000 CFU/mL code = 630-4) mixed aerobic organisms - suggests endogenous microbial contamination [facility] 13:18:00 Test Item Value Reference Range Interpretation Comments MAGNESIUM (test code = 8580287655) 2.1 mg/dL 1.7-2.4 Lab Interpretation (test code = Normal 15918-1) [facility] (NA, K, CL, CO2, GLUCOSE, BUN, CREATININE, CA)2020-07-14 11:53:00 Test Item Value Reference Range Interpretation Comments NA (test code = 136 mmol/L 135-145 3000319289) K (test code = 2.9 mmol/L 3.5-5 LL 6770191300) CL (test code = 101 mmol/L 98-108 8887579272) CO2 TOTAL (test code = 29 mmol/L 23-31 1581015083) AGAP (test code = 2-16 9250576285) BUN (test code = 7 mg/dL 7-23 4905562198) GLUCOSE (test code = 199 mg/dL 70-110 H 7599415355) CREATININE (test code = 0.45 mg/dL 0.5-1.04 L 0542916826) CALCIUM (test code = 8.0 mg/dL 8.6-10.6 L 8513588624) eGFR Calculation mL/min/1.73m2 (Non-) (test code = 0056905510) eGFR Calculation mL/min/1.73m2 () (test code = 4882398983) EARL (test code = EARL) Association of Glomerular Filtration Rate (GFR) and Staging of Kidney Disease* + --+ --+ ------+| GFR (mL/min/1.73 m2) ?| With Kidney Damage ?| ?Without Kidney Damage+ --------+ --------+ +| ?>90 ?| ?Stage one ?| ? Normal ?+ ---+ ---+ -------+| ?60-89 ?| ?Stage two ?| ? Decreased GFR ? + --+ --+ ------+| ?30-59 ?| ?Stage three ?| ? Stage three ? + --+ --+ ------+| ?15-29 ?| ?Stage four ? | ? Stage four ?+ ---+ ---+ -------+| ?<15 (or dialysis) ? ?| ?Stage five ? | ? Stage five ?+ ---+ ---+ -------+ *Each stage assumes the associated GFR level has been in effect for at least three months. ?Stages 1 to 5, with or without kidney disease, indicate chronic kidney disease. Notes: Determination of stages one and two (with eGFR >59mL/min/1.73 m2) requires estimation of kidney damage for at least three months as defined by structural or functional abnormalities of the kidney, manifested by either:Pathological abnormalities or Markers of kidney damage (including abnormalities in the composition of the blood or urine or abnormalities in imaging tests). Lab Interpretation Abnormal (test code = 15368-8) [facility] with [id number] 11:25:00 Test Item Value Reference Range Interpretation Comments WBC (test code = See_Comment [Automated 5590-2) message] The sy stem which generated this result transmitted reference range : 4.30 - 11.10 10*3/?L. The reference range was not used to interpret this result as normal/abnormal . RBC (test code = See_Comment [Automated 789-8) message] The sy stem which generated this result transmitted reference range : 3.93 - 5.25 10*6/?L. The reference range was not used to interpret this result as normal/abnormal . HGB (test code = 10.8 g/dL 11.6-15 L 718-7) HCT (test code = 33.2 % 35.7-45.2 L 4544-3) MCV (test code = 83.4 fL 80.6-95.5 787-2) MCH (test code = 27.1 pg 25.9-32.8 785-6) MCHC (test code = 32.5 g/dL 31.6-35.1 786-4) RDW-SD (test code = 37.3 fL 39-49.9 L 66001-5) RDW-CV (test code = 12.2 % 12-15.5 788-0) PLT (test code = See_Comment [Automated 777-3) message] The sy stem which generated this result transmitted reference range : 166 - 358 10*3/ ?L. The reference r laci was not used to interpret this result as normal/abnormal . MPV (test code = 11.3 fL 9.5-12.9 27748-9) NRBC/100 WBC (test See_Comment [Automat ed code = 1328159361) message] The system which generated this result transmitted reference range : 0.0 - 10.0 /100 WBCs. The refer ence range was not u sed to interpret th is result as normal/abnormal . NRBC x10^3 (test code <0.01 See_Comment [Auto mated = 7765740883) message] The s ystem which generated this result transmitted reference range : 10*3/?L. The reference range was not used to interpret this result as normal/abnormal . GRAN MAT (NEUT) % 59.3 % (test code = 770-8) IMM GRAN % (test code 0.40 % = 6832197615) LYMPH % (test code = 30.0 % 736-9) MONO % (test code = 8.1 % 5905-5) EOS % (test code = 1.4 % 713-8) BASO % (test code = 0.8 % 706-2) GRAN MAT x10^3(ANC) 4.61 10*3/uL 1.88-7.09 (test code = 8667485254) IMM GRAN x10^3 (test 0.03 10*3/uL 0-0.06 code = 0821678766) LYMPH x10^3 (test code 2.33 10*3/uL 1.32-3.29 = 731-0) MONO x10^3 (test code 0.63 10*3/uL 0.33-0.92 = 742-7) EOS x10^3 (test code = 0.11 10*3/uL 0.03-0.39 711-2) BASO x10^3 (test code 0.06 10*3/uL 0.01-0.07 = 704-7) Lab Interpretation Abnormal (test code = 65316-3) [facility] GLUCOSE (AUTOMATED)2020-07-14 09:47:00 Test Item Value Reference Range Interpretation Comments POCT GLU (test code = 8368371406) 175 mg/dL 70-110 H Lab Interpretation (test code = Abnormal 14393-1) [facility] GLUCOSE (AUTOMATED)2020-07-14 05:50:00 Test Item Value Reference Range Interpretation Comments POCT GLU (test code = 0061552529) 164 mg/dL 70-110 H Lab Interpretation (test code = Abnormal 26459-1) [facility] Center[facility] ONLY COVID [id number] 03:35:00COVID DMT InterpretationInterpretation/Recommendations: Molecular NAAT Tests for Active Infection with the SARS-CoV-2 Virus: This result indicates that the patient has tested negative on one occasion for the SARS-CoV-2 virus that causes COVID-19 illness. This most likely indicates that the patient does not have an active infection with the SARS-CoV-2 virus. However, infection is not completely ruled out as the false negative rate for molecular NAAT testing using a nasopharyngeal sample can be up to 30%, mostly dependent on the timing of sample collection in relation to illness onset and any deficiencies in sampling techniques. If the patient has symptoms concerning for COVID-19 illness, a repeat NAAT test (PCR, Rapid ID Now, etc.) should be performed, at which time the SARS-CoV-2 virus - if present - may have reached a detectable viral load (usually peaking by the end of the first week of symptoms). Tests for IgM and/or IgG Antibodies to SARS-CoV-2 Virus: Testing for IgM and IgG antibodies 1-3weeks after illness onset will indicate whether the patient has produced antibodies to the virus. Atthis time, it is not known if the production of antibodies - specifically IgG antibodies - indicateswhether the patient is immune to future infections with the SARS-CoV-2 virus. Interpretation Result Comments:These interpretation comments are based upon all COVID-19 testing the patient has had at [facility], including molecular NAATtesting (more commonly known as PCR testing and Rapid ID Now testing) and antibody testing. It does not take into account any testing that a patient has had outside of the [facility] medical record. [facility] LABORATORY SERVICESCOVID PmiuzfoDHSL-RmT-3 Rapid ID NOW (no units) ? ? Date ? Value ? 07/11/2020 ? Not Detected ? [facility]2020-07-14 02:14:00 Test Item Value Reference Range Interpretation Comments POCT GLU (test code = 1677808127) 199 mg/dL 70-110 H Lab Interpretation (test code = Abnormal 59491-0) [facility] GLUCOSE (AUTOMATED)2020-07-14 02:14:00 Test Item Value Reference Range Interpretation Comments POCT GLU (test code = 9294350776) 177 mg/dL 70-110 H Lab Interpretation (test code = Abnormal 72532-8) [facility] GLUCOSE (AUTOMATED)2020-07-13 17:41:00 Test Item Value Reference Range Interpretation Comments POCT GLU (test code = 5307033690) 175 mg/dL 70-110 H Lab Interpretation (test code = Abnormal 18688-7) [facility] CenterGLYCOSYLATED HEMOGLOBIN (A1C)2020-07-13 16:23:00 Test Item Value Reference Range Interpretation Comments HGB A1C (test code = 8.9 % 4-6 H 4548-4) EARL (test code = EARL) %A1C (NGSP) Interpretation (ADA)4.8-5.6 ? ? Normal or (Non-Diabetic Range)5.7-6.4 ? ? Increased Risk (Pre-Diabetic)>6.5 ?Diabetes Indicated Lab Interpretation Abnormal (test code = 21758-3) [facility]2020-07-13 13:42:00 Test Item Value Reference Range Interpretation Comments POCT GLU (test code = 1509849401) 181 mg/dL 70-110 H Lab Interpretation (test code = Abnormal 18660-2) [facility] Center[facility] Met[facility] Panel (NA, K, CL, CO2, GLUCOSE, BUN, CREATININE, CA)2020-07-13 11:32:00 Test Item Value Reference Range Interpretation Comments NA (test code = 140 mmol/L 135-145 4814655942) K (test code = 3.3 mmol/L 3.5-5 L 7463814545) CL (test code = 104 mmol/L 98-108 0026949348) CO2 TOTAL (test code = 29 mmol/L 23-31 5564975129) AGAP (test code = 2-16 4014998990) BUN (test code = 11 mg/dL 7-23 7161395503) GLUCOSE (test code = 189 mg/dL 70-110 H 2003803811) CREATININE (test code = 0.55 mg/dL 0.5-1.04 5722805758) CALCIUM (test code = 8.2 mg/dL 8.6-10.6 L 9301536266) eGFR Calculation mL/min/1.73m2 (Non-) (test code = 4799365636) eGFR Calculation mL/min/1.73m2 () (test code = 5963903019) EARL (test code = EARL) Association of Glomerular Filtration Rate (GFR) and Staging of Kidney Disease* + --+ --+ ------+| GFR (mL/min/1.73 m2) ?| With Kidney Damage ?| ?Without Kidney Damage+ --------+ --------+ +| ?>90 ?| ?Stage one ?| ? Normal ?+ ---+ ---+ -------+| ?60-89 ?| ?Stage two ?| ? Decreased GFR ? + --+ --+ ------+| ?30-59 ?| ?Stage three ?| ? Stage three ? + --+ --+ ------+| ?15-29 ?| ?Stage four ? | ? Stage four ?+ ---+ ---+ -------+| ?<15 (or dialysis) ? ?| ?Stage five ? | ? Stage five ?+ ---+ ---+ -------+ *Each stage assumes the associated GFR level has been in effect for at least three months. ?Stages 1 to 5, with or without kidney disease, indicate chronic kidney disease. Notes: Determination of stages one and two (with eGFR >59mL/min/1.73 m2) requires estimation of kidney damage for at least three months as defined by structural or functional abnormalities of the kidney, manifested by either:Pathological abnormalities or Markers of kidney damage (including abnormalities in the composition of the blood or urine or abnormalities in imaging tests). Lab Interpretation Abnormal (test code = 67081-0) [facility] with Kpdrjbjcnvlw9747-88-83 10:58:00 Test Item Value Reference Range Interpretation Comments WBC (test code = See_Comment [Automated 4609-2) message] The sy stem which generated this result transmitted reference range : 4.30 - 11.10 10*3/?L. The reference range was not used to interpret this result as normal/abnormal . RBC (test code = See_Comment [Automated 651-8) message] The sy stem which generated this result transmitted reference range : 3.93 - 5.25 10*6/?L. The reference range was not used to interpret this result as normal/abnormal . HGB (test code = 11.3 g/dL 11.6-15 L 718-7) HCT (test code = 34.4 % 35.7-45.2 L 4544-3) MCV (test code = 84.7 fL 80.6-95.5 787-2) MCH (test code = 27.8 pg 25.9-32.8 785-6) MCHC (test code = 32.8 g/dL 31.6-35.1 786-4) RDW-SD (test code = 40.0 fL 39-49.9 62584-1) RDW-CV (test code = 12.9 % 12-15.5 788-0) PLT (test code = See_Comment [Automated 777-3) message] The sy stem which generated this result transmitted reference range : 166 - 358 10*3/ ?L. The reference r laci was not used to interpret this result as normal/abnormal . MPV (test code = 10.7 fL 9.5-12.9 42311-2) NRBC/100 WBC (test See_Comment [Automat ed code = 6957984606) message] The system which generated this result transmitted reference range : 0.0 - 10.0 /100 WBCs. The refer ence range was not u sed to interpret th is result as normal/abnormal . NRBC x10^3 (test code <0.01 See_Comment [Auto mated = 6327958539) message] The s ystem which generated this result transmitted reference range : 10*3/?L. The reference range was not used to interpret this result as normal/abnormal . GRAN MAT (NEUT) % 59.9 % (test code = 770-8) IMM GRAN % (test code 0.30 % = 4530742941) LYMPH % (test code = 30.0 % 736-9) MONO % (test code = 8.4 % 5905-5) EOS % (test code = 0.7 % 713-8) BASO % (test code = 0.7 % 706-2) GRAN MAT x10^3(ANC) 4.47 10*3/uL 1.88-7.09 (test code = 8851217040) IMM GRAN x10^3 (test <0.03 0-0.06 code = 4243282232) LYMPH x10^3 (test code 2.24 10*3/uL 1.32-3.29 = 731-0) MONO x10^3 (test code 0.63 10*3/uL 0.33-0.92 = 742-7) EOS x10^3 (test code = 0.05 10*3/uL 0.03-0.39 711-2) BASO x10^3 (test code 0.05 10*3/uL 0.01-0.07 = 704-7) Lab Interpretation Abnormal (test code = 35782-1) [facility] GLUCOSE (AUTOMATED)2020-07-13 02:06:00 Test Item Value Reference Range Interpretation Comments POCT GLU (test code = 0402523142) 189 mg/dL 70-110 H Lab Interpretation (test code = Abnormal 59087-1) [facility] GLUCOSE (AUTOMATED)2020-07-12 23:18:00 Test Item Value Reference Range Interpretation Comments POCT GLU (test code = 0817334992) 212 mg/dL 70-110 H Lab Interpretation (test code = Abnormal 75257-2) [facility] GLUCOSE (AUTOMATED)2020-07-12 17:58:00 Test Item Value Reference Range Interpretation Comments POCT GLU (test code = 6273151497) 270 mg/dL 70-110 H Lab Interpretation (test code = Abnormal 35163-2) [facility] GLUCOSE (AUTOMATED)2020-07-12 17:19:00 Test Item Value Reference Range Interpretation Comments POCT GLU (test code = 8155906132) 265 mg/dL 70-110 H Lab Interpretation (test code = Abnormal 91716-9) [facility] GLUCOSE (AUTOMATED)2020-07-12 13:42:00 Test Item Value Reference Range Interpretation Comments POCT GLU (test code = 9682350963) 242 mg/dL 70-110 H Lab Interpretation (test code = Abnormal 96452-8) [facility] CenterTHYROID STIMULATING HMKNSJQ2917-52-95 12:20:00 Test Item Value Reference Range Interpretation Comments TSH (test code = See_Comment Biotin has been 1431135414) reported to cau se a negative bias, interpret resul ts relative to pat ient's use of biotin. [Automated mess age] The system [employer] generated this result transmitted ref erence range: 0.45 - 4 .70 mIU/L. The refe rence range was not u sed to interpret this result as normal/abnor mal. Lab Interpretation (test Normal code = 56458-4) [facility] CenterLIPASE2021-[facility] 06:39:00 Test Item Value Reference Range Interpretation Comments LIPASE (test code = 0473739715) 63 U/L 0-220 Lab Interpretation (test code = Normal 51528-5) [facility] METABOLIC PANEL (NA, K, CL, CO2, GLUCOSE, BUN, CREATININE, CA)2020-07-12 05:46:00 Test Item Value Reference Range Interpretation Comments NA (test code = 144 mmol/L 135-145 2382207184) K (test code = 4.0 mmol/L 3.5-5 5504230086) CL (test code = 110 mmol/L 98-108 H 2357058967) CO2 TOTAL (test code = 20 mmol/L 23-31 L 5270638828) AGAP (test code = 2-16 9949892546) BUN (test code = 23 mg/dL 7-23 0474202554) GLUCOSE (test code = 291 mg/dL 70-110 H 4399066005) CREATININE (test code = 0.62 mg/dL 0.5-1.04 1468343654) CALCIUM (test code = 8.4 mg/dL 8.6-10.6 L 3051140130) eGFR Calculation mL/min/1.73m2 (Non-) (test code = 5085895996) eGFR Calculation mL/min/1.73m2 () (test code = 3749654748) EARL (test code = EARL) Association of Glomerular Filtration Rate (GFR) and Staging of Kidney Disease* + --+ --+ ------+| GFR (mL/min/1.73 m2) ?| With Kidney Damage ?| ?Without Kidney Damage+ --------+ --------+ +| ?>90 ?| ?Stage one ?| ? Normal ?+ ---+ ---+ -------+| ?60-89 ?| ?Stage two ?| ? Decreased GFR ? + --+ --+ ------+| ?30-59 ?| ?Stage three ?| ? Stage three ? + --+ --+ ------+| ?15-29 ?| ?Stage four ? | ? Stage four ?+ ---+ ---+ -------+| ?<15 (or dialysis) ? ?| ?Stage five ? | ? Stage five ?+ ---+ ---+ -------+ *Each stage assumes the associated GFR level has been in effect for at least three months. ?Stages 1 to 5, with or without kidney disease, indicate chronic kidney disease. Notes: Determination of stages one and two (with eGFR >59mL/min/1.73 m2) requires estimation of kidney damage for at least three months as defined by structural or functional abnormalities of the kidney, manifested by either:Pathological abnormalities or Markers of kidney damage (including abnormalities in the composition of the blood or urine or abnormalities in imaging tests). Lab Interpretation Abnormal (test code = 34577-1) [facility] >30DAYS)2020-07-12 04:15:00 Test Item Value Reference Range Interpretation Comments POCT Glu (age>30days) (test code = 265mg/dl 70-110 3342) Lab Interpretation (test code = Normal 99278-0) [facility] CenterCOVID[facility] (ID NOW RAPID TESTING)2020-07-12 04:14:00 Test Item Value Reference Range Interpretation Comments SARS-CoV-2 Rapid ID NOW Not Detected Not Detected (test code = 19994-4) EARL (test code = EARL) ID NOW COVID-19 Assay is an isothermal nucleic acid amplification test intended for the qualitative detection of nucleic acid from SARS-CoV-2 viral RNA in nasopharyngeal (PROOF TECHNICIAN) specimens. It is used under Emergency Use Authorization (EUA) by FDA. The limit of detection (LOD) of the assay is 125 Genome Equivalents/mL. A positive result is indicative of the presence of SARS-CoV-2 RNA. ?Clinical correlation with patient history and other diagnostic information is necessary to determine patient infection status. A negative (Not Detected) result does not preclude SARS-CoV-2 infection. In patients with clinical symptoms and other tests that are consistent with SARS-CoV-2 infection, negative results should be treated as presumptive negative and a new specimen should be tested with alternative PCR molecular test. Invalid: Please collect a new specimen for repeat patient testing if clinically indicated. Lab Interpretation Normal (test code = 23020-7) [facility] CenterCOM. METABOLIC PANEL (15438)2020-07-12 04:05:00 Test Item Value Reference Range Interpretation Comments NA (test code = 146 mmol/L 135-145 H 8346501276) K (test code = 4.6 mmol/L 3.5-5 5316633420) CL (test code = 103 mmol/L 98-108 4087731790) CO2 TOTAL (test code = 22 mmol/L 23-31 L 2656053502) AGAP (test code = 2-16 H 6739981890) BUN (test code = 26 mg/dL 7-23 H 2391807522) GLUCOSE (test code = 326 mg/dL 70-110 H 9418824543) CREATININE (test code = 0.62 mg/dL 0.5-1.04 8196017562) TOTAL BILI (test code = 1.2 mg/dL 0.1-1.1 H 9800991866) CALCIUM (test code = 9.7 mg/dL 8.6-10.6 9255610045) T PROTEIN (test code = 9.1 g/dL 6.3-8.2 H 9200683143) ALBUMIN (test code = 5.0 g/dL 3.5-5 0625490972) ALK PHOS (test code = 73 U/L 34-122 2246177350) ALTv (test code = 79 U/L 5-35 H 1742-6) AST(SGOT) (test code = 48 U/L 13-40 H 1998807751) eGFR Calculation mL/min/1.73m2 (Non-) (test code = 7016545314) eGFR Calculation mL/min/1.73m2 () (test code = 9366696098) EARL (test code = EARL) Association of Glomerular Filtration Rate (GFR) and Staging of Kidney Disease* + --+ --+ ------+| GFR (mL/min/1.73 m2) ?| With Kidney Damage ?| ?Without Kidney Damage+ --------+ --------+ +| ?>90 ?| ?Stage one ?| ? Normal ?+ ---+ ---+ -------+| ?60-89 ?| ?Stage two ?| ? Decreased GFR ? + --+ --+ ------+| ?30-59 ?| ?Stage three ?| ? Stage three ? + --+ --+ ------+| ?15-29 ?| ?Stage four ? | ? Stage four ?+ ---+ ---+ -------+| ?<15 (or dialysis) ? ?| ?Stage five ? | ? Stage five ?+ ---+ ---+ -------+ *Each stage assumes the associated GFR level has been in effect for at least three months. ?Stages 1 to 5, with or without kidney disease, indicate chronic kidney disease. Notes: Determination of stages one and two (with eGFR >59mL/min/1.73 m2) requires estimation of kidney damage for at least three months as defined by structural or functional abnormalities of the kidney, manifested by either:Pathological abnormalities or Markers of kidney damage (including abnormalities in the composition of the blood or urine or abnormalities in imaging tests). Lab Interpretation Abnormal (test code = 29946-8) [facility] 03:01:00 Test Item Value Reference Range Interpretation Comments MAGNESIUM (test code = 2.4 mg/dL 1.7-2.4 Sligh t hemolysis 1573902238) Lab Interpretation (test Normal code = 95657-3) [facility] CenterXR CHEST 1 [id number] 02:52:25 No acute cardiopulmonary abnormality. Preliminary Report Dictated by Resident: Anjelica Poole MD., have reviewed this study and agree with theabove report.EXAM: XR CHEST 1 VWHISTORY: vomiting COMPARISON: Chest x-ray 12/26/2013 Technique: ?AP view radiograph of the chest FINDINGS: The lungs are clear. No focal consolidation, pleural effusion orpneumothorax is seen. The cardiac silhouette is normal in size. No acute bony abnormality. [facility], Radiant Results Inft User - 07/11/2020 9:47 PM CSTEXAM: XR CHEST 1 VWHISTORY: vomiting COMPARISON: Chest x-ray 12/26/2013Technique: AP view radiograph of the chestFINDINGS:The lungs are clear. No focal consolidation, pleural effusion o rpneumothorax is seen. The cardiac silhouette is normal in size.No acute bony abnormality.IMPRESSIONNo acute cardiopulmonary abnormality.Preliminary Report Dictated by Resident: Anjelica Florez MD., have reviewed this study and agree with theabove report.[facility] [id number] 02:46:00 Test Item Value Reference Range Interpretation Comments APPEARANCE (test code = Hazy Clear A 4197018768) COLOR (test code = Yellow Yellow 1356927986) PH (test code = 4.8-8.0 3721550832) SP GRAVITY (test code = 1.003-1.030 2731317288) GLU U QUAL (test code = 500 mg/dL Normal A 8992733703) BLOOD (test code = Negative Negative 3558261350) KETONES (test code = 80 mg/dL Negative A 0048305626) PROTEIN (test code = 30 mg/dL Negative A 2887-8) UROBILIN (test code = Normal Normal 6976110595) BILIRUBIN (test code = Negative Negative 8316887444) NITRITE (test code = Negative Negative 7010141074) LEUK AISHWARYA (test code = 25/uL Negative A 1694178238) RBC/HPF (test code = <1 See_Comment [Autom ated message] 2957056826) The system [employer] generated this result transmit [place] reference range : 0 - 3 HPF. The refe rence range was not u sed to interpret th is result as normal/abnormal . WBC/HPF (test code = See_Comment H [Autom ated message] 1141273888) The system [employer] generated this result transmit [place] reference range : 0 - 5 HPF. The refe rence range was not u sed to interpret th is result as normal/abnormal . BACTERIA (test code = Few Negative A 7579091212) SQ EPITH (test code = HPF 3967744207) Lab Interpretation (test Abnormal code = 63838-3) [facility] WITH [id number] 02:31:00 Test Item Value Reference Range Interpretation Comments WBC (test code = See_Comment H [Automated 4890-2) message] The system which generated this result transmit [place] reference range : 4.30 - 11.10 10*3/?L. The reference range was not used to interpret this result as normal/abnormal . RBC (test code = See_Comment [Automated 151-8) message] The system which generated this result transmit [place] reference range : 3.93 - 5.25 10*6/?L. The reference range was not used to interpret this result as normal/abnormal . HGB (test code = 13.0 g/dL 11.6-15 718-7) HCT (test code = 39.0 % 35.7-45.2 4544-3) MCV (test code = 84.4 fL 80.6-95.5 787-2) MCH (test code = 28.1 pg 25.9-32.8 785-6) MCHC (test code = 33.3 g/dL 31.6-35.1 786-4) RDW-SD (test code = 40.4 fL 39-49.9 05952-1) RDW-CV (test code = 13.2 % 12-15.5 788-0) PLT (test code = See_Comment [Automated 777-3) message] The system which generated this result transmit [place] reference range : 166 - 358 10*3/ ?L. The reference range was not u sed to interpret th is result as normal/abnormal . MPV (test code = 11.0 fL 9.5-12.9 86407-0) NRBC/100 WBC (test See_Comment [Automat ed code = 1118604853) message] The system which generated this result transmit [place] reference range : 0.0 - 10.0 /100 WBCs. The reference range was not used to interpret this result as normal/abnormal . NRBC x10^3 (test code <0.01 See_Comment [Auto mated = [id number]) message] The system which generated this result transmit [place] reference range : 10*3/?L. The reference range was not used to interpret this result as normal/abnormal . GRAN MAT (NEUT) % 83.8 % (test code = 770-8) IMM GRAN % (test code 0.60 % = 3227623759) LYMPH % (test code = 10.5 % 736-9) MONO % (test code = 4.4 % 5905-5) EOS % (test code = 0.1 % 713-8) BASO % (test code = 0.6 % 706-2) GRAN MAT x10^3(ANC) 11.88 10*3/uL 1.88-7.09 H (test code = 9558402537) IMM GRAN x10^3 (test 0.08 10*3/uL 0-0.06 H code = 0553852766) LYMPH x10^3 (test code 1.49 10*3/uL 1.32-3.29 = 731-0) MONO x10^3 (test code 0.63 10*3/uL 0.33-0.92 = 742-7) EOS x10^3 (test code = <0.03 0.03-0.39 L 711-2) BASO x10^3 (test code 0.08 10*3/uL 0.01-0.07 H = 704-7) Lab Interpretation Abnormal (test code = 97954-6) [facility] [id number] 02:27:00 Test Item Value Reference Range Interpretation Comments PH (test code = 7.32-7.42 5012213825) PCO2 DERRICK (test code = See_Comment [Auto mated [id number]) message] The sy stem which generated this result transmitted reference range : 41 - 51 mmHg. The reference range was not used to interpret this result as normal/abnormal . PO2 DERRICK (test code = See_Comment [Autom ated 3902853939) message] The sy stem which generated this result transmitted reference range : 25 - 40 mmHg. The reference range was not used to interpret this result as normal/abnormal . HCO3 DERRICK (test code = See_Comment L [Auto mated 3941026158) message] The sy stem which generated this result transmitted reference range : 24 - 28 mEq/L. The reference range was not used to interpret this result as normal/abnormal . AC VBE(BEAKER) (test mEq/L code = 8365483820) THB DERRICK (test code = 13.8 g/dL 12-16 8889918386) %O2HB DERRICK (test code = 69.0 % 52-63 H 5617375874) %COHB DERRICK (test code = 1.1 % 0-1.5 5711601362) %METHB DERRICK (test code = 0.3 % 0.4-1.5 L 3589775541) VOL%O2 DERRICK (test code = 13.3 % 6-12 H 1251980683) NA (test code = 145 mmol/L 135-145 3923154399) K+ (test code = 4.5 mmol/L 3.5-5 5575101406) AC CA IONZ (test code = 4.80 mg/dL 4.5-5.3 7308619783) GLUCOSE (test code = 342 mg/dL 70-110 H 8711333129) LACTIC ACID (test code 3.23 mmol/L = 5383347612) Lab Interpretation Abnormal (test code = 88552-6) [facility] GLUCOSE (AUTOMATED)2020-07-12 02:05:00 Test Item Value Reference Range Interpretation Comments POCT GLU (test code = 3915038042) 329 mg/dL 70-110 H Lab Interpretation (test code = Abnormal 96084-3) [facility] [id number] 01:55:00 Test Item Value Reference Range Interpretation Comments On board controls acceptable with Present C Line (test code = 3574) POCT PREG LOT # (test code = 3575) [id number] POCT PREG TEST DATE (test 04/16/2021 code = 3576) POCT PREG (test code = 1605) Negative Lab Interpretation (test code = Normal 40428-1) [facility] HEMOGLOBIN A1C [id number] 21:47:00 Test Item Value Reference Range Interpretation Comments POCT HBA1C (test code = 4548-4) 9.0 % 4-6 A Lab Interpretation (test code = Abnormal 62539-6) [facility] HEMOGLOBIN A1C [id number] 21:47:00 Test Item Value Reference Range Interpretation Comments POCT HBA1C (test code = 4548-4) 9.0 % 4-6 A Lab Interpretation (test code = Abnormal 99619-5) [facility] [id number] 22:41:00 Test Item Value Reference Range Interpretation Comments TSH (test code = See_Comment [Automated message] 4143933260) The system [employer] generated this result transmitted ref erence range: 0.45 - 4 .70 mIU/L. The refe rence range was not u sed to interpret this result as normal/abnor mal. Lab Interpretation (test Normal code = 25141-1) [facility] [id number] 22:27:00 Test Item Value Reference Range Interpretation Comments FREE T4 (test code = See_Comment [Autom ated message] 1469578659) The system [employer] generated this result transmitted ref erence range: 0.78 - 2 .20 ng/dL:. The ref erence range was not u sed to interpret this result as normal/abnor mal. Lab Interpretation (test Normal code = 79389-1) [facility]. METABOLIC PANEL (90473)2020-03-24 22:12:00 Test Item Value Reference Range Interpretation Comments NA (test code = 135 mmol/L 135-145 4952038430) K (test code = 4.9 mmol/L 3.5-5 8534513684) CL (test code = 94 mmol/L 98-108 L 7584514417) CO2 TOTAL (test code = 31 mmol/L 23-31 1772113877) AGAP (test code = 2-16 0380438947) BUN (test code = 14 mg/dL 7-23 8649129204) GLUCOSE (test code = 303 mg/dL 70-110 H 9490437503) CREATININE (test code = 0.57 mg/dL 0.5-1.04 9945853153) TOTAL BILI (test code = 0.6 mg/dL 0.1-1.8 2615403898) CALCIUM (test code = 10.0 mg/dL 8.6-10.6 3386544628) T PROTEIN (test code = 7.2 g/dL 6.3-8.2 6178261408) ALBUMIN (test code = 4.5 g/dL 3.5-5 2112662031) ALK PHOS (test code = 79 U/L 34-122 3770571555) ALTv (test code = 17 U/L 5-35 1742-6) AST(SGOT) (test code = 22 U/L 13-40 0031779819) eGFR Calculation mL/min/1.73m2 (Non-) (test code = 9083030376) eGFR Calculation mL/min/1.73m2 () (test code = 0225073758) EARL (test code = EARL) Association of Glomerular Filtration Rate (GFR) and Staging of Kidney Disease* + --+ --+ ------+| GFR (mL/min/1.73 m2) ?| With Kidney Damage ?| ?Without Kidney Damage+ --------+ --------+ +| ?>90 ?| ?Stage one ?| ? Normal ?+ ---+ ---+ -------+| ?60-89 ?| ?Stage two ?| ? Decreased GFR ? + --+ --+ ------+| ?30-59 ?| ?Stage three ?| ? Stage three ? + --+ --+ ------+| ?15-29 ?| ?Stage four ? | ? Stage four ?+ ---+ ---+ -------+| ?<15 (or dialysis) ? ?| ?Stage five ? | ? Stage five ?+ ---+ ---+ -------+ *Each stage assumes the associated GFR level has been in effect for at least three months. ?Stages 1 to 5, with or without kidney disease, indicate chronic kidney disease. Notes: Determination of stages one and two (with eGFR >59mL/min/1.73 m2) requires estimation of kidney damage for at least three months as defined by structural or functional abnormalities of the kidney, manifested by either:Pathological abnormalities or Markers of kidney damage (including abnormalities in the composition of the blood or urine or abnormalities in imaging tests). Lab Interpretation Abnormal (test code = 27066-2) [facility] (03740)(TOTAL CHOLESTEROL, TRIGLYCERIDES, HDL)2020-03-24 22:12:00 Test Item Value Reference Range Interpretation Comments CHOL (test code = 154 mg/dL 120-200 0984343282) HDL (test code = 58 mg/dL >50 4345068382) HDLC RATIO (test code = See_Comment [Au tomated message] 1993138179) The system [employer] generated this result transmit [place] reference range : <=4.5. The refe rence range was not u sed to interpret th is result as normal/abnormal . TRIG (test code = 59 mg/dL 30-170 6998501687) LDL CHOL (test code = 84 mg/dL See_Comment [Auto mated message] 71313-8) The system [employer] generated this result transmit [place] reference range : <=160. The refe rence range was not u sed to interpret th is result as normal/abnormal . VLDL (test code = 12 mg/dL 5-60 8625533910) Lab Interpretation (test Normal code = 26611-2) [facility] WITH [id number] 21:27:00 Test Item Value Reference Range Interpretation Comments WBC (test code = See_Comment [Automated message] 6690-2) The system [employer] generated this result transmitted ref erence range: 4.30 - 1 1.10 10*3/?L. The re ference range was not u sed to interpret this result as normal/abnor mal. RBC (test code = See_Comment [Automated message] 139-8) The system [employer] generated this result transmitted ref erence range: 3.93 - 5 .25 10*6/?L. The re ference range was not u sed to interpret this result as normal/abnor mal. HGB (test code = 12.2 g/dL 11.6-15 718-7) HCT (test code = 37.0 % 35.7-45.2 4544-3) MCV (test code = 85.3 fL 80.6-95.5 787-2) MCH (test code = 28.1 pg 25.9-32.8 785-6) MCHC (test code = 33.0 g/dL 31.6-35.1 786-4) RDW-SD (test code 39.3 fL 39-49.9 = 86188-5) RDW-CV (test code 12.7 % 12-15.5 = 788-0) PLT (test code = See_Comment [Automated message] 777-3) The system [employer] generated this result transmitted ref erence range: 166 - 35 8 10*3/?L. The re ference range was not u sed to interpret this result as normal/abnor mal. MPV (test code = 11.3 fL 9.5-12.9 31047-0) NRBC/100 WBC (test See_Comment [Automat ed message] code = 3127900123) The syste [employer] which generated this result transmitted ref erence range: 0.0 - 10 .0 /100 WBCs. The refer ence range was not u sed to interpret this result as normal/abnor mal. NRBC x10^3 (test <0.01 See_Comment [Automated message] code = 4071587868) The syste m which generated this result transmitted ref erence range: 10*3/?L. The reference range was not used to interpr et this result as normal/abnormal . GRAN MAT (NEUT) % 63.2 % (test code = 770-8) IMM GRAN % (test 0.40 % code = 6478037658) LYMPH % (test code 29.0 % = 736-9) MONO % (test code 5.4 % = 5905-5) EOS % (test code = 1.1 % 713-8) BASO % (test code 0.9 % = 706-2) GRAN MAT 5.00 10*3/uL 1.88-7.09 x10^3(ANC) (test code = 9975812192) IMM GRAN x10^3 0.03 10*3/uL 0-0.06 (test code = 4775423862) LYMPH x10^3 (test 2.30 10*3/uL 1.32-3.29 code = 731-0) MONO x10^3 (test 0.43 10*3/uL 0.33-0.92 code = 742-7) EOS x10^3 (test 0.09 10*3/uL 0.03-0.39 code = 711-2) BASO x10^3 (test 0.07 10*3/uL 0.01-0.07 code = 704-7) [facility] HEMOGLOBIN A1C [id number] 20:21:00 Test Item Value Reference Range Interpretation Comments POCT HBA1C (test code = 4548-4) 7.8 % 4-6 A Lab Interpretation (test code = Abnormal 97127-8) [facility] HEMOGLOBIN A1C [id number] 20:21:00 Test Item Value Reference Range Interpretation Comments POCT HBA1C (test code = 4548-4) 7.8 % 4-6 A Lab Interpretation (test code = Abnormal 99857-1) [facility] HEMOGLOBIN A1C [id number] 19:45:00 Test Item Value Reference Range Interpretation Comments POCT HBA1C (test code = 4548-4) 8.5 % 4-6 [facility] HEMOGLOBIN A1C [id number] 19:45:00 Test Item Value Reference Range Interpretation Comments POCT HBA1C (test code = 4548-4) 8.5 % 4-6 [facility]
[2021-06-17 18:00] LABS: Urine Blood Trace-intact (Negative); Urine Glucose 2+ (Negative); Urine Protein 2+ (Negative); Urine Specific Gravity 1.015 (1.005-1.030); Urine pH 6.5 (5.0-7.0)
[2021-06-17 18:09] LABS: Absolute Lymphocytes (CBC) 0.9 K/uL (0.7-4.9); Hematocrit 38.4 % (36.0-45.0); Lymphocytes % 12.1 % (15.3-44.8); MPV 8.8 fL (7.6-11.3); RBC Red Blood Cell Count 4.71 M/uL (3.86-4.86)
[2021-06-17 18:24] LABS: Potassium 3.8 mmol/L (3.5-5.1)
[2021-06-17 19:05] LABS: Urine Bacteria 20-50 /HPF (<20)
[2021-06-17] MEDS ORDERED: ACETAMINOPHEN 500 MG TAB ONE (19:18)
[2021-06-17] MEDS ORDERED: ONDANSETRON 4 MG (ODT) TAB ONE (19:19)
[2021-06-17 19:26] LABS: SARS-COV-2 RT PCR NEGATIVE (NEGATIVE)
--- NOTE | 2021-06-17 19:36 | EDPHYS ---
Physician Documentation [facility] Name: Georgiana Fenton Age: 30 yrs Sex: Female : 1990 Arrival Date: 06/17/2021 Time: 16:52 Bed 10 Private MD: ED Physician Kyle Welch HPI: 06/17 17:45 This 30 yrs old Female presents to ER via Ambulatory with complaints of Fever, jr8 Chills, Back Pain. 17:45 Severity of symptoms: At their worst the symptoms were moderate in the emergency jr8 department the symptoms are unchanged. It is unknown whether or not the patient has had similar symptoms in the past. The patient has not recently seen a physician. Lower back pain since . Cold sweats and fever today. History of diabetes. Glucose has been elevated today despite insulin at home. Denies vomiting, diarrhea, URI symptoms, or urinary symptoms . Historical: - Allergies: 17:37 No Known Allergies; iw - Home Meds: 17:37 Novolin N 100 unit/mL Sub-Q susp [Active]; Tresiba FlexTouch U-100 100 unit/mL (3 mL) iw subcutaneous inpn 18 units [Active]; Novolin R Sub-Q before meals [Active]; - PMHx: 17:37 Diabetes - IDDM; Hypothyroidism; iw - Immunization history:: Client reports receiving the 2nd dose of the Covid vaccine. - Social history:: Smoking status: Patient denies any tobacco usage or history of. ROS: 17:45 Eyes: Negative for injury, pain, redness, and discharge, ENT: Negative for injury, jr8 pain, and discharge, Neck: Negative for injury, pain, and swelling, Cardiovascular: Negative for chest pain, palpitations, and edema, Respiratory: Negative for shortness of breath, cough, wheezing, and pleuritic chest pain, MS/Extremity: Negative for injury and deformity, Skin: Negative for injury, rash, and discoloration, Neuro: Negative for headache, weakness, numbness, tingling, and seizure. 17:45 Abdomen/GI: Positive for nausea, Negative for abdominal pain, vomiting, diarrhea. 17:45 Back: Positive for pain at rest, of the low back area, Negative for pain with movement, radiated pain. Exam: 17:45 Constitutional: This is a well developed, well nourished patient who is awake, alert, jr8 and in no acute distress. Eyes: Pupils equal round and reactive to light, extra-ocular motions intact. Lids and lashes normal. Conjunctiva and sclera are non-icteric and not injected. Cornea within normal limits. Periorbital areas with no swelling, redness, or edema. ENT: Nares patent. No nasal discharge, no septal abnormalities noted. Tympanic membranes are normal and external auditory canals are clear. Oropharynx with no redness, swelling, or masses, exudates, or evidence of obstruction, uvula midline. Mucous membranes moist. Neck: Trachea midline, no thyromegaly or masses palpated, and no cervical lymphadenopathy. Supple, full range of motion without nuchal rigidity, or vertebral point tenderness. No Meningismus. Cardiovascular: Regular rate and rhythm with a normal S1 and S2. No gallops, murmurs, or rubs. Normal PMI, no JVD. No pulse deficits. Respiratory: Lungs have equal breath sounds bilaterally, clear to auscultation and percussion. No rales, rhonchi or wheezes noted. No increased work of breathing, no retractions or nasal flaring. Abdomen/GI: Soft, non-tender, with normal bowel sounds. No distension or tympany. No guarding or rebound. No evidence of tenderness throughout. Back: No spinal tenderness. Right sided costovertebral tenderness. Full range of motion. Skin: Warm, dry with normal turgor. Normal color with no rashes, no lesions, and no evidence of cellulitis. MS/ Extremity: Pulses equal, no cyanosis. Neurovascular intact. Full, normal range of motion. Neuro: Awake and alert, GCS 15, oriented to person, place, time, and situation. Cranial nerves II-XII grossly intact. Motor strength 5/5 in all extremities. Sensory grossly intact. Vital Signs: 17:36 BP 125 / 68; Pulse 101; Resp 18; Temp 100.7; Pulse Ox 100% ; Weight 65.77 kg; Height 5 iw ft. 3 in. (160.02 cm); 20:05 BP 124 / 68; Pulse 87; Resp 16; Temp 99.8(O); Pulse Ox 98% ; lt3 17:36 Body Mass Index 25.69 (65.77 kg, 160.02 cm) iw MDM: 17:51 Patient medically screened. [facility] 19:27 Data reviewed: vital signs, nurses notes, lab test result(s), and as a result, I will jr8 discharge patient. Data interpreted: Pulse oximetry: on room air is 100 %. Interpretation: normal. Counseling: I had a detailed discussion with the patient and/or guardian regarding: the historical points, exam findings, and any diagnostic results supporting the discharge/admit diagnosis, lab results, the need for outpatient follow up, a family practitioner, to return to the emergency department if symptoms worsen or persist or if there are any questions or concerns that arise at home. 19:35 ED course: Discussed with patient that based on our findings on physical exam and lab jr8 work. Most likely has a right-sided acute pyelonephritis. Started antibiotics here but will send her home on antibiotics and antiemetics. Needs to continue to push fluids and monitor her glucose closely. Patient overall feeling better. Close return precautions given to patient. Patient is good with this and will follow up in or come back immediately if things were to worsen.. 06/17 17:40 Order name: COVID-19/FLU A+B (Document "Date of Onset" if Symptomatic); Complete Time: iw 19:27 06/17 17:40 Order name: CBC with Diff; Complete Time: 18:44 06/17 17:40 Order name: Basic Metabolic Panel; Complete Time: 18:44 06/17 17:50 Order name: Urine Microscopic Only; Complete Time: 19:16 [facility] 06/17 17:59 Order name: Urine Dipstick-Ancillary; Complete Time: 18:44 [facility] 06/17 19:07 Order name: Urine Culture [facility] 06/17 17:40 Order name: Urine Dipstick-Ancillary (obtain specimen); Complete Time: 19:32 06/17 17:50 Order name: Urine Test (obtain specimen); Complete Time: 19:57 [facility] 06/17 19:00 Order name: IV Saline Lock; Complete Time: 19:00 kj1 Administered Medications: 19:20 Drug: Tylenol 1000 mg Route: PO; iw 20:18 Follow up: Response: No adverse reaction bb 19:21 Drug: Ondansetron 4 mg Route: PO; iw 20:18 Follow up: Response: No adverse reaction bb 20:10 Drug: Rocephin (cefTRIAXone) 1 grams Route: IV; Rate: calculated rate; Site: right bb antecubital; 20:17 Follow up: IV Status: Completed infusion; IV Intake: 10ml bb Disposition: 06/18 04:40 Co-signature as Attending Physician, Kyle Welch MD I agree with the assessment and mendel plan of care. Disposition Summary: 06/17/21 19:36 Discharge Ordered Location: Home jr8 Problem: new jr8 Symptoms: have improved jr8 Condition: Stable jr8 Diagnosis - Pyelonephritis acute jr8 Followup: jr8 - With: Private Physician - When: 2 - 3 days - Reason: Recheck today's complaints, Continuance of care, Re-evaluation by your physician Discharge Instructions: - Discharge Summary Sheet jr8 - Pyelonephritis, Adult jr8 Forms: - Work release form iw - Medication Reconciliation Form jr8 - Thank You Letter jr8 - Antibiotic Education jr8 - Prescription Opioid Use jr8 Prescriptions: - Zofran 4 mg Oral Tablet - take 1 tablet by ORAL route every 12 hours As needed; 20 tablet; Refills: 0, jr8 Product Selection Permitted - Cipro 500 mg Oral Tablet - take 1 tablet by ORAL route every 12 hours for 7 days; 14 tablet; Refills: 0, jr8 Product Selection Permitted Signatures: Dispatcher [employer] Kyle Garcia MD MD cha Ballard, Brenda RN RN Felipa Acevedo RN RN iw Roszak, Josh, PA PA jr8 Kenya Whatley kj1
--- NOTE | 2021-06-17 19:36 | ER ---
Nurse's Notes [facility] Name: Georgiana Fenton Age: 30 yrs Sex: Female : 1990 Arrival Date: 06/17/2021 Time: 16:52 Bed 10 Private MD: Diagnosis: Pyelonephritis acute Presentation: 06/17 17:36 Chief complaint: Patient states: low back pain, nausea, fever, started . iw Coronavirus screen: Client presents with at least one sign or symptom that may indicate coronavirus-19. Ebola Screen: Patient negative for fever greater than or equal to 101.5 degrees Fahrenheit, and additional compatible Ebola Virus Disease symptoms Patient denies exposure to infectious person. Patient denies travel to an Ebola-affected area in the 21 days before illness onset. No symptoms or risks identified at this time. Initial Sepsis Screen: Does the patient meet any 2 criteria? No. Patient's initial sepsis screen is negative. Does the patient have a suspected source of infection? No. Patient's initial sepsis screen is negative. Risk Assessment: Do you want to hurt yourself or someone else? Patient reports no desire to harm self or others. Onset of symptoms was June 14, 2021. 17:36 Method Of Arrival: Ambulatory iw 17:36 Acuity: CHICHO 4 iw 17:40 Acuity: CHICHO 3 iw Historical: - Allergies: 17:37 No Known Allergies; iw - Home Meds: 17:37 Novolin N 100 unit/mL Sub-Q susp [Active]; Tresiba FlexTouch U-100 100 unit/mL (3 mL) iw subcutaneous inpn 18 units [Active]; Novolin R Sub-Q before meals [Active]; - PMHx: 17:37 Diabetes - IDDM; Hypothyroidism; iw - Immunization history:: Client reports receiving the 2nd dose of the Covid vaccine. - Social history:: Smoking status: Patient denies any tobacco usage or history of. Screenin:19 Abuse screen: Denies threats or abuse. Nutritional screening: No deficits noted. bb Tuberculosis screening: No symptoms or risk factors identified. Fall Risk None identified. Assessment: 19:29 Reassessment: Patient appears in no apparent distress at this time. pt medicated in iw lobby, sitting with pt , NAD. 20:18 Reassessment: Patient is alert, oriented x 3, equal unlabored respirations, skin bb warm/dry/pink. pt seen by this RN at discharge pt verbalized understanding of and agrees to plan of care discharge instruction given pt ambulated with steady gait to exit accompanied by family. Vital Signs: 17:36 BP 125 / 68; Pulse 101; Resp 18; Temp 100.7; Pulse Ox 100% ; Weight 65.77 kg; Height 5 iw ft. 3 in. (160.02 cm); 20:05 BP 124 / 68; Pulse 87; Resp 16; Temp 99.8(O); Pulse Ox 98% ; lt3 17:36 Body Mass Index 25.69 (65.77 kg, 160.02 cm) iw ED Course: 16:52 Patient arrived in ED. ds1 17:36 Triage completed. iw 17:37 Arm band placed on. iw 17:45 Anant Romero PA is PHCP. jr8 17:45 Kyle Welch MD is Attending Physician. jr8 18:00 Initial lab(s) drawn, by me, sent to lab. Inserted saline lock: 20 gauge in right kj1 antecubital area, using aseptic technique. Blood collected. 20:19 Patient has correct armband on for positive identification. bb 20:19 No provider procedures requiring assistance completed. IV discontinued, intact, bb bleeding controlled, No redness/swelling at site. Pressure dressing applied. Administered Medications: 19:20 Drug: Tylenol 1000 mg Route: PO; iw 20:18 Follow up: Response: No adverse reaction bb 19:21 Drug: Ondansetron 4 mg Route: PO; iw 20:18 Follow up: Response: No adverse reaction bb 20:10 Drug: Rocephin (cefTRIAXone) 1 grams Route: IV; Rate: calculated rate; Site: right bb antecubital; 20:17 Follow up: IV Status: Completed infusion; IV Intake: 10ml bb Intake: 20:17 IV: 10ml; Total: 10ml. bb Outcome: 19:36 Discharge ordered by . jr8 20:20 Discharged to home ambulatory, with family. bb 20:20 Condition: stable 20:20 Discharge instructions given to patient, Instructed on discharge instructions, follow up and referral plans. medication usage, Demonstrated understanding of instructions, follow-up care, medications, Prescriptions given X 2. 20:20 Patient left the ED. bb Signatures: Maxine Stanley ds1 Karmen Callejas RN RN Felipa Acevedo RN RN iw Anant Romero PA PA jr8 Kenya Whatley kj1 Lian Echevarria 3
[2021-06-17] MEDS ORDERED: CEFTRIAXONE 1000 MG/VIAL ONE (20:01)
[2021-06-17 20:29] VITALS: BP 124/68; TEMP 99.8; O2SAT 98
== END 2021-06-17 20:20 | disposition home or self-care (01) ==
LOC: ER 16:49
DX: N10 Acute pyelonephritis (principal); E11.9 Type 2 diabetes mellitus without complications; Z20.822 Contact with and (suspected) exposure to COVID-19
CPT/HCPCS: 87088; 85025; 87086; 80048; 36415; 87077; 87186; 0240U; 96374; 99284; 81003; 81015